=== PATIENT | female | born 1945 | race Caucasian/White ===

== ENCOUNTER 2018-01-12 11:28 | Inpatient (IN) | payer OTHER ==
[2018-01-12] MEDS ORDERED: ADENOSINE 6 MG/ 2ML VIAL IV ONE (11:33)
[2018-01-12] MEDS ORDERED: NA CHLORIDE 0.9% 1,000 ML ONE (11:34)
[2018-01-12] MEDS ORDERED: NOREPINEPHRINE 4mg/D5W 250mL 4 MG/250 ML BAG IV ONE (11:55)
[2018-01-12 12:08] LABS: Absolute Lymphocytes (CBC) 1.5 K/uL (0.7-4.9); Basophils % 0.2 % (0-1.3); Hematocrit 34.2 % (36.0-45.0); Lymphocytes % 10.6 % (15.3-44.8); MCH 30.9 pg (27.0-35.0); MCV 99.4 fL (80-100); MPV 9.7 fL (7.6-11.3); Monocytes % 6.6 % (3.3-12.3); RBC Red Blood Cell Count 3.44 M/uL (3.86-4.86)
[2018-01-12 12:12] LABS: Protime INR 1.07
[2018-01-12 12:34] LABS: ALT/SGPT 29 IU/L (10-60); AST/SGOT 30 IU/L (10-42); Alkaline Phosphatase 74 IU/L (42-121); Amylase Level 30 U/L (28-100); Bicarbonate 17 mEq/L (21-31); Bilirubin Direct < 0.1 mg/dL (0-0.2); Bilirubin Total 0.4 mg/dL (0.3-1.2); C-Reactive Protein 22.7 mg/L (<10.0); CKMB Creatine Kinase MB 1.1 ng/ml (0.3-4.0); Creatine Phosphokinase 31 IU/L (22-269); Glucose Level 221 mg/dL (65-120); Lipase 14 U/L (22-51); Potassium 5.3 mEq/L (3.6-5.0); Protein, Total 5.9 g/dL (6.0-8.3); Sodium Level 138 mEq/L (135-145)
--- NOTE | 2018-01-12 12:49 | RAD REPORT ---
EXAM DESCRIPTION: RAD - Chest Single View - 01/12/2018 12:42 pm CLINICAL HISTORY: Central line placement COMPARISON: January 2017 TECHNIQUE: AP portable chest image was obtained 1217 hours . FINDINGS: Right subclavian central line has been placed. Tip is in the right atrium. No mass, consolidation or failure. Interstitial markings are prominent but not clearly different from prior imaging. Heart and vasculature are normal. No measurable pleural effusion and no pneumothorax. No acute bone finding. No acute aortic findings suspected. IMPRESSION: Right subclavian central line placement with tip in the right atrium. No pneumothorax.
[2018-01-12] MEDS ORDERED: VANCOMYCIN 1 GM/250 ML BAG ONE (13:06)
[2018-01-12] MEDS ORDERED: NA CHLORIDE 0.9% 2,000 ML ONE (13:06)
[2018-01-12] MEDS ORDERED: CEFEPIME 1 GM/100 ML BAG IV ONE (13:06)
--- NOTE | 2018-01-12 13:31 | RAD REPORT ---
EXAM DESCRIPTION: RAD - Chest Single View - 01/12/2018 1:11 pm CLINICAL HISTORY: Central line repositioning COMPARISON: January 12 chest film TECHNIQUE: AP portable chest image was obtained 1300 hours . FINDINGS: Right subclavian central line has been modified from earlier positioning. Tip of the line is now 0 in the proximal to mid SVC. No acute bend or kink of the tubing. The remains no pneumothorax or acute lung parenchymal process. Heart and vasculature are normal. IMPRESSION: Right subclavian central line has been modified. Tip is in the proximal to mid SVC.
[2018-01-12] MEDS ORDERED: NA CHLORIDE 0.9% 750 ML ONE (13:41)
[2018-01-12 13:46] LABS: Albumin 2.8 g/dL (3.2-5.5); BUN Blood Urea Nitrogen 28 mg/dL (6-20)
[2018-01-12] MEDS ORDERED: ALBUTEROL 2.5 MG/3 ML NEB SOL ONE (14:11)
[2018-01-12] MEDS ORDERED: INSULIN -REGULAR HUMAN 50 UNIT/0.5 ML ML ONE (14:11)
[2018-01-12] MEDS ORDERED: D50W 25 GM/50 ML SYRINGE IV ONE (14:11)
--- NOTE | 2018-01-12 14:16 | RAD REPORT ---
EXAM DESCRIPTION: CT - Chest Abd Pelvis Wo Con - 01/12/2018 1:52 pm CLINICAL HISTORY: Abdominal pain, nausea, hypotension, left-sided abdominal wall bruising and tenderness tachypnea and bradycardia COMPARISON: None. TECHNIQUE: Axial 5 millimeter thick images of the chest, abdomen and pelvis were obtained without IV contrast. No oral contrast administered. All CT scans are performed using dose optimization technique as appropriate and may include automated exposure control or mA/KV adjustment according to patient size. FINDINGS: The lungs are clear of mass and infiltrate. No pneumothorax or pleural effusion. No ches t wall mass or abnormal axillary lymphadenopathy seen. Mediastinal and hilar regions show no mass or lymphadenopathy. No significant cardiac finding. Liver and spleen show no suspicious findings on noncontrast imaging. The head and body of the pancrea s show no suspicious findings. There is some fullness at the pancreatic tail. Assessment is limited b y motion and lack of IV contrast. No congestion or edema. This is probably still normal pancreatic ti ssue but can be further evaluated once the patient's more urgent findings are managed. Hemorrhage sonny r the pancreatic tail is unlikely. Motion degradation is present on the examination. Multiple gallsto katharine are seen in a normal-sized gallbladder. No biliary tree dilatation. No acute hydronephrosis of either kidney. A large 7 centimeter cyst is present upper pole left kidney with a 4.7 centimeter cyst lower pole No adrenal abnormalities. Bilateral pelvic and calyceal hyper densities are present. By report, the patient received no contrast for this examination. These are pr esumed to be nonobstructing staghorn type calculi. Urinary bladder is fully contracted around a Dupree catheter. Atrophic uterus is present. No suspicious adnexal mass. No dilated bowel loops or focal ball bowel wall thickening. No free air, free fluid or inflammatory stranding within the peritoneal or retroperitoneal spaces. No mass or bulky lymphadenopathy. In the left-side subcutaneous fatty tissues of the abdomen and pelvis there is a very large 19 centim eter CC by 12 centimeter TR x 8 centimeter AP heterogeneous lobulated mass. This has the appearance o f a very large hematoma. There is congestion or contusion change in the surrounding soft tissues. Add itional smaller hematomas are present in the subcutaneous fat along the superior medial margin measur ing 2-3 cm in size. Hematoma localizes to the subcutaneous fatty tissues. The abdominal wall and rectus musculature is di splaced posteriorly by the mass effect. Disc and bony degenerative changes are present. IMPRESSION: Large 19 x 12 x 8 cm hematoma in the subcutaneous fatty tissues of the left anterior abd omen. Hematoma does not reside within the musculature. The abdominal wall and rectus musculature disp laced posteriorly. No peritoneal or retroperitoneal hemorrhage. Fullness of the pancreatic tail. This is probably still normal range for the patient. The absence of IV contrast and the presence of motion limit assessment. Incidental note made of cholelithiasis, staghorn type renal calculi and large renal cysts. No acute chest finding.
--- NOTE | 2018-01-12 15:40 | ER ---
Nurse's Notes [facility] Name: Meredith Pearson Age: 72 yrs Sex: Female : 1945 Arrival Date: 01/12/2018 Time: 11:40 Bed 2 Private MD: Diagnosis: Acute kidney failure;Hypotension;Supraventricular tachycardia;Hematoma abdomen;Sepsis Presentation: 01/12 11:26 Note EMS vitals, BP 110/70 HR-170, pt was given the Adenosine 6mg and HR after was 150, sv BS-330. EMS stated that pt also has left upper arm swelling that is new per [facility] staff. 11:45 Acuity: JOSE ANTONIO 1 iw 11:45 Presenting complaint: EMS states: called out for abd pain, nausea, hypotension, upon iw arrival, pt was tachypneic at 40 bpm, 92% on RA, has bruising to left abdominal wall, tenderness to abdomen, rhythm was SVT at 173 bpm. Transition of care: patient was received from another setting of care (long-term care facility), [facility]. Onset of symptoms was January 12, 2018. Risk Assessment: Do you want to hurt yourself or someone else? Patient reports no desire to harm self or others. Initial Sepsis Screen: Does the patient meet any 2 criteria? RR > 20 per min. Systolic BP < 90 mmHg. HR > 90 bpm. Does the patient have a suspected source of infection? Yes: Acute abdominal pain. Care prior to arrival: Medication(s) given: Adenosine, 6 mg, x 1, IV initiated. 20 GA, in the right antecubital area, Oxygen administered. via nasal cannula. 11:45 Method Of Arrival: EMS: [facility] iw Triage Assessment: 11:26 General: Appears distressed, uncomfortable, Behavior is cooperative, anxious. Pain: sv Complains of pain in chest Pain currently is 5 out of 10 on a pain scale. Is continuous. EENT: No signs and/or symptoms were reported regarding the EENT system. Neuro: Level of Consciousness is awake, alert, obeys commands, Oriented to person, place, time, situation, Weakness in left in bilateral arm(s) leg(s) Gait is non-ambulatory. Speech is normal. Cardiovascular: Pulses are 3+ in right radial artery and left radial artery Rhythm is SVT. Respiratory: Reports shortness of breath Respiratory effort is even, labored, Respiratory pattern is tachypnea Breath sounds are clear bilaterally. GI: Abdomen is distended, bruised on left lower quadrant Abd is soft in right upper quadrant Abdomen is tender to palpation in left upper quadrant, right lower quadrant and left lower quadrant Abd is rigid in left lower quadrant Reports that she is getting Lovenox injections at the detention and they give them in her abdomen and upper arms. Derm: Skin is dry, Skin is pale, Skin temperature is cool Bruising that is on right lower quadrant and left lower quadrant. Musculoskeletal: Swelling present in left arm Reports weakness in left arm, right leg and left leg. Historical: - Allergies: 13:02 Ampicillin; iw 13:02 Aspirin; iw 13:02 PENICILLINS; iw 13:02 Tylenol; iw - PMHx: 13:12 Dementia; DVT; fatigue; Hypertension; Multiple Sclerosis; Osteoporosis; iw Tubulo-interstitial nephritis; - Immunization history:: Adult Immunizations up to date. - Social history:: Smoking status: Patient/guardian denies using tobacco. - Ebola Screening: : No symptoms or risks identified at this time. Screenin:35 Abuse screen: Denies threats or abuse. Denies injuries from another. Nutritional sv screening: No deficits noted. Tuberculosis screening: No symptoms or risk factors identified. Fall Risk No fall in past 12 months (0 pts). Secondary diagnosis (15 points) impaired mobility, MS. IV access (20 points). Ambulatory Aid- None/Bed Rest/Nurse Assist (0 pts). Gait- Impaired (20 pts.). Mental Status- Oriented to own ability (0 pts). Total Alves Fall Scale indicates High Risk Score (45 or more points). Fall prevention measures have been instituted. Side Rails Up X 2 Placed Close to Nursing Station Frequent Obs/Assessments Occuring As available patient and family educated on Fall Prevention Program and Strategies. Assessment: 11:43 Reassessment: AGNES Hardy and Dr. Jurado at bedside to set up for central line placement, iw pt now in sinus tach at 132 bpm, hypotensive at 78/54. 12:30 Reassessment: Dr Villagomez at the bedside assessing pt and speaking to her regarding code sv status. Pt is a full code at this time. 13:00 Reassessment: Patient appears in no apparent distress at this time. Patient and/or sv family updated on plan of care and expected duration. Pain level reassessed. 14:15 Reassessment: Patient appears in no apparent distress at this time. Patient and/or sv family updated on plan of care and expected duration. Pain level reassessed. Respiratory: Respiratory effort is even, unlabored, Respiratory pattern is tachypnea. 14:20 Reassessment: FFP infusion started. See paperwork transfusion record for charting. sv 15:30 Reassessment: Patient appears in no apparent distress at this time. Patient and/or sv family updated on plan of care and expected duration. Pain level reassessed. 15:58 Reassessment: 2nd unit of FFP started. See paper transfusion record. sv 16:30 Reassessment: Patient appears in no apparent distress at this time. Patient and/or sv family updated on plan of care and expected duration. Pain level reassessed. Vital Signs: 11:30 Weight 77.11 kg; sv 11:34 Pulse 166 MON; sv 11:37 BP 81 / 71; Pulse 143; sv 11:39 BP 67 / 43; Pulse 140; Pulse Ox 100% on 2 lpm NC; sv 11:44 BP 78 / 54; Pulse 130; Resp 30 S; Pulse Ox 98% on R/A; iw 11:47 BP 64 / 22; Pulse 129; Pulse Ox 100% on Non-rebreather mask; sv 11:50 BP 77 / 61; Pulse 131; Resp 28; Pulse Ox 97% ; sv 11:59 BP 89 / 69; sv 12:05 BP 82 / 34; Pulse 121; Resp 24; Pulse Ox 96% on 15% Non-rebreather mask; sv 12:08 BP 72 / 53; Pulse 118; Resp 27; Pulse Ox 100% on 15% Non-rebreather mask; sv 12:10 BP 92 / 50; Pulse 115; Resp 33; Pulse Ox 94% on 15% Non-rebreather mask; sv 12:15 BP 89 / 44; Pulse 114; Resp 29; Pulse Ox 94% on 15% Non-rebreather mask; sv 12:20 BP 88 / 72; Pulse 112; Resp 22; Pulse Ox 96% ; sv 12:25 BP 92 / 33; Pulse 117; Resp 24; Pulse Ox 100% ; sv 12:32 BP 106 / 75; Pulse 123; Resp 24; Pulse Ox 100% on 15% Non-rebreather mask; sv 12:54 BP 71 / 57; Pulse 127; Resp 26; Temp 93.5(C); Pulse Ox 96% ; sv 13:00 BP 64 / 37; Pulse 123; Pulse Ox 98% on 2 lpm NC; sv 13:13 BP 71 / 52; Pulse 118; Resp 24; Temp 97.2(C); iw 13:20 BP 86 / 66; Pulse 111; Resp 24 S; iw 13:30 BP 129 / 89; Pulse 106; Resp 21; Temp 97.5; Pulse Ox 100% on 2 lpm NC; sv 13:50 BP 121 / 63; Pulse 113; sv 14:00 BP 126 / 76; Pulse 111; Resp 24; Pulse Ox 100% on 2 lpm NC; sv 14:10 BP 131 / 97; Pulse 112 MON; Resp 26; Temp 96(C); Pulse Ox 100% on 2 lpm NC; sv 14:20 BP 126 / 101; Pulse 111; Resp 23; Temp 96.1; Pulse Ox 95% on 2 lpm NC; sv 14:25 BP 109 / 87; Pulse 138; Resp 24; Temp 96(C); Pulse Ox 100% on 2 lpm NC; sv 14:30 BP 118 / 95; Pulse 115; Resp 29; Temp 95.7(C); Pulse Ox 100% on 2 lpm NC; sv 14:35 BP 97 / 63; Pulse 117; Resp 25; Temp 95.5(C); Pulse Ox 96% on 2 lpm NC; sv 14:50 BP 135 / 80; Pulse 120; Resp 26; Temp 95.2(C); Pulse Ox 100% on 2 lpm NC; sv 15:00 BP 145 / 69; Pulse 120; Resp 24; Temp 95.1(C); Pulse Ox 100% 2 lpm ; sv 15:15 BP 145 / 85; Pulse 125; Resp 24; Temp 95.3(C); Pulse Ox 100% on 2 lpm NC; sv 15:30 BP 151 / 68; Pulse 128; Resp 24; Temp 95.6(C); Pulse Ox 100% on 2 lpm NC; sv 15:34 BP 151 / 68; Pulse 128; Resp 25; Temp 95.7; Pulse Ox 99% on 2 lpm NC; sv 15:45 BP 129 / 74; Pulse 128; Resp 24; Temp 96.3(C); Pulse Ox 100% on 2 lpm NC; sv 16:03 BP 121 / 72; Pulse 127 MON; Resp 22; Temp 96.4(C); Pulse Ox 100% on 2 lpm NC; sv 16:13 BP 95 / 56; Pulse 124; Resp 21; Temp 96.7; Pulse Ox 100% on 2 lpm NC; sv 16:26 Weight 66.68 kg (R); sv 16:28 BP 111 / 68; Pulse 119 MON; Resp 20; Temp 97.1(C); Pulse Ox 100% on 2 lpm NC; sv 16:45 BP 125 / 53; Pulse 124 MON; Resp 26; Pulse Ox 100% on 2 lpm NC; sv 11:34 SVT sv 11:37 Sinus tachycardia sv 11:39 Sinus tachycardia sv 11:47 Sinus tachycardia sv 11:59 Sinus tachycardia sv 12:05 Sinus tachycardia sv 12:08 Sinus tachycardia sv 14:10 Sinus tachycardia sv 14:25 Sinus tachycardia sv 14:30 Sinus tachycardia sv 14:35 Sinus tachycardia sv 14:50 Sinus tachycardia sv 16:03 Sinus tachycardia sv 16:28 Sinus tachycardia sv 16:45 Sinus tachycardia sv 16:26 Reported from NH. sv ED Course: 11:30 nurse monitoring on. Pulse ox on. NIBP on. sv 11:35 Patient has correct armband on for positive identification. Placed in gown. Bed in low sv position. Side rails up X2. 11:40 Patient arrived in ED. bd 11:43 Maintain EMS IV. Dressing intact. Good blood return noted. Site clean \T\ dry. Gauge \T\ iw site: 20 RAC. 11:43 Assisted provider with central line placement. Set up central line tray. Triple lumen sv line placed in right femoral. Line placed by Antony ALARCON Dressed with Tegaderm, Was a 2nd qualified MD obtained after 3 unsuccessful insertion attempts? Yes. 11:45 Triage completed. iw 11:45 Arm band placed on left wrist. sv 11:48 EKG done, by operating room technician. reviewed by Antony ALARCON. at1 11:49 EKG done, by operating room technician. reviewed by Antony ALARCON. at1 11:49 EKG done, by operating room technician. reviewed by Phillip Jurado MD post Adenosine given. at1 11:50 EKG done, by operating room technician. reviewed by Phillip Jurado MD post cardioversion. at1 12:08 Assisted provider with central line placement. Set up central line tray. Triple lumen sv line placed in right subclavian. Line placed by Antony ALARCON Placement verified by CXR, blood return, Dressed with Tegaderm, Blood was collected. Patient tolerated well. Before procedure, did Practitioner(s) obtain informed consent? No. Patient \T\ family education about procedure, CLABSI prevention and S/S of infection? Yes. Time-out/Briefing performed prior to start of procedure? Yes. Was handwashing/sanitizing done immediately prior to procedure? Yes. Was patient positioned to in a way to prevent air embolism? Yes. Was procedure site sterilized? Yes, with chlorhexidine. Was the site allowed to dry? Yes. Was local anesthetic and/or sedation utilized? Yes. During the procedure, did the Practitioner(s) maintain a sterile field? Yes. Were unused ports clamped during insertion? Yes. Was a 2nd qualified MD obtained after 3 unsuccessful insertion attempts? Yes. Was blood aspirated from each lumen? Yes. After the procedure, did the Practitioner(s) clean the site and apply a sterile dressing? Yes. 12:09 Radiology exam delayed due to CENTRAL LINE PLACEMENT. jb2 12:18 [facility] Galvan [facility]. jr8 12:18 Phillip Jurado MD is Attending Physician. jr8 12:20 X-ray(s) taken. sv 12:25 X-ray completed. Portable x-ray completed in exam room. Patient tolerated procedure jb2 well. 12:26 Chest Single View XRAY In Process Unspecified. EDMS 12:55 Escobar cath inserted, using sterile technique, 16 Fr., by mt, balloon inflated, to sv gravity drainage, other Criticore escobar Patient tolerated well. 13:01 Taylor Monique, RN is Primary Nurse. sv 13:10 CXR XRAY In Process Unspecified. EDMS 13:28 Radiology exam delayed due to. sw 13:29 Radiology exam delayed due to delay per Taylor Monique. Pt is receiving plasma at the sw moment. 13:30 Consent for blood and/or blood product transfusion explained by staff, explained by physician, signed by patient. 13:49 CT completed. Patient tolerated procedure well. Patient moved to CT via stretcher. sj Patient moved back from CT. 13:51 CT Chest Abdomen Pelvis W/O Contrast In Process Unspecified. EDMS 15:09 Bb Add On Sent. sv 15:09 C-Reactive Protein Sent. sv 15:10 BNP Sent. sv 15:10 Blood Culture Adult (2) Sent. sv 15:10 Basic Metabolic Panel Sent. sv 15:10 Amylase, Serum Sent. sv 15:38 Sandy Villagomez MD is Hospitalizing Provider. jr8 16:40 Patient admitted, IV remains in place. intact. sv 16:40 One-on-one care X 300 minutes. sv Administered Medications: 11:35 Drug: Adenosine 12 mg Route: IVP; Site: right antecubital; sv 11:40 Follow up: Response: No adverse reaction sv 13:00 Drug: Levophed (4 mg/250 mL D5W 5 mcg/min Route: IV; Rate: calculated rate; Site: right sv subclavian; 13:10 Follow up: Rate change 7 mcg/min sv 13:20 Follow up: Rate change 10 mcg/min sv 13:44 Follow up: Rate change 7 mcg/min sv 15:34 Follow up: BP 151 / 68; Pulse 128 bpm; Resp 25 bpm; Temp 95.7; Pulse Ox 99% 2 lpm Nasal sv Cannula; Rate change 6 mcg/min 18:59 Follow up: Response: No adverse reaction; IV Status: Infusion continued upon admission sv 13:20 Drug: NS 0.9% (30 ml/kg) 30 ml/kg Route: IV; Rate: bolus; Site: right subclavian; sv 14:20 Follow up: Response: No adverse reaction; IV Status: Completed infusion; IV Intake: sv 2300ml 13:20 Drug: Cefepime 1 grams Route: IVPB; Rate: 200 ml/hr; Infused Over: 30 mins; Site: right sv subclavian; 13:50 Follow up: Response: No adverse reaction; IV Status: Completed infusion; IV Intake: sv 100ml 13:33 Drug: vancoMYCIN 1 grams Route: IVPB; Infused Over: 2 hrs; Site: right subclavian; sv 15:35 Follow up: Response: No adverse reaction; IV Status: Completed infusion; IV Intake: sv 250ml 14:15 Drug: Albuterol 2.5 mg Route: Inhalation; sv 14:15 Drug: Albuterol 2.5 mg Route: Inhalation; sv 14:15 Drug: Albuterol 2.5 mg Route: Inhalation; sv 14:15 Drug: D50W 25 ml Route: IVP; Site: right subclavian; sv 14:30 Follow up: Response: No adverse reaction sv 14:15 Drug: Insulin Regular Human 10 units {Co-Signature: ss (Maggie Maxwell RN).} Route: IVP; sv Site: right subclavian; 14:30 Follow up: Response: No adverse reaction sv 14:20 Drug: NS 0.9% 1000 ml Route: IV; Rate: 100 ml/hr; Site: right subclavian; sv 16:40 Follow up: Response: No adverse reaction; IV Status: Infusion continued upon admission sv Intake: 13:50 IV: 100ml; Total: 100ml. sv 14:20 IV: 2300ml; Total: 2400ml. sv 15:35 IV: 250ml; Total: 2650ml. sv Output: 17:00 Urine: 30ml (Escobar); Total: 30ml. sv Outcome: 15:40 Decision to Hospitalize by Provider. jrEpifanio 16:39 Admitted to ICU accompanied by nurse, accompanied by tech, via stretcher, room 7, with sv oxygen, on monitor, with chart, Report called to Makayla FORTE 16:39 Condition: stable 16:39 Instructed on the need for admit. 17:27 Patient left the ED. sv Signatures: Dispatcher [employer] EDMS Tereza Vizcaino Stephanie, RN RN sv Buechter, Jesse jb2 Jones, Susan sj Williams, Irene, RN RN iw Roszak, Josh, PA PA jr8 Dottie maher, graduating machine operator EKG Tat1 Preethi Alves RN ss Corrections: (The following items were deleted from the chart) 11:45 11:44 BP 78 / 54; Pulse 130bpm; Resp 30bpm; Spontaneous; iw 13:29 13:[address] via stretcher. [facility] 15:33 12:08 Assisted provider with central line placement. Set up central line tray. Triple sv lumen line placed in right subclavian. Line placed by Antony ALARCON Placement verified by CXR, blood return, Dressed with Tegaderm, Blood was collected. Patient tolerated well. Before procedure, did Practitioner(s) obtain informed consent? No. Patient \T\ family education about procedure, CLABSI prevention and S/S of infection? Yes. Time-out/Briefing performed prior to start of procedure? Yes. Was handwashing/sanitizing done immediately prior to procedure? Yes. Was patient positioned to in a way to prevent air embolism? Yes. Was procedure site sterilized? Yes, with chlorhexidine. Was the site allowed to dry? Yes. Was local anesthetic and/or sedation utilized? Yes. During the procedure, did the Practitioner(s) maintain a sterile field? Yes. Were unused ports clamped during insertion? Yes. Was a 2nd qualified MD obtained after 3 unsuccessful insertion attempts? Yes. Was blood aspirated from each lumen? Yes. After the procedure, did the Practitioner(s) clean the site and apply a sterile dressing? Yes. sv 15:45 14:20 Reassessment: FFP infusion started. sv sv
--- NOTE | 2018-01-12 15:40 | EDPHYS ---
Physician Documentation [facility] Name: Meredith Pearson Age: 72 yrs Sex: Female : 1945 Arrival Date: 01/12/2018 Time: 11:40 Bed 2 Private MD: ED Physician Phillip Jurado HPI: 01/12 12:49 This 72 yrs old Female presents to ER via Unassigned with complaints of jr8 Abdominal Pain - SVT. 12:49 The patient presents with abdominal pain in the lower abdomen. Onset: The jr8 symptoms/episode began/occurred at an unknown time. The symptoms do not radiate. Associated signs and symptoms: Pertinent positives: nausea, palpitations, shortness of breath. Modifying factors: The symptoms are alleviated by nothing, the symptoms are aggravated by nothing. Severity of pain: At its worst the pain was moderate. The patient has not experienced similar symptoms in the past. The patient has not recently seen a physician. EMS brought patient in after being called out by [facility]. Patient was found to have rigid swollen abdomen, in SVT with hypotension and tachypnea . Historical: - Allergies: 13:02 Ampicillin; iw 13:02 Aspirin; iw 13:02 PENICILLINS; iw 13:02 Tylenol; iw - PMHx: 13:12 Dementia; DVT; fatigue; Hypertension; Multiple Sclerosis; Osteoporosis; iw Tubulo-interstitial nephritis; - Immunization history:: Adult Immunizations up to date. - Social history:: Smoking status: Patient/guardian denies using tobacco. - Ebola Screening: : No symptoms or risks identified at this time. ROS: 12:49 Eyes: Negative for injury, pain, redness, and discharge, ENT: Negative for injury, jr8 pain, and discharge, Neck: Negative for injury, pain, and swelling, Back: Negative for injury and pain, MS/Extremity: Negative for injury and deformity, Skin: Negative for injury, rash, and discoloration, Neuro: Negative for headache, weakness, numbness, tingling, and seizure. 12:49 Cardiovascular: Positive for palpitations, Negative for chest pain. 12:49 Respiratory: Positive for shortness of breath. 12:49 Abdomen/GI: Positive for abdominal pain, nausea, abdominal distension, Negative for diarrhea. Exam: 12:49 Eyes: Pupils equal round and reactive to light, extra-ocular motions intact. Lids and jr8 lashes normal. Conjunctiva and sclera are non-icteric and not injected. Cornea within normal limits. Periorbital areas with no swelling, redness, or edema. ENT: Nares patent. No nasal discharge, no septal abnormalities noted. Tympanic membranes are normal and external auditory canals are clear. Oropharynx with no redness, swelling, or masses, exudates, or evidence of obstruction, uvula midline. Dry mucous membranes Neck: Trachea midline, no thyromegaly or masses palpated, and no cervical lymphadenopathy. Supple, full range of motion without nuchal rigidity, or vertebral point tenderness. No Meningismus. Back: No spinal tenderness. No costovertebral tenderness. Full range of motion. Skin: cool moist skin. Pallor present MS/ Extremity: Pulses equal, no cyanosis. Neurovascular intact. Contracted left arm present Neuro: Awake and alert, GCS 15, oriented to person, place, time, and situation. Cranial nerves II-XII grossly intact. Motor strength 5/5 in all extremities. Sensory grossly intact. Cerebellar exam normal. Normal gait. 12:49 Cardiovascular: Rate: tachycardic, Rhythm: irregular, Pulses: Pulses are 1+ in right radial artery and left radial artery. Heart sounds: normal, normal S1and S2, no S3 or S4, no murmur, no rub, no gallop, Edema: 2+ edema to level of left midcalf, left ankle, left foot, left upper arm, left forearm, left wrist, right midcalf, right ankle and right foot. 12:49 Respiratory: Respirations: tachypnea, Breath sounds: decreased breath sounds, are located in both bases. 12:49 Abdomen/GI: Inspection: bruising, left lower quadrant, obese Palpation: moderate abdominal tenderness, in the left lower quadrant, mass, is not appreciated, rebound tenderness, is not appreciated, voluntary guarding, is not appreciated, involuntary guarding, is not appreciated, no appreciated organomegaly, rigid/solid feeling region over bruising to RLQ region. This is were lovenox has been given in NH, Indicators: McBurney's point is not tender, Jewell's sign is negative, Rovsing's sign is negative, Liver: no appreciated palpable abnormalities, tenderness, is not appreciated. Vital Signs: 11:30 Weight 77.11 kg; sv 11:34 Pulse 166 MON; sv 11:37 BP 81 / 71; Pulse 143; sv 11:39 BP 67 / 43; Pulse 140; Pulse Ox 100% on 2 lpm NC; sv 11:44 BP 78 / 54; Pulse 130; Resp 30 S; Pulse Ox 98% on R/A; iw 11:47 BP 64 / 22; Pulse 129; Pulse Ox 100% on Non-rebreather mask; sv 11:50 BP 77 / 61; Pulse 131; Resp 28; Pulse Ox 97% ; sv 11:59 BP 89 / 69; sv 12:05 BP 82 / 34; Pulse 121; Resp 24; Pulse Ox 96% on 15% Non-rebreather mask; sv 12:08 BP 72 / 53; Pulse 118; Resp 27; Pulse Ox 100% on 15% Non-rebreather mask; sv 12:10 BP 92 / 50; Pulse 115; Resp 33; Pulse Ox 94% on 15% Non-rebreather mask; sv 12:15 BP 89 / 44; Pulse 114; Resp 29; Pulse Ox 94% on 15% Non-rebreather mask; sv 12:20 BP 88 / 72; Pulse 112; Resp 22; Pulse Ox 96% ; sv 12:25 BP 92 / 33; Pulse 117; Resp 24; Pulse Ox 100% ; sv 12:32 BP 106 / 75; Pulse 123; Resp 24; Pulse Ox 100% on 15% Non-rebreather mask; sv 12:54 BP 71 / 57; Pulse 127; Resp 26; Temp 93.5(C); Pulse Ox 96% ; sv 13:00 BP 64 / 37; Pulse 123; Pulse Ox 98% on 2 lpm NC; sv 13:13 BP 71 / 52; Pulse 118; Resp 24; Temp 97.2(C); iw 13:20 BP 86 / 66; Pulse 111; Resp 24 S; iw 13:30 BP 129 / 89; Pulse 106; Resp 21; Temp 97.5; Pulse Ox 100% on 2 lpm NC; sv 13:50 BP 121 / 63; Pulse 113; sv 14:00 BP 126 / 76; Pulse 111; Resp 24; Pulse Ox 100% on 2 lpm NC; sv 14:10 BP 131 / 97; Pulse 112 MON; Resp 26; Temp 96(C); Pulse Ox 100% on 2 lpm NC; sv 14:20 BP 126 / 101; Pulse 111; Resp 23; Temp 96.1; Pulse Ox 95% on 2 lpm NC; sv 14:25 BP 109 / 87; Pulse 138; Resp 24; Temp 96(C); Pulse Ox 100% on 2 lpm NC; sv 14:30 BP 118 / 95; Pulse 115; Resp 29; Temp 95.7(C); Pulse Ox 100% on 2 lpm NC; sv 14:35 BP 97 / 63; Pulse 117; Resp 25; Temp 95.5(C); Pulse Ox 96% on 2 lpm NC; sv 14:50 BP 135 / 80; Pulse 120; Resp 26; Temp 95.2(C); Pulse Ox 100% on 2 lpm NC; sv 15:00 BP 145 / 69; Pulse 120; Resp 24; Temp 95.1(C); Pulse Ox 100% 2 lpm ; sv 15:15 BP 145 / 85; Pulse 125; Resp 24; Temp 95.3(C); Pulse Ox 100% on 2 lpm NC; sv 15:30 BP 151 / 68; Pulse 128; Resp 24; Temp 95.6(C); Pulse Ox 100% on 2 lpm NC; sv 15:34 BP 151 / 68; Pulse 128; Resp 25; Temp 95.7; Pulse Ox 99% on 2 lpm NC; sv 15:45 BP 129 / 74; Pulse 128; Resp 24; Temp 96.3(C); Pulse Ox 100% on 2 lpm NC; sv 16:03 BP 121 / 72; Pulse 127 MON; Resp 22; Temp 96.4(C); Pulse Ox 100% on 2 lpm NC; sv 16:13 BP 95 / 56; Pulse 124; Resp 21; Temp 96.7; Pulse Ox 100% on 2 lpm NC; sv 16:26 Weight 66.68 kg (R); sv 16:28 BP 111 / 68; Pulse 119 MON; Resp 20; Temp 97.1(C); Pulse Ox 100% on 2 lpm NC; sv 16:45 BP 125 / 53; Pulse 124 MON; Resp 26; Pulse Ox 100% on 2 lpm NC; sv 11:34 SVT sv 11:37 Sinus tachycardia sv 11:39 Sinus tachycardia sv 11:47 Sinus tachycardia sv 11:59 Sinus tachycardia sv 12:05 Sinus tachycardia sv 12:08 Sinus tachycardia sv 14:10 Sinus tachycardia sv 14:25 Sinus tachycardia sv 14:30 Sinus tachycardia sv 14:35 Sinus tachycardia sv 14:50 Sinus tachycardia sv 16:03 Sinus tachycardia sv 16:28 Sinus tachycardia sv 16:45 Sinus tachycardia sv 16:26 Reported from NH. sv Procedures: 12:20 Central Line: the site was prepped with Betadine, in sterile fashion, a triple lumen jr8 catheter was inserted, in the right femoral vein, in 1 attempts. the patient tolerated the procedure, well, Unable to pass guidewire to acceptable level. Blood draw from site normal. Plaque, vs clot, vs anatomic abnormality suspected. Central Line: the site was prepped with Betadine, in sterile fashion, a triple lumen catheter was inserted, in the right subclavian vein, in 1 attempts. placement was verified, by CXR, by blood return, the site was dressed with 4X4s, Tegaderm, using sterile technique, the patient tolerated the procedure, well. MDM: 12:18 Patient medically screened. [facility] 12:25 ED course: Dr. Villagomez consulted as it is his patient. Dr. Villagomez coming down to ED to see 8 patient . 12:25 Data reviewed: vital signs, nurses notes. Physician consultation: A Dahlia KIM was kdr contacted at 12:26, and will see patient in ED, immediately. ED course: I was in the room for the initial exam and the central line attempts. She tolerated the procedures well including the attempt at chemical conversion and the central line placement. 13:10 ED course: Dr. Villagomez wants to add 3 units FFP . [facility] 01/12 11:42 Order name: Amylase, Serum 01/12 11:42 Order name: Basic Metabolic Panel 01/12 11:42 Order name: Blood Culture Adult (2) 01/12 11:42 Order name: BNP 01/12 11:42 Order name: C-Reactive Protein 01/12 11:42 Order name: CBC with Diff; Complete Time: 12:41 01/12 11:42 Order name: Ckmb; Complete Time: 13:55 01/12 11:42 Order name: CPK; Complete Time: 13:55 01/12 11:42 Order name: Lactate; Complete Time: 13:10 01/12 11:42 Order name: LFT's; Complete Time: 13:55 01/12 11:42 Order name: Lipase; Complete Time: 13:55 iw 01/12 11:42 Order name: Procalcitonin; Complete Time: 13:39 iw 01/12 11:42 Order name: Protime (+inr); Complete Time: 12:25 iw 01/12 11:42 Order name: Ptt, Activated; Complete Time: 12:25 iw 01/12 11:42 Order name: Sed Rate; Complete Time: 12:41 iw 01/12 11:42 Order name: Troponin (emerg Dept Use Only); Complete Time: 12:41 iw 01/12 11:42 Order name: Chest Single View XRAY; Complete Time: 13:01 iw 01/12 11:42 Order name: Type And Screen iw 01/12 11:42 Order name: Amylase Level; Complete Time: 13:55 EDRI 01/12 11:42 Order name: Basic Metabolic Panel; Complete Time: 13:55 EDMS 01/12 11:42 Order name: Blood Culture EDRI 01/12 11:42 Order name: BNP B-Type Natriuretic Peptide; Complete Time: 12:41 EDMS 01/12 11:42 Order name: C-Reactive Protein; Complete Time: 13:55 EDMS 01/12 13:01 Order name: CXR XRAY; Complete Time: 13:39 bd 01/12 13:09 Order name: Bb Add On bd 01/12 13:15 Order name: Fresh Frozen Plasma EDRI 08 13:17 Order name: CT Chest Abdomen Pelvis W/O Contrast; Complete Time: 14:18 01/12 13:25 Order name: ABO/RH no charge; Complete Time: 13:39 EDRI 01/12 11:42 Order name: Cardiac monitoring; Complete Time: 15:17 01/12 11:42 Order name: EKG - Nurse/Tech; Complete Time: 15:17 01/12 11:42 Order name: IV Saline Lock - Large Bore; Complete Time: 15:17 01/12 11:42 Order name: Labs collected and sent; Complete Time: 15:17 01/12 11:42 Order name: O2 Per Protocol; Complete Time: 15:17 01/12 11:42 Order name: O2 Sat Monitoring; Complete Time: 15:17 01/12 11:55 Order name: EKG Electrocardiogram EDRI 01/12 11:55 Order name: EKG Electrocardiogram EDMS 01/12 11:55 Order name: EKG Electrocardiogram EDMS 01/12 11:55 Order name: EKG Electrocardiogram EDMS 01/12 14:57 Order name: CONS Physician Consult EDMS Administered Medications: 11:35 Drug: Adenosine 12 mg Route: IVP; Site: right antecubital; sv 11:40 Follow up: Response: No adverse reaction sv 13:00 Drug: Levophed (4 mg/250 mL D5W 5 mcg/min Route: IV; Rate: calculated rate; Site: right sv subclavian; 13:10 Follow up: Rate change 7 mcg/min sv 13:20 Follow up: Rate change 10 mcg/min sv 13:44 Follow up: Rate change 7 mcg/min sv 15:34 Follow up: BP 151 / 68; Pulse 128 bpm; Resp 25 bpm; Temp 95.7; Pulse Ox 99% 2 lpm Nasal sv Cannula; Rate change 6 mcg/min 18:59 Follow up: Response: No adverse reaction; IV Status: Infusion continued upon admission sv 13:20 Drug: NS 0.9% (30 ml/kg) 30 ml/kg Route: IV; Rate: bolus; Site: right subclavian; sv 14:20 Follow up: Response: No adverse reaction; IV Status: Completed infusion; IV Intake: sv 2300ml 13:20 Drug: Cefepime 1 grams Route: IVPB; Rate: 200 ml/hr; Infused Over: 30 mins; Site: right sv subclavian; 13:50 Follow up: Response: No adverse reaction; IV Status: Completed infusion; IV Intake: sv 100ml 13:33 Drug: vancoMYCIN 1 grams Route: IVPB; Infused Over: 2 hrs; Site: right subclavian; sv 15:35 Follow up: Response: No adverse reaction; IV Status: Completed infusion; IV Intake: sv 250ml 14:15 Drug: Albuterol 2.5 mg Route: Inhalation; sv 14:15 Drug: Albuterol 2.5 mg Route: Inhalation; sv 14:15 Drug: Albuterol 2.5 mg Route: Inhalation; sv 14:15 Drug: D50W 25 ml Route: IVP; Site: right subclavian; sv 14:30 Follow up: Response: No adverse reaction sv 14:15 Drug: Insulin Regular Human 10 units {Co-Signature: ss Abe Maxwell RN).} Route: IVP; sv Site: right subclavian; 14:30 Follow up: Response: No adverse reaction sv 14:20 Drug: NS 0.9% 1000 ml Route: IV; Rate: 100 ml/hr; Site: right subclavian; sv 16:40 Follow up: Response: No adverse reaction; IV Status: Infusion continued upon admission sv Disposition: 18:44 Co-signature as Attending Physician, Phillip Jurado MD I agree with the assessment and kdr plan of care. Disposition: 01/12/18 15:40 Hospitalization ordered by Sandy Villagomez for Inpatient Admission. Preliminary diagnosis are Acute kidney failure, Hypotension, Supraventricular tachycardia, Hematoma abdomen, Sepsis. - Bed requested for Intensive Care Unit. - Status is Inpatient Admission. sv - Condition is Fair. - Problem is new. - Symptoms have improved. UTI on Admission? No Critical care time excluding procedures: 16:14 Critical care time: Bedside Care: 20 minutes, Consultation: 15 minutes, Family jr8 Intervention: 5 minutes, labs and imaging review: 20 minutes. Total time: 60 minutes Signatures: Dispatcher [employer] EDMS Tereza Vizcaino Stephanie, RN RN sv Rittger, Kevin, MD MD [facility] Donna Lugo RN RN iw Roszak, Josh, PA PA jr8 Maggie Maxwell RN ss Corrections: (The following items were deleted from the chart) 13:02 12:49 Eyes: Pupils equal round and reactive to light, extra-ocular motions intact. Lids jr8 and lashes normal. Conjunctiva and sclera are non-icteric and not injected. Cornea within normal limits. Periorbital areas with no swelling, redness, or edema. ENT: Nares patent. No nasal discharge, no septal abnormalities noted. Tympanic membranes are normal and external auditory canals are clear. Oropharynx with no redness, swelling, or masses, exudates, or evidence of obstruction, uvula midline. Dry mucous membranes Neck: Trachea midline, no thyromegaly or masses palpated, and no cervical lymphadenopathy. Supple, full range of motion without nuchal rigidity, or vertebral point tenderness. No Meningismus. Back: No spinal tenderness. No costovertebral tenderness. Full range of motion. Skin: Warm, dry with normal turgor. Normal color with no rashes, no lesions, and no evidence of cellulitis. MS/ Extremity: Pulses equal, no cyanosis. Neurovascular intact. Contracted left arm present Neuro: Awake and alert, GCS 15, oriented to person, place, time, and situation. Cranial nerves II-XII grossly intact. Motor strength 5/5 in all extremities. Sensory grossly intact. Cerebellar exam normal. Normal gait. jr8 15:17 11:42 Accucheck ordered. iw sv 15:41 15:40 Hospitalization Ordered by A Dahlia KIM for Inpatient Admission. Preliminary bd diagnosis is Acute kidney failure; Hypotension; Supraventricular tachycardia; Hematoma abdomen; Sepsis. Bed requested for Intensive Care Unit. Status is Inpatient Admission. Condition is Fair. Problem is new. Symptoms have improved. UTI on Admission? No. jr8 15:44 15:41 01/12/2018 15:40 Hospitalization Ordered by A Dahlia KIM for Inpatient Admission. bd Preliminary diagnosis is Acute kidney failure; Hypotension; Supraventricular tachycardia; Hematoma abdomen; Sepsis. Bed requested for Intensive Care Unit. Status is Inpatient Admission. Condition is Fair. Problem is new. Symptoms have improved. UTI on Admission? No. bd 17:27 15:44 01/12/2018 15:40 Hospitalization Ordered by A Dahlia KIM for Inpatient Admission. sv Preliminary diagnosis is Acute kidney failure; Hypotension; Supraventricular tachycardia; Hematoma abdomen; Sepsis. Bed requested for Intensive Care Unit. Status is Inpatient Admission. Condition is Fair. Problem is new. Symptoms have improved. UTI on Admission? No. bd
[2018-01-12] MEDS ORDERED: DIPHENHYDRAMINE 50 MG/ML VIAL IV ONE (16:53)
[2018-01-12] MEDS ORDERED: NA CHLORIDE 0.9% 250 ML IV SCH (16:53)
[2018-01-12] MEDS ORDERED: ACETAMINOPHEN 500 MG TAB PO PRN (16:53)
[2018-01-12] MEDS ORDERED: NA CHLORIDE 0.9% 1,000 ML IV SCH (16:53)
[2018-01-12] MEDS ORDERED: ONDANSETRON 4 MG/2 ML VIAL IV PRN (16:53)
[2018-01-12 18:23] LABS: Hematocrit 15.7 % (36.0-45.0)
[2018-01-12] MEDS ORDERED: FUROSEMIDE 20 MG/ 2ML VIAL IV ONE (18:37)
[2018-01-12 18:39] LABS: Urine Blood 2+ (NEG); Urine Glucose 1+ (NEG); Urine Protein 2+ (NEG); Urine Specific Gravity 1.025 (1.005-1.030)
[2018-01-12 19:51] LABS: Potassium 4.5 mEq/L (3.6-5.0)
[2018-01-12] MEDS ORDERED: NA CHLORIDE 0.9% 250 ML ONE (19:53)
[2018-01-12] MEDS ORDERED: NA CHLORIDE 0.9% 250 ML IV PRN ×2 (20:22→20:32)
[2018-01-12] MEDS: NA CHLORIDE 0.9% 250 ML IV SCH (20:56)
[2018-01-12] MEDS: FAMOTIDINE 20 MG/2 ML VIAL IV SCH (20:57)
[2018-01-12] MEDS ORDERED: D5W 1,000 ML IV ONE (21:14)
[2018-01-12] MEDS: D5W 1,000 ML with NA BICARB 8.4% 100 MEQ IV SCH ×2 (21:19)
[2018-01-12] MEDS: NOREPINEPHRINE 4 MG in D5W 250 ML IV PRN (21:20)
--- NOTE | 2018-01-12 21:31 | RAD REPORT ---
EXAM DESCRIPTION: VASExtrem Venous W Compress Bil01/12/2018 9:12 pm CLINICAL HISTORY: Bilateral leg swelling COMPARISON: none FINDINGS: Echogenic material is present within the right common femoral vein. The vein is not compre ssible. It has the appearance of subacute thrombus. The right superficial femoral, right popliteal, right posterior tibial veins as well as the deep vein s of left lower extremity are compressible and demonstrate augmentation. Doppler demonstrates good fl ow IMPRESSION: Thrombus within the right common femoral vein appears subacute. The exam was discussed w chidi Villagomez 9:25 p.m. January 12, 2018.
[2018-01-12 21:33] LABS: Urine Appearance TURBID; Urine Bilirubin NEGATIVE (NEG); Urine Blood 2+ (NEG); Urine Color YELLOW; Urine Glucose NEGATIVE (NEG); Urine Protein 2+ (NEG); Urine Specific Gravity 1.015 (1.005-1.030); Urine Urobilinogen 0.2 mg/dL (0.2-1.0); Urine pH 6.5 (5.0-7.0)
[2018-01-12 22:16] LABS: Urine Amorphous Sediment 1+ /HPF (NONE SEEN); Urine Bacteria <20 /HPF (<20); Urine Culture Reflex Order REFLEXED
[2018-01-12 22:17] LABS: Urine Triple Phosphate Crystal FEW (NONE SEEN)
[2018-01-13] MEDS ORDERED: CEFEPIME 1 GM/VIAL IV SCH
--- NOTE | 2018-01-13 02:12 | HP ---
Date of Admission: 01/12/2018 Chief Complaint: Nausea, abdominal pain. History Of Present Illness: A 72-year-old female patient living at [facility], is bedboun d, and she has end-stage multiple sclerosis. She stays in bed all day. She is not able to get out o f bed, and because of her advanced multiple sclerosis, she is spending 100% of her time in the bed. About a year ago or so, she was diagnosed as having DVT of her leg and she was started on Eliquis. S he did very well with Eliquis, and while she was on Eliquis within last month to 2 months, she develo ped another DVT of both lower extremities, and considering this DVT while on Eliquis, it was consider ed as failure of Eliquis, so we have discontinued Eliquis and started her on Lovenox. She did well o n Lovenox, responded well. Repeat Doppler study of legs showed resolution of her DVT and Lovenox was continued, and today all of a sudden, she started to have abdominal pain, nausea. Nurse on duty at [facility] noted large abdominal wall bruising and the patient was transferred to the emergency [facility]. In the ER when she was evaluated, her blood pressure was low, and it dropped down to systolic 64. Fluid resuscitation was provided and I saw her in the emergency room this morning and her systolic blood pressure was around 94 or so at that time. By that time, she had already received 1 L of IV fl uid. Another 500 cc of IV fluid was ordered at that time and subsequently she was started on vasopre ssor medication. Further workup was done in the emergency room, and the patient was admitted to inte nsive care unit. The patient has out of hospital, DNR, and we have a copy of that, but when I talked to her about her advance directive while in the hospital, she was not able to make any decision, so she remains full code until she makes the decision about DNR and she was made aware of that and she u nderstands that. I will try to communicate with her again tomorrow regarding advance directives. Medications: List reviewed. Review of Systems: GI: As mentioned above. BRIQUETTE MAKER: The patient has end-stage multiple sclerosis and she is bed bound as a result of that. All other systems reviewed and negative. Allergies: TO TYLENOL, SHE IS LISTED ALLERGIC, BUT SHE DESCRIBES IT DOES NOT HELP WITH THE PAIN, OTHERWISE SHE IS LISTED ALLERGIC TO PENICILLIN CAUSING RASH AND ITCHING, ASPIRIN INTERACTS WITH IN TERFERON. ALL OTHER SYSTEMS REVIEWED AND NEGATIVE. Past Medical History: Significant for multiple sclerosis, hypertension, allergic rhinitis, deep vein thrombosis of lower extremities, and osteoporosis. Past Surgical History: Negative. Family History: Not pertinent. Social History: Negative for smoking and alcohol use. Physical Examination: Vital Signs: When she first came into emergency room, pulse rate was 166, blood pressure 81/71, lowe st blood pressure was 64/22. Initial temperature 93.5 and then subsequently temperature was 97.2. General: Awake, alert, oriented, not in distress. HEENT: Head atraumatic, normocephalic. Conjunctivae nonerythematous. Sclerae white. Mouth, no thr ush or edema noted. Ears/Nose, no mass, lesion, discharge noted. Neck: Supple. No JVD, lymph nodes, bruit, thyromegaly noted. Lungs: Bilateral good equal air entry. Clear to auscultation. No rhonchi. No rales. Heart: Normal heart sounds, no murmur or gallop. Abdomen: Appears slightly distended. Has extremely large area of hematoma involving the entire left abdominal wall muscles and it is tender to touch, bluish in color. Bowel sounds normal. No guardin g or rigidity on right side of abdomen. No tenderness on the right side of abdomen. Extremities: Trace to grade 1 pedal edema, more on the right leg than the left leg. Skin: No rash, ulcer, cellulitis. Lymphatics: No lymph node enlargement in neck, supraclavicular, infraclavicular region. Neuro: No focal neurological deficit. Chest: Unremarkable. External Genitalia: Deferred. Rectal: Deferred. BRIQUETTE MAKER: The patient is not able to move lower extremities at all and upper extremity movement is limite d and has atrophy of all the 4 extremity muscles. Laboratory Data: Chest x-ray; no evidence of pneumothorax, presence of right subclavian line placeme nt with tip in the right atrium. CAT scan of chest, abdomen, and pelvis shows a large 19 x 12 x 8 cm hematoma in the subcutaneous fatty tissue of the left anterior abdomen, hematoma does not reside wit hin the musculature, abdominal wall and rectus musculature displaced posteriorly, no peritoneal or re troperitoneal hemorrhage, fullness of the pancreatic tail, presence of gallstone, staghorn type of re nal calculi, and large renal cyst, no acute chest finding. White count 14.5, hemoglobin 10.6, platel ets 306. Sodium 138, potassium 5.3, chloride 108, bicarb 17, BUN 28, creatinine 1.67, glucose 221. Liver function tests unremarkable. Lactic acid 46. Troponin less than 0.03. Procalcitonin 0.37. L ipase 14. Repeat hemoglobin at 5:35 p.m. was 5 and initial hemoglobin of 10.6, was at 11:30 a.m. Impression: 1.Acute hematoma, abdominal wall. 2.Acute blood loss anemia. 3.Hemorrhagic shock. 4.Acute renal failure. 5.Hyperkalemia. 6.Multiple sclerosis. 7.Deep venous thrombosis, leg. 8.Osteoporosis. 9.Allergic rhinitis. Plan: Admit the patient to hospital for further evaluation and management of this problem. The fay ent is appropriate for inpatient and she will be admitted to intensive care unit. After her arrival to the emergency room, she received IV fluid resuscitation. Her heart rate was 170-180 per minute wh en she was brought in via ambulance and she received adenosine in the ambulance and another dose of a denosis in the emergency room. When I saw her, she was in sinus rhythm with sinus tachycardia with h eart rate around 110 or so. I did order 2 units of fresh frozen plasma to be given in the emergency room, and we will monitor hemoglobin frequently. Give blood transfusion as it becomes necessary per order. We will get a venous Doppler of lower extremity, and if it is negative, then we will go ahead and order SCD. Keep her n.p.o. Empiric antibiotic will be given per order. We will consult nephro logist and GI prophylaxis will be given using famotidine. The patient has family members, these are distant family members, living out of town, and I did call and talked to both of them. One is lady, contact #[phone], and another contact number for her [phone]. I also talked to Dr. Rajesh funez at [phone], and details were discussed with both of these family members. Overall, prognos is is poor. The patient will not be able to take any anticoagulant medication in the future and one will need to consider IVC filter placement type of device in the future if it is necessary. I will s ee her tomorrow for followup. LAUREN/WAI Voice ID: [id number]
[2018-01-13] MEDS: CEFEPIME/SWI 1gm 1 GM/10 ML SYR IV SCH ×2 (05:35→18:18)
[2018-01-13 07:21] LABS: Protime INR 1.08
[2018-01-13 07:25] LABS: Absolute Lymphocytes (CBC) 1.5 K/uL (0.7-4.9); Absolute Monocytes 2.4 K/uL (0.1-1.3); Absolute Neutrophil 12.5 K/uL (1.8-8.0); Basophils % 0.1 % (0-1.3); Hematocrit 29.9 % (36.0-45.0); Lymphocytes % 9.4 % (15.3-44.8); MCH 29.9 pg (27.0-35.0); MCV 87.5 fL (80-100); MPV 10.2 fL (7.6-11.3); Monocytes % 14.8 % (3.3-12.3); RBC Red Blood Cell Count 3.42 M/uL (3.86-4.86)
[2018-01-13 07:30] LABS: Potassium 4.8 mEq/L (3.6-5.0)
[2018-01-13 07:31] LABS: Magnesium 1.5 mg/dL (1.8-2.5); Phosphorus 4.4 mg/dL (2.5-4.3); Uric Acid 5.6 mg/dL (2.6-8.0)
[2018-01-13 07:49] LABS: Blood Morphology Comment NOT SEEN (NOT SEEN); Platelet Estimate DECR; Urine White Blood Cell Casts OK
--- NOTE | 2018-01-13 07:57 | EKG ---
Test Date: 2018-01-12 Test Time: 11:31:29 Electronics Engineering Technologist: PRESTON MEASUREMENT RESULTS: Intervals: Rate: 287 [place]: QRSD: 134 QT: 130 QTc: 284 [place]: P: DE: QRS: 26 T: 0 INTERPRETIVE STATEMENTS: Wide QRS tachycardia with fusion complexes Right bundle branch block Cannot rule out Inferior infarct, age undetermined Abnormal ECG Compared to ECG 01/12/2018 11:30:20 Fusion complex(es) now present Wide-QRS tachycardia now present Right bundle-branch block now present Ventricular-paced complex(es) or rhythm no longer present Atrial fibrillation no longer present Ventricular premature complex(es) no longer present Myocardial infarct finding still present Electronically Signed On 01-13-18 07:55:06 CDT by Mundo Johnson
--- NOTE | 2018-01-13 07:57 | EKG ---
Test Date: 2018-01-12 Test Time: 11:30:20 Retail District Manager: PRESTON MEASUREMENT RESULTS: Intervals: Rate: 46 [place]: QRSD: 126 QT: 390 QTc: 341 [place]: P: MO: QRS: 36 T: 66 INTERPRETIVE STATEMENTS: Demand pacemaker, interpretation is based on intrinsic rhythm Atrial fibrillation with slow ventricular response with premature ventricular or aberrantly conducted complexes Nonspecific intraventricular block Cannot rule out Septal infarct, age undetermined Possible Lateral infarct, age undetermined Abnormal ECG Compared to ECG 01/12/2018 11:26:24 Myocardial infarct finding now present Atrial flutter no longer present ST (T wave) deviation no longer present Electronically Signed On 01-13-18 07:55:07 CDT by Mundo Johnson
--- NOTE | 2018-01-13 07:58 | EKG ---
Test Date: 2018-01-12 Test Time: 11:26:24 Process Safety Engineer: PRESTON MEASUREMENT RESULTS: Intervals: Rate: 186 [place]: QRSD: 76 QT: 276 QTc: 485 [place]: P: CA: QRS: 45 T: 58 INTERPRETIVE STATEMENTS: Atrial flutter with variable AV block with premature ventricular or aberrantly conducted complexes ST abnormality, possible digitalis effect Abnormal ECG Compared to ECG 01/12/2018 11:25:06 Supraventricular tachycardia no longer present Fusion complex(es) no longer present ST (T wave) deviation still present Electronically Signed On 01-13-18 07:55:08 CDT by Mundo Johnson
--- NOTE | 2018-01-13 07:58 | EKG ---
Test Date: 2018-01-12 Test Time: 11:25:06 High School French Teacher: PRESTON MEASUREMENT RESULTS: Intervals: Rate: 183 [place]: QRSD: 78 QT: 278 QTc: 485 [place]: P: AL: QRS: 38 T: 55 INTERPRETIVE STATEMENTS: Supraventricular tachycardia with frequent and consecutive premature ventricular complexes and fusion complexes Nonspecific ST abnormality Abnormal ECG Compared to ECG 01/31/2017 09:20:59 Fusion complex(es) now present Ventricular premature complex(es) now present ST (T wave) deviation now present Sinus rhythm no longer present Electronically Signed On 01-13-18 07:55:09 CDT by Mundo Johnson
[2018-01-13] MEDS: D5W 1,000 ML with NA BICARB 8.4% 100 MEQ IV SCH ×4 (08:03→18:31)
[2018-01-13] MEDS: FAMOTIDINE 20 MG/2 ML VIAL IV SCH ×2 (08:05→19:50)
[2018-01-13 11:52] LABS: Hematocrit 27.9 % (36.0-45.0)
[2018-01-13] MEDS ORDERED: NA CHLORIDE 0.9% 250 ML ONE ×2 (11:52→18:19)
[2018-01-13] MEDS: NOREPINEPHRINE 4 MG in D5W 250 ML IV PRN ×2 (13:11→20:02)
--- NOTE | 2018-01-13 15:09 | PN ---
Date of Progress Note: 01/13/2018 Subjective: The patient was seen this morning for followup. No new complaints or problems reported by patient. Lying in bed, not in distress. Objective: Vital Signs: Reviewed. Intake and output records reviewed. General: The patient is awake, alert, not in any respiratory distress, answering questions appropria tely. Lungs: Clear to auscultation. Cardiac: Heart sounds normal. Abdomen: Soft. Bowel sounds normal. Large bruising with hematoma of abdominal wall on the left ant erior abdominal wall remains unchanged. Extremity: Leg edema remains unchanged. Laboratory Data: White count 16.5, hemoglobin 10.2 after 3 units of PRBC blood transfusion overnight . Platelet count down to 96. Sodium 140, potassium 4.8, chloride 114, bicarb 18, BUN 30, creatinine 1.64, glucose 227. phosphorus 4.4, magnesium 1.5. Impression: 1.Acute blood loss anemia. 2.Hemorrhagic shock. 3.Acute renal failure. 4.Hematoma, abdominal wall, secondary to anticoagulation, Lovenox. 5.Deep vein thrombosis, right leg. 6.Multiple sclerosis, advanced. Plan: We will go ahead and continue current IV fluid, vasopressor medication. Monitor intake output . Monitor the patient's hemoglobin. Give blood transfusion as it becomes necessary, and we will ord er 1 unit of single donor platelets today. I did talk to patient this morning in presence of ICU clarita se regarding her advanced directive, and she tells me that she really does not want any CPR or life s upport machine, but she is not 100% sure about her decision, so after I spend some time talking to he r in presence of nurse, I have advised the nurse to go back and talk to her again and ask the patient to think about her decision and let us know. Her overall prognosis is guarded. The patient will remain in IC U. LAUREN/MODL Voice ID: [id number] Report ID: [id number]
[2018-01-13] MEDS ORDERED: NA CHLORIDE 0.9% 500 ML ONE (15:14)
[2018-01-13] MEDS: NA CHLORIDE 0.9% 1,000 ML IV SCH (15:49)
[2018-01-13 17:14] LABS: Absolute Lymphocytes (CBC) 2.3 K/uL (0.7-4.9); Absolute Monocytes 2.2 K/uL (0.1-1.3); Absolute Neutrophil 16.7 K/uL (1.8-8.0); Basophils % 0.1 % (0-1.3); Hematocrit 20.8 % (36.0-45.0); Lymphocytes % 10.7 % (15.3-44.8); MCH 29.5 pg (27.0-35.0); MCV 86.9 fL (80-100); MPV 8.8 fL (7.6-11.3); Monocytes % 10.2 % (3.3-12.3); RBC Red Blood Cell Count 2.39 M/uL (3.86-4.86)
--- NOTE | 2018-01-13 17:21 | RAD REPORT ---
EXAM DESCRIPTION: US - Renal Ultrasound-Complete - 01/13/2018 5:15 pm CLINICAL HISTORY: Acute renal failure. COMPARISON: None. FINDINGS: Both kidneys are mildly echogenic. The right kidney measures 10.4 x 5.8 x 4.6 cm.. No hydronephrosis. Prominent right renal cyst is note d, benign in appearance measuring 5 cm. The left kidney measures 10.9 x 5.2 x 4.0 cm. No hydronephrosis. Prominent anechoic left renal cyst i s also noted measuring 7 cm. IMPRESSION: Bilateral echogenic kidneys most compatible with underlying medical renal disease. Benign renal cysts bilaterally.
[2018-01-13] MEDS ORDERED: FUROSEMIDE 40 MG/4 ML VIAL IV ONE (19:05)
--- NOTE | 2018-01-13 19:23 | CON ---
Date of Consultation: 01/13/2018 Reason For Consult: Acute renal insufficiency. History Of Present Illness: Ms. Pearson is a 72-year-old, very pleasant female who is bed[facility] at a [facility] secondary to underlying multiple sclerosis with contractures and history of multiple DVT s, who presented to [facility] after she was found to have large abdominal wall bruising wit h hypotension. The patient had been on Eliquis previously, but has been switched over to Lovenox because of failure of Eliquis. Despite that, she has been getting chronic lower extremity DVTs. She was found to be in hemorrhagic shock with blood pressure in the 60s and 70s. She also was noted to be in SVT and had m ultiple doses of adenosine, which was given with improvement in her SVTs. She has been in sinus tach ycardia since. She has been transferred to the ICU. Her hemoglobin was found to be 5. She has rece ived 3 units of blood transfusion along with FFP and also 1 unit of platelets this morning. She has been oliguric to anuric and Nephrology is being consulted for further evaluation. The patient was also found to have a huge abdominal wall hematoma measuring about 19 x 12 x 8 cm in t he subcutaneous fatty tissues of the left anterior abdomen, and it was pushing down on the abdominal wall and the rectus musculature posteriorly. She has been started on D5 with 2 amps of sodium bicarb christo and also has been on Levophed because of severe hypotension. The patient denies any pain at this time. She denies any shortness of breath. Denies any chest pain . All review of systems are negative. Past Medical History: Significant for history of multiple sclerosis, history of recurrent DVTs, hype rtension, osteoporosis. She has contracture of the left arm. Past Surgical History: Negative. Family History: Not pertinent. Social History: Negative for tobacco and alcohol use. [facility]. Review of Systems: As mentioned in history of present illness Physical Examination: Vital Signs: Showing temperature of 97.2, pulse rate of 120, respiratory rate of 24, blood pressure of 79/69. General: She appears thin, cachectic, malnourished. HEENT: Shows atraumatic head. Lungs: Auscultation of the lungs revealed bilateral equal air entry anteriorly. Left arm is contrac maggi. She is able to move the right arm. Abdomen: With a huge hematoma noted with bruising underlying. She does not seem to be having any ab dominal wall tenderness, rebound or guarding on the other areas of the abdomen where the hematoma is not covering. Extremities: Were very cold to touch. However, Dopplers were palpable. We were able to find the pu lse with Dopplers. She has trace swelling of the left lower extremity and the right lower extremity has about 1+ pitting edema. She has a Dupree catheter in place. Laboratory Data: Showing sodium of 140, potassium of 4.8, chloride of 114, bicarb of 18, BUN of 30, and creatinine of 1.6. Lactic acid has increased from 46-68 this morning, and magnesium was very low at 1.5. CBC showing hemoglobin of 9.4, hematocrit 27.9, which is improved from a hemoglobin of 5 at the time of admission. Urinalysis showed evidence of urinary tract infection and cultures are still pending at this time. Current Medications: Include cefepime 1 g every 12 hours, Benadryl x1 time dose, Lasix x1 time dose. She is receiving D5 with 2 amps of sodium bicarbonate. Impression: 1.Acute renal insufficiency secondary to acute tubular necrosis from hemorrhagic shock. The patient is oliguric to anuric at this time. Concern for abdominal compartment syndrome versus renal vein th rombosis, but most likely possibly from acute tubular necrosis. We will get renal vein Dopplers as w ell as renal ultrasound for further evaluation. We will try to give her some more fluids with normal saline up to 2 L and monitor her MAP and try to wean down her Levophed and monitor her closely. 2.Hypotension, secondary to hemorrhagic shock. The patient does have chronic hypotension. We will try to wean off Levophed and give more volume and monitor her closely to prevent further vasospasms. 3.Abdominal wall hematoma secondary to complication of Lovenox. The patient does not seem to be hav ing any compartment syndrome at this time as the location of the hematoma seems to be external, and c linically also she does not have any rebound or guarding, and she does have palpable Dopplers on her bilateral lower extremities. Bladder pressure has been checked and was noted to be a 9, not elevated . Hence, we will hold off on requesting any General Surgery consultation for drainage of the hematom a. 4.Anemia, secondary to blood loss. Currently stable. Monitor. 5.Recurrent deep vein thrombosis. The patient will benefit from IVC filter as outpatient after she improves her condition. The patient cannot be on further anticoagulation. 6.Severe debility and weakness and bed-bound status secondary to multiple sclerosis with poor progno sis overall. 7.Possible urinary tract infection. Currently remains on cefepime 1 g every 12 hours. Plan: The patient's condition is very guarded at this time. She has been oliguric to anuric. We wi ll request renal ultrasound along with renal vein Dopplers and monitor her urine output closely, and may need to give Lasix if blood pressure is improving. We will try to wean off Levophed as tolerated and avoid hypotension and nephrotoxic agents as much as we can. We will continue the antibiotics fo r urinary tract infection and monitor her closely. Discussed the case with Dr. Villagomez in detail and also with the patient in detail, explained all her con dition. Time spent about 1 hour. HENRI/WAI Voice ID: [id number] Report ID: [id number]
[2018-01-13 19:24] LABS: Blood Morphology Comment NOT SEEN (NOT SEEN); Platelet Estimate ADEQ
--- NOTE | 2018-01-13 22:11 | P.CNS ---
Date of Consult: 01/13/18 PC: I was asked to see this 72-year-old female in regards to a abdominal wall hematoma. HPC: This 72-year-old female, with multiple sclerosis, has been on Eliquis for any DVTs. She recently had an episode of hypotension was brought to the emergency room for evaluation and treatment. She was found to have a large hematoma most likely due to her anticoagulants. PMH: Multiple sclerosis PSHx: NAD SOC: Conclusion acetaminophen ampicillin and aspirin SYS REVIEW: patient states that she is okay, and her health has been about the same over the last few months. O/E awake alert conversant, BP 118/80 HEENT: not jaundiced Chest: Chest movements equal bilaterally ABD: as a large palpable hematoma on the left side of her abdomen measuring approximately 20 cm x 12 cm in size. The right side of her abdomen is soft, nontender, it is not tense. LOCO: Intact DATA: Patient has received 3 units of blood, also some platelets and some fresh frozen. Her hemoglobin at the current time is 7.5/26th IMPRESSION: Abdominal wall hematoma however this is confined mainly to the subcutaneous tissue. It does not heal the deep fascia. Below the CT scan shows him impression of the abdominal contents, she does not have a compartment syndrome at this time. The bleeding seems to have stabilized. 1 can see layering of the hematoma on the CT scan. No evidence of any fresh bleeding. PLAN: bleeding was recognized and the patient has been resuscitated. She is being seen in consultation with Nephrology. At the current time she is on pressors with adequate blood pressure. Will continue to follow with you, but does not require surgical intervention at this moment. If she does need a IVC filter, would recommend consult with Dr. Nair or Gerard as I do not place these.
[2018-01-14] MEDS: NA CHLORIDE 0.9% 250 ML IV SCH (00:02)
[2018-01-14 01:16] LABS: Protime INR 1.01
[2018-01-14] MEDS: D5W 1,000 ML with NA BICARB 8.4% 100 MEQ IV SCH ×6 (05:25→17:00)
[2018-01-14] MEDS: CEFEPIME/SWI 1gm 1 GM/10 ML SYR IV SCH ×2 (05:26→17:28)
[2018-01-14 05:57] LABS: Absolute Lymphocytes (CBC) 1.2 K/uL (0.7-4.9); Absolute Monocytes 1.7 K/uL (0.1-1.3); Absolute Neutrophil 11.2 K/uL (1.8-8.0); Basophils % 0.1 % (0-1.3); Hematocrit 22.6 % (36.0-45.0); Lymphocytes % 8.7 % (15.3-44.8); MCH 29.3 pg (27.0-35.0); MCV 84.6 fL (80-100); MPV 9.1 fL (7.6-11.3); RBC Red Blood Cell Count 2.67 M/uL (3.86-4.86)
[2018-01-14] MEDS: NA CHLORIDE 0.9% 1,000 ML IV SCH ×2 (06:05→23:02)
[2018-01-14 06:14] LABS: Albumin 2.2 g/dL (3.2-5.5); Phosphorus 3.8 mg/dL (2.5-4.3); Potassium 4.4 mEq/L (3.6-5.0)
[2018-01-14 06:18] LABS: Magnesium 1.4 mg/dL (1.8-2.5)
[2018-01-14] MEDS ORDERED: FUROSEMIDE 40 MG/4 ML VIAL IV ONE ×3 (06:43→15:54)
[2018-01-14] MEDS ORDERED: Magnesium Sulfate 2gm IVPB 2 G/50 ML BAG IV ONE (06:43)
[2018-01-14 06:48] LABS: Hematocrit 23.5 % (36.0-45.0)
[2018-01-14] MEDS: FAMOTIDINE 20 MG/2 ML VIAL IV SCH ×2 (08:28→20:30)
[2018-01-14] MEDS ORDERED: Magnesium Sulfate 2gm IVPB 2 G/50 ML BAG IV SCH (09:00)
--- NOTE | 2018-01-14 11:49 | P.PN ---
Date of Service: 01/14/18 S: The patient has no complaints, resting at the moment O: Vital signs stable, off Levophed, hemoglobin is holding up the moment A: Surgically stable for now P: Continue current therapy, does not require surgical intervention yet
[2018-01-14 12:11] LABS: Absolute Lymphocytes (CBC) 1.2 K/uL (0.7-4.9); Absolute Monocytes 1.5 K/uL (0.1-1.3); Absolute Neutrophil 10.8 K/uL (1.8-8.0); Basophils % 0.2 % (0-1.3); Eosinophils % 0.1 % (0-4.4); Hematocrit 22.1 % (36.0-45.0); Lymphocytes % 8.8 % (15.3-44.8); MCH 28.8 pg (27.0-35.0); MCV 85.9 fL (80-100); MPV 8.6 fL (7.6-11.3); Monocytes % 11.2 % (3.3-12.3); RBC Red Blood Cell Count 2.58 M/uL (3.86-4.86)
[2018-01-14 13:14] LABS: Urine White Blood Cell Casts OK
[2018-01-14 13:15] LABS: Blood Morphology Comment NOT SEEN (NOT SEEN); Platelet Estimate DECR
[2018-01-14] MEDS ORDERED: NA CHLORIDE 0.9% 250 ML ONE ×2 (13:44→15:25)
--- NOTE | 2018-01-14 14:15 | PN ---
Date of Progress Note: 01/14/2018 Subjective: The patient was seen this morning for followup. No new complaints or problems reported by nursing staff. The patient was sleeping this morning. Vital signs reviewed. Intake and output records reviewed. As of early this morning around 2:45 a.m. or so, we were able to discontinue her Levophed drip and she is able to maintain her adequate blood pressure. At the evening, I did discuss details with Dr. Guardado, e commerce architect and general surgeon, Dr. Briones. Physical Examination: HEENT: This morning, unremarkable. Lungs: Clear to auscultation. No rhonchi or rales. Heart: Sounds normal. Abdomen: Soft. Bowel sounds normal. No guarding, rigidity, tenderness. Abdomen appears distended. Left side of abdomen where she had large area of bruising and abdominal wall hematoma, the bruising part has shown significant improvement compared to last couple of days. Extremities: Edema of both lower extremities. SCD present over left leg. Laboratory Data: White count this morning 14.2, yesterday afternoon white count was 21.2. Hemoglobin this morning was 7.8, platelets 122. Repeat hemoglobin this morning was 8.1. A 7.8 hemoglobin was from central line and 8.1 hemoglobin was peripheral drop, bicarb 24, BUN 35, creatinine 1.92, glucose 123, magnesium 1.4. Impression: 1. Acute blood loss anemia. 2. Hematoma, abdominal wall, due to Lovenox. 3. Acute renal failure. 4. Hemorrhagic shock. 5. Hypomagnesemia. 6. Multiple sclerosis, end-stage. Plan: We will go ahead and follow up on blood work later this morning that I will do CBC instead of hemoglobin so we can follow up on platelet count along with a hemoglobin and if hemoglobin is less than 8, then she will receive 2 units of PRBC blood transfusion. Depending on the platelet count, we will decide if she needs any platelet transfusion or not. So far for this hospital admission, she has received 5 units of PRBC, 4 units of FFP and 1 unit of single donor platelet transfusion. No surgical intervention needed as per Dr. Briones, but we will continue to follow up with him. Continue to follow with e commerce architect for renal failure. We will replace magnesium per protocol. I will see her tomorrow for followup. LAUREN/MODL Voice ID: [id number] Report ID: [id number] JIE
[2018-01-15 00:53] LABS: Absolute Monocytes 1.2 K/uL (0.1-1.3); Absolute Neutrophil 10.8 K/uL (1.8-8.0); Basophils % 0.1 % (0-1.3); Eosinophils % 0.2 % (0-4.4); Hematocrit 29.6 % (36.0-45.0); Lymphocytes % 7.7 % (15.3-44.8); MCH 29.7 pg (27.0-35.0); MCV 86.9 fL (80-100); MPV 8.5 fL (7.6-11.3); Monocytes % 9.1 % (3.3-12.3); RBC Red Blood Cell Count 3.41 M/uL (3.86-4.86)
[2018-01-15] MEDS: D5W 1,000 ML with NA BICARB 8.4% 100 MEQ IV SCH ×2 (04:49)
[2018-01-15 05:30] LABS: Absolute Lymphocytes (CBC) 0.9 K/uL (0.7-4.9); Absolute Monocytes 1.1 K/uL (0.1-1.3); Eosinophils % 0.3 % (0-4.4); Hematocrit 28.7 % (36.0-45.0); MCH 30.3 pg (27.0-35.0); MCV 87.2 fL (80-100); MPV 8.7 fL (7.6-11.3); Monocytes % 9.8 % (3.3-12.3); RBC Red Blood Cell Count 3.29 M/uL (3.86-4.86)
[2018-01-15] MEDS: CEFEPIME/SWI 1gm 1 GM/10 ML SYR IV SCH ×2 (05:38→17:33)
[2018-01-15 05:47] LABS: Albumin 2.3 g/dL (3.2-5.5); Magnesium 2.5 mg/dL (1.8-2.5); Phosphorus 3.3 mg/dL (2.5-4.3); Potassium 3.5 mEq/L (3.6-5.0)
[2018-01-15] MEDS ORDERED: FAMOTIDINE 20 MG/2 ML VIAL IV ONE (10:00)
[2018-01-15 11:20] LABS: Hematocrit 29.5 % (36.0-45.0)
[2018-01-15] MEDS ORDERED: POTASSIUM CL SA 10 MEQ TAB PO ONE (17:00)
[2018-01-15] MEDS: VITAMIN D 5,000 UNIT CAP PO SCH (17:33)
[2018-01-15] MEDS: CALCITROL 0.25 MCG CAP PO SCH (17:37)
[2018-01-15 20:31] LABS: Hematocrit 28.6 % (36.0-45.0)
--- NOTE | 2018-01-15 21:30 | P.PN ---
Date of Service: 01/15/18 Vital Signs Temp Pulse Resp BP Pulse Ox 97.7 F 102 H 10 L 141/88 H 99 01/15/18 12:00 01/15/18 19:00 01/15/18 19:00 01/15/18 19:00 01/15/18 19:00 Medications Acetaminophen (Tylenol -Extra Strength) 500 mg PO Q6H PRN PRN Reason: [id number] Stop: 02/11/18 16:54 Calcitriol (Rocaltrol) 0.5 mcg PO DAILY [facility] Stop: 02/14/18 17:01 Last Admin: 01/15/18 17:37 Dose: 0.5 mcg Cholecalciferol (Vitamin D 5,000 Iu Cap) 5,000 unit PO DAILY [facility] Stop: 02/14/18 17:01 Last Admin: 01/15/18 17:33 Dose: 5,000 unit Famotidine (Pepcid) 20 mg IV DAILY [facility] Stop: 02/11/18 21:01 Cefepime HCl (Maxipime 1 Gm/10 Ml Swi Ivp) 1 gm in 10 mls @ 200 mls/hr IV Q12HR 6AM AND 6PM [facility] Stop: 02/12/18 06:01 Last Admin: 01/15/18 17:33 Dose: 10 mls Sodium Chloride (Sodium Chloride) 250 mls @ 0 mls/hr IV .Q0M [facility]ERICK Stop: 02/11/18 20:01 Last Admin: 01/14/18 00:02 Dose: 250 mls Sodium Chloride (Sodium Chloride) 250 mls @ 999 mls/hr IV Q30M PRN PRN Reason: HYPOTENSION Stop: 02/11/18 20:23 Last Admin: 01/13/18 05:30 Dose: 250 mls Ondansetron HCl (Zofran) 4 mg IV Q4H PRN PRN Reason: NAUSEA / VOMITING Sodium Chloride (Normal Saline Flush) 10 ml IV BID [facility] Stop: 02/11/18 21:01 Last Admin: 01/15/18 21:03 Dose: 10 ml Lab Results (last 24 hrs) 01/12/18 11:32: ABO/Rh A POSITIVE, Antibody Screen Negative, Crossmatch See Detail Microbiology Results 01/12/18 13:00 Blood - Blood Aerobic Blood Culture - Preliminary No growth in 24 hours. 01/12/18 13:00 Blood - Blood Anaerobic Blood Culture - Preliminary No growth in 24 hours. 01/12/18 13:15 Blood - Blood Aerobic Blood Culture - Preliminary No growth in 24 hours. 01/12/18 13:15 Blood - Blood Anaerobic Blood Culture - Preliminary No growth in 24 hours. Assessment/ Plan: Nephrology. Feeling better. Off pressors with BP improving. Improving urine output. CPS stable without CP or SOB. No acute events overnight. Vitals, medications, blood work and imaging reviewed in the chart. NAD. MMM. Neck supple. CTA. RRR. Left abd mass. No C/C. Hip & LE Edema 2+ . No rash. AA. Normal speech. Muscle atrophy and contracture. A/ MING may be Prerenal Azotemia vs ATN. Resolving oliguria. Cr 1.8 Proteinuria. Hyperkalemia/ Hypokalemia. Acidosis. Lactic Acidosis. Hemorrhagic shock with Left abdominal hematoma. Anemia due to blood loss. Hgb 10 Hypocalcemia. Hypomagnesemia. Hypoalbuminemia. RLE DVT. Multiple sclerosis. P/ Continue current POC and Medications. Discontinue IVF. Give IVF boluses as needed for hypotension. Give KCl 40meq X1 dose. Start Vitamin D. Advance diet as tolerated. No NSAIDs. AM labs. Daily weight. Greater 30min patient care.
--- NOTE | 2018-01-15 23:38 | PN ---
Date of Progress Note: 01/15/2018 Subjective: The patient was seen this morning for followup. She was lying in bed in ICU. Awake, al ert, answering questions. Denied any new complaints. Not in any respiratory distress. Intake and o utput records reviewed. Objective: Vital Signs: Reviewed. HEENT: Unremarkable. Lungs: Clear to auscultation. Heart: Heart sounds normal. Abdomen: Soft. Bowel sounds normal. No guarding, rigidity, or distention. Left-sided abdominal wa ll hematoma present. Bruising from abdominal wall is significantly better in last 2 days compared to before. Extremities: Leg edema remains unchanged. Laboratory Data: White count 11, hemoglobin 10, platelets 166. Sodium 139, potassium 3.5, chloride 103, bicarb 29, BUN 33, creatinine 1.88, glucose 107, magnesium 2.5. Impression: 1.Acute blood loss anemia. 2.Hematoma, abdominal wall. 3.Deep venous thrombosis, right leg. 4.Multiple sclerosis. 5.Hypokalemia. 6.Thrombocytopenia. Plan: We will go ahead and continue current antibiotics. Start the patient on liquid diet per order . We will monitor her in the ICU today. Renal function has shown minimal improvement today compared to yesterday. Depending on her condition, we will decide if she is stable enough for transfer by tomorrow from ICU to medical floor or not. Details and plan of treatme nt discussed with the patient. LAUREN/MODL Voice ID: [id number] Report ID: [id number]
[2018-01-16 05:17] LABS: Absolute Lymphocytes (CBC) 0.7 K/uL (0.7-4.9); Absolute Monocytes 0.9 K/uL (0.1-1.3); Absolute Neutrophil 7.5 K/uL (1.8-8.0); Basophils % 0.2 % (0-1.3); Eosinophils % 1.8 % (0-4.4); Hematocrit 29.9 % (36.0-45.0); Lymphocytes % 7.5 % (15.3-44.8); MCH 30.1 pg (27.0-35.0); MCV 89.9 fL (80-100); MPV 8.5 fL (7.6-11.3); Monocytes % 9.7 % (3.3-12.3); RBC Red Blood Cell Count 3.32 M/uL (3.86-4.86)
[2018-01-16 05:33] LABS: Albumin 2.2 g/dL (3.2-5.5); Bilirubin Total 0.8 mg/dL (0.3-1.2); Magnesium 2.2 mg/dL (1.8-2.5); Phosphorus 2.9 mg/dL (2.5-4.3); Protein, Total 4.7 g/dL (6.0-8.3); Uric Acid 6.7 mg/dL (2.6-8.0)
[2018-01-16] MEDS: CEFEPIME/SWI 1gm 1 GM/10 ML SYR IV SCH ×2 (05:55→17:18)
[2018-01-16 06:02] LABS: Urine Appearance HAZY; Urine Bilirubin NEGATIVE (NEG); Urine Blood 2+ (NEG); Urine Color YELLOW; Urine Glucose NEGATIVE (NEG); Urine Protein 1+ (NEG); Urine Specific Gravity 1.015 (1.005-1.030); Urine Urobilinogen 0.2 mg/dL (0.2-1.0)
[2018-01-16 06:03] LABS: UR CREAT 35.5 mg/dL (20-320)
[2018-01-16 06:04] LABS: Urine Bacteria <20 /HPF (<20); Urine Culture Reflex Order REFLEXED; Urine RBC <5 /HPF (NONE SEEN)
[2018-01-16 06:10] LABS: UR CREAT 34.4 mg/dL (20-320); UR MICROALBUMIN 2.4 mg/dL (< 1.9)
[2018-01-16] MEDS: FAMOTIDINE 20 MG/2 ML VIAL IV SCH (11:10)
[2018-01-16] MEDS: CALCITROL 0.25 MCG CAP PO SCH (11:10)
[2018-01-16] MEDS: VITAMIN D 5,000 UNIT CAP PO SCH (11:10)
--- NOTE | 2018-01-16 14:43 | EKG ---
Test Date: 2018-01-12 Test Time: 19:53:42 Brush Loader And Handle Attacher: RT MEASUREMENT RESULTS: Intervals: Rate: 127 AR: 142 QRSD: 64 QT: 318 QTc: 462 [place]: P: 76 AR: 142 QRS: 45 T: 25 INTERPRETIVE STATEMENTS: Sinus tachycardia Nonspecific ST abnormality Abnormal ECG Compared to ECG 01/12/2018 11:31:29 ST (T wave) deviation now present Fusion complex(es) no longer present Wide-QRS tachycardia no longer present Right bundle-branch block no longer present Myocardial infarct finding no longer present Electronically Signed On 01-16-18 14:40:14 CDT by Mundo Johnson
--- NOTE | 2018-01-16 22:21 | P.PN ---
Date of Service: 01/16/18 Vital Signs Temp Pulse Resp BP Pulse Ox 98.9 F 110 H 13 149/73 H 98 01/16/18 16:00 01/16/18 19:00 01/16/18 19:00 01/16/18 19:00 01/15/18 23:00 Medications Acetaminophen (Tylenol -Extra Strength) 500 mg PO Q6H PRN PRN Reason: [id number] Stop: 02/11/18 16:54 Calcitriol (Rocaltrol) 0.5 mcg PO DAILY [facility] Stop: 02/14/18 17:01 Last Admin: 01/16/18 11:10 Dose: 0.5 mcg Cholecalciferol (Vitamin D 5,000 Iu Cap) 5,000 unit PO DAILY [facility] Stop: 02/14/18 17:01 Last Admin: 01/16/18 11:10 Dose: 5,000 unit Famotidine (Pepcid) 20 mg IV DAILY [facility] Stop: 02/11/18 21:01 Last Admin: 01/16/18 11:10 Dose: 20 mg Cefepime HCl (Maxipime 1 Gm/10 Ml Swi Ivp) 1 gm in 10 mls @ 200 mls/hr IV Q12HR 6AM AND 6PM [facility] Stop: 02/12/18 06:01 Last Admin: 01/16/18 17:18 Dose: 10 mls Sodium Chloride (Sodium Chloride) 250 mls @ 0 mls/hr IV .Q0M [facility] Stop: 02/11/18 20:01 Last Admin: 01/14/18 00:02 Dose: 250 mls Sodium Chloride (Sodium Chloride) 250 mls @ 999 mls/hr IV Q30M PRN PRN Reason: HYPOTENSION Stop: 02/11/18 20:23 Last Admin: 01/13/18 05:30 Dose: 250 mls Ondansetron HCl (Zofran) 4 mg IV Q4H PRN PRN Reason: NAUSEA / VOMITING Sodium Chloride (Normal Saline Flush) 10 ml IV BID [facility] Stop: 02/11/18 21:01 Last Admin: 01/16/18 11:10 Dose: 10 ml Microbiology Results 01/12/18 13:00 Blood - Blood Aerobic Blood Culture - Preliminary No growth in 24 hours. 01/12/18 13:00 Blood - Blood Anaerobic Blood Culture - Preliminary No growth in 24 hours. 01/12/18 13:15 Blood - Blood Aerobic Blood Culture - Preliminary No growth in 24 hours. 01/12/18 13:15 Blood - Blood Anaerobic Blood Culture - Preliminary No growth in 24 hours. Assessment/ Plan: Nephrology. Doing well. CPS stable without CP or SOB. No acute events overnight. Tolerating advanced diet. Vitals, medications, blood work and imaging reviewed in the chart. NAD. MMM. Neck supple. CTA. RRR. Left abd mass. No C/C. Hip & LE Edema 2+ . No rash. AA. Normal speech. Muscle atrophy and contracture. A/ MING may be Prerenal Azotemia vs ATN. Proteinuria. Hyperkalemia/ Hypokalemia. Acidosis. Lactic Acidosis. Hemorrhagic shock with Left abdominal wall hematoma. Anemia due to blood loss. Hypocalcemia. Hypomagnesemia. Hypoalbuminemia. RLE DVT. Multiple sclerosis. P/ Continue current POC and Medications. Give IVF boluses as needed for hypotension. Advance diet as tolerated. No NSAIDs. AM labs. Daily weight.
--- NOTE | 2018-01-17 01:46 | PN ---
Date of Progress Note: 01/16/2018 Subjective: The patient was seen this morning for followup. No new complaints or problems reported by the patient. Lying in bed, not in distress. She was in ICU. Intake and output records reviewed. Objective: Vital signs: Reviewed. Overall, she is doing much better. HEENT: Unremarkable. Lungs: Clear to auscultation. No rhonchi. No rales. Heart: Heart sounds normal. Abdomen: Soft, bowel sounds normal. No guarding, rigidity, tenderness, left abdominal wall bruising present but overall stable since yesterday and overall much better compared to time of admission with improvement in hematoma and bruising abdominal wall. Extremity: Bilateral leg edema present, but better today than yesterday. Laboratory Data: White count 9.3, hemoglobin 10, platelets 171, sodium 141, potassium 4, chloride 10 3, bicarb 32, BUN 31, creatinine 1.55, glucose 97. Impression: 1.Acute blood loss anemia. 2.Abdominal wall hematoma secondary to Lovenox. 3.Deep venous thrombosis, right leg. 4.Acute blood loss anemia. 5.Acute renal failure. Plan: The patient's condition overall is stable. We will consider to transfer her out of ICU to [facility]. I did talk to Dr. Nair this evening and requested him to consider IVC filter placement a s the patient is not a candidate for any anticoagulation therapy now with this bleeding complication, so we will plan to do this procedure on of this week. We will s ee her tomorrow for followup. LAUREN/MODL Voice ID: [id number] Report ID: [id number]
[2018-01-17] MEDS: CEFEPIME/SWI 1gm 1 GM/10 ML SYR IV SCH ×2 (05:55→18:02)
[2018-01-17 08:07] LABS: Absolute Lymphocytes (CBC) 0.6 K/uL (0.7-4.9); Absolute Monocytes 1.2 K/uL (0.1-1.3); Absolute Neutrophil 7.5 K/uL (1.8-8.0); Basophils % 0.3 % (0-1.3); Eosinophils % 4.3 % (0-4.4); Hematocrit 32.2 % (36.0-45.0); Lymphocytes % 6.1 % (15.3-44.8); MCH 30.3 pg (27.0-35.0); MPV 8.2 fL (7.6-11.3); Monocytes % 12.7 % (3.3-12.3)
[2018-01-17 08:08] LABS: Protime INR 0.97
[2018-01-17 08:14] LABS: Potassium 3.5 mEq/L (3.6-5.0)
[2018-01-17] MEDS: VITAMIN D 5,000 UNIT CAP PO SCH (08:42)
[2018-01-17] MEDS: FAMOTIDINE 20 MG/2 ML VIAL IV SCH (08:42)
[2018-01-17] MEDS: CALCITROL 0.25 MCG CAP PO SCH (08:42)
[2018-01-17 09:26] LABS: Anisocytosis 1+; Blood Morphology Comment NOT SEEN (NOT SEEN); Macrocytosis 1+; Platelet Estimate ADEQ
[2018-01-17] MEDS ORDERED: KCL 20 MEQ/100 mL IVPB 20 MEQ/100 ML BAG IV SCH (10:00)
--- NOTE | 2018-01-17 13:25 | CON ---
Date of Consultation: 01/17/2018 Reason For Consultation: The patient needs a [place] filter. History Of Present Illness: The patient is a 72-year-old female, who is a bedbound patient would not like [facility], has end-stage multiple sclerosis, and she was diagnosed with DVT. She was starte d on Eliquis; however, she had another DVT while on Eliquis and she was started on Lovenox, but she d eveloped a large abdominal wall hematoma requiring blood transfusion, and therefore she was brought t o the hospital and she is in the ICU. The bleeding has stopped. She is off blood thinners and she n eeds a filter because of her DVTs. She is awake, alert, in no respiratory distress. No chest pain. No fever or chills. Review of Systems: Otherwise unremarkable. Past Medical History: Significant for multiple sclerosis, hypertension, DVT, osteoporosis. Past Surgical History: Negative. Allergies: TYLENOL AND ASPIRIN. Social History: She does not smoke or drink. Family History: Noncontributory. Physical Examination: Vital Signs: Currently, her vital signs are stable. She is afebrile. General: She is awake, alert, and oriented x3. Head and Neck: Cranial nerves 2 through 12 are grossly within normal limits. No neck masses. No JV D. Throat clear. Neck is supple. She does have a right subclavian central line. Chest: Clear. Heart: S1, S2. Abdomen: Soft. Extremities: Contracted. Neuro: Nonfocal. Laboratory Data: Reviewed. H and H 10.6 and 32.2, platelets are 194. INR is 0.97. Chemistry revie wed. Assessment: Deep venous thrombosis, high risk of bleeding. Recommendations: We will attempt to put a right IJ Thornton filter as the patient cannot be antico agulated. The patient understands the risks, benefits, and alternatives and agrees to procedure. /MODL Voice ID: [id number] Report ID: [id number]
[2018-01-17] MEDS ORDERED: POTASSIUM CL SA 10 MEQ TAB PO ONE (13:30)
--- NOTE | 2018-01-17 17:10 | PN ---
Date of Progress Note: 01/17/2018 Subjective: The patient is doing okay. She is eating her lunch. She has been moved to step-down. Her blood pressures have remained stable. Physical Examination: Vital Signs: Showing temperature of 97.2, pulse rate of 94, respiratory rate of 20, blood pressure o f 130/67. General: She appears in no acute distress. Left-sided weakness. Right hand no focal weakness. Abdomen: Soft with a hematoma, which seems to be resolving. Extremities: Warm to touch and edema noted in bilateral lower extremities, worse on the right side. Laboratory Data: At this time showing hemoglobin stable at 10.6, hematocrit of 32.2, and platelet co unt of 194. BMP results are showing creatinine improving to 1.2, BUN of 27. Sodium of 140 and potas sium of 3.5. Impression: 1.Acute renal insufficiency secondary to acute tubular necrosis from hemorrhagic shock, currently wi th improving renal function, nonoliguric. 2.Hypokalemia, need to be replaced gently. 3.Multiple sclerosis. 4.Abdominal wall hematoma secondary to complication of Lovenox therapy, treated conservatively with RBCs, FFPs, and reversal of anticoagulation. 5.Right lower extremity deep vein thrombosis and history of recurrent deep vein thromboses. The [facility] ient is planned for IVC filter placement. 6.Hypoalbuminemia. Plan: The patient is overall doing okay at this time. Do IV fluid boluses as tolerated. Gentle rep lacement of potassium. I agree with transfer to regular floor. Avoid hypotension and nephrotoxins. Continue all other medications. No further anticoagulation for this patient. VV/MODL Voice ID: [id number] Report ID: [id number]
[2018-01-17] MEDS: CEFTAZIDIME 1 GM in NA CHLORIDE 0.9% 100 ML IV SCH (19:19)
[2018-01-17] MEDS ORDERED: VANCOMYCIN/NS 1 gm 1 GM/250 ML BAG IVPB SCH (20:00)
--- NOTE | 2018-01-18 00:40 | PN ---
Date of Progress Note: 01/17/2018 Subjective: The patient was seen this morning for followup. No new complaints or problems reported by the patient. Lying in bed, not in distress. Objective: Vital Signs: Reviewed. HEENT: Unremarkable. Lungs: Clear to auscultation. Heart: Heart sounds normal. Abdomen: Soft. Bowel sounds normal. No guarding, rigidity, or tenderness. Bruising of left abdomi nal wall with hematoma of abdominal wall noted. Extremities: Leg edema unchanged. Laboratory Data: White count 9.8, hemoglobin 10.6, platelets 194. Sodium 140, potassium 3.5, chlori de 103, bicarb 31, BUN 27, creatinine 1.22, glucose 105. Impression: 1.Acute blood loss anemia. 2.Urinary tract infection from organisms Pseudomonas and Enterococcus faecalis. 3.Hypokalemia. 4.Anemia due to acute blood loss. 5.DVT, right leg. 6.Multiple sclerosis. Plan: We will go ahead and discontinue cefepime. Start the patient on ceftazidime for Pseudomonas a nd vancomycin for Enterococcus faecalis. The patient is stable for transfer from ICU to [facility]. See copy of transfer order for more details. We will consult Dr. Nair for IVC filter placement. Details were discussed with the patient this morning regarding reasoning for IVC filter and she is agreeable for this procedure. Dr. Nair will do this procedure tomorrow. We will keep her n.p.o. after midnight. Start IV fluid at midnight when she is n.p.o. and I will see her tomorrow for followup. LAUREN/MODL Voice ID: [id number] Report ID: [id number]
[2018-01-18] MEDS ORDERED: CEFTAZIDIME 1 GM VIAL IV SCH (01:00)
[2018-01-18] MEDS: D5 0.9 NS 1,000 ML IV SCH ×2 (03:19→20:58)
[2018-01-18] MEDS: CEFTAZIDIME 1 GM in NA CHLORIDE 0.9% 100 ML IV SCH ×3 (03:19→17:53)
[2018-01-18 06:11] LABS: Absolute Lymphocytes (CBC) 0.6 K/uL (0.7-4.9); Absolute Monocytes 1.3 K/uL (0.1-1.3); Absolute Neutrophil 6.8 K/uL (1.8-8.0); Basophils % 0.3 % (0-1.3); Eosinophils % 5.2 % (0-4.4); Hematocrit 28.8 % (36.0-45.0); MCH 31.2 pg (27.0-35.0); MCV 92.3 fL (80-100); MPV 8.1 fL (7.6-11.3); Monocytes % 14.3 % (3.3-12.3); RBC Red Blood Cell Count 3.12 M/uL (3.86-4.86)
[2018-01-18 06:32] LABS: Magnesium 1.9 mg/dL (1.8-2.5); Potassium 4.5 mEq/L (3.6-5.0)
[2018-01-18 06:40] VITALS: BMI 28.5
[2018-01-18] MEDS: FAMOTIDINE 20 MG/2 ML VIAL IV SCH (08:27)
[2018-01-18] MEDS ORDERED: Ringers Lactate 1,000 ML IV ONE (09:14)
[2018-01-18] MEDS ORDERED: HEPARIN 5000 UNIT/ML 1 ML VIAL ONE (09:25)
[2018-01-18] MEDS: LIDOCAINE 1% 20 ML MDV ONE ×2 (09:25→10:23)
[2018-01-18] MEDS ORDERED: NA CHLORIDE 0.9% 50 ML ONE (09:25)
[2018-01-18] MEDS ORDERED: PROPOFOL 200 MG/20 ML VIAL IV ONE (09:39)
[2018-01-18] MEDS ORDERED: MIDAZOLAM HCL 2 MG/2 ML INJ ONE (09:40)
[2018-01-18] MEDS ORDERED: LIDOCAINE 2% MPF 5 ML VIAL ONE (09:40)
[2018-01-18] MEDS ORDERED: FENTANYL CITR 100 MCG/2 ML ONE (09:41)
[2018-01-18] MEDS ORDERED: ONDANSETRON HCL 40 MG/20 ML VIAL ONE (09:41)
[2018-01-18] MEDS ORDERED: Phenylephrine HCl 10 MG/ML 1 ML VIAL ONE (10:26)
--- NOTE | 2018-01-18 10:40 | P.OP ---
Preoperative diagnosis: DVT, Risk of bleeding Postoperative diagnosis: same Primary procedure: Placement of [place] Filter, Fluoroscopy Anesthesia: Gen Estimated blood loss: min Specimen: none Findings: Normal anatomy Transferred to: Recovery Room Condition: Good
--- NOTE | 2018-01-18 11:23 | RAD REPORT ---
EXAM DESCRIPTION: RAD - Fluoroscopy <1 Hour - 01/18/2018 10:50 am CLINICAL HISTORY: IVC filter placement. COMPARISON: None. FINDINGS: Fluoroscopic imaging is submitted from placement of an IVC filter. Details of the procedu re not available. Fluoro time 1.2 minutes.
--- NOTE | 2018-01-18 11:25 | OP ---
Date of Procedure: 01/18/2018 Surgeon: Jose Nair MD Preoperative Diagnosis: Deep venous thrombosis and risk of bleeding. Postoperative Diagnosis: Deep venous thrombosis and risk of bleeding. Procedure Performed: Right IJ [place] filter placement and interpretation of intraoperative fluor oscopy. Estimated Blood Loss: Minimal. Specimen: None. Findings: Normal anatomy. Anesthesia: General. Complications: None. Disposition: The patient tolerated the procedure in stable condition and taken to Recovery in good g eneral condition. Operative Note: The patient was brought to the OR and placed in the supine position. General anesth esia was begun. The patient was prepped and draped in usual sterile fashion. Lidocaine 1% was infil trated locally. An 18-gauge needle was used to access the right IJ vein. Guidewire was passed. Pos ition was confirmed with fluoroscopy. Then, Seldinger technique used, vein dilated, and then sheath and introducer dilator placed at the L3-L4 region above the bifurcation, and then under fluoroscopy, [place] filter deployed with complete opening and no movement of the filter. Subsequently, introd ucer removed, pressure applied, and 3-0 chromic was used to close the wound. Sterile dressing was ap plied. The patient tolerated the procedure in stable condition and taken to Recovery in good general condition. Chest x-ray has b een ordered. /MODL Voice ID: [id number] Report ID: [id number]
--- NOTE | 2018-01-18 11:46 | RAD REPORT ---
EXAM DESCRIPTION: RAD - Chest Single View - 01/18/2018 11:36 am CLINICAL HISTORY: Status post Dakotah filter placement. COMPARISON: 01/12/2018 FINDINGS: Portable technique limits examination quality. Mild interstitial lung opacities bilaterally, greater on the right, may represent mild interstitial p ulmonary edema. A small amount of pleural fluid is also likely present. No pneumothorax is present. T he heart is mildly prominent size. Right-sided venous catheter has its tip in the SVC. IMPRESSION: Mild pulmonary edema suspected.
[2018-01-18] MEDS: METOPROLOL XL 25 MG TAB PO SCH (12:02)
[2018-01-18] MEDS: CALCITROL 0.25 MCG CAP PO SCH (12:03)
[2018-01-18] MEDS: VITAMIN D 5,000 UNIT CAP PO SCH (12:03)
[2018-01-18] MEDS: VANCOMYCIN 1.25 GM in NA CHLORIDE 0.9% 250 ML IV SCH (20:58)
--- NOTE | 2018-01-18 21:09 | P.PN ---
Date of Service: 01/18/18 Vital Signs Temp Pulse Resp BP Pulse Ox 98.8 F 94 H 20 177/86 H 98 01/18/18 16:38 01/18/18 16:38 01/18/18 16:38 01/18/18 16:38 01/18/18 16:38 Medications Acetaminophen (Tylenol -Extra Strength) 500 mg PO Q6H PRN PRN Reason: [id number] Stop: 02/11/18 16:54 Calcitriol (Rocaltrol) 0.5 mcg PO DAILY [facility] Stop: 02/14/18 17:01 Last Admin: 01/18/18 12:03 Dose: 0.5 mcg Cholecalciferol (Vitamin D 5,000 Iu Cap) 5,000 unit PO DAILY [facility] Stop: 02/14/18 17:01 Last Admin: 01/18/18 12:03 Dose: 5,000 unit Famotidine (Pepcid) 20 mg IV DAILY [facility] Stop: 02/11/18 21:01 Last Admin: 01/18/18 08:27 Dose: 20 mg Sodium Chloride (Sodium Chloride) 250 mls @ 0 mls/hr IV .Q0M [facility] Stop: 02/11/18 20:01 Last Admin: 01/14/18 00:02 Dose: 250 mls Sodium Chloride (Sodium Chloride) 250 mls @ 999 mls/hr IV Q30M PRN PRN Reason: HYPOTENSION Stop: 02/11/18 20:23 Last Admin: 01/13/18 05:30 Dose: 250 mls Dextrose/Sodium Chloride (D5w Ns 1-Liter Bag) 1,000 mls @ 50 mls/hr IV .Q20H [facility] Stop: 02/17/18 00:01 Last Admin: 01/18/18 20:58 Dose: 1,000 mls Ceftazidime 1 gm/ Sodium (Chloride) 100 mls @ 200 mls/hr IV Q8HR [facility] Stop: 02/16/18 20:01 Last Admin: 01/18/18 17:53 Dose: 100 mls Vancomycin HCl 1.25 gm/ Sodium (Chloride) 250 mls @ 166.667 mls/hr IV Q24H [facility] ; Protocol Stop: 02/17/18 20:01 Last Admin: 01/18/18 20:58 Dose: 250 mls Metoprolol Succinate (Toprol Xl) 25 mg PO [id number] [facility] Stop: 02/17/18 09:01 Last Admin: 01/18/18 12:02 Dose: 25 mg Ondansetron HCl (Zofran) 4 mg IV Q4H PRN PRN Reason: NAUSEA / VOMITING Sodium Chloride (Normal Saline Flush) 10 ml IV BID [facility] Stop: 02/11/18 21:01 Last Admin: 01/18/18 20:59 Dose: 10 ml Microbiology Results 01/12/18 13:00 Blood - Blood Aerobic Blood Culture - Final No growth in 5 days. 01/12/18 13:00 Blood - Blood Anaerobic Blood Culture - Final No growth in 5 days. 01/12/18 13:15 Blood - Blood Aerobic Blood Culture - Final No growth in 5 days. 01/12/18 13:15 Blood - Blood Anaerobic Blood Culture - Final No growth in 5 days. Assessment/ Plan: Nephrology. Doing well. CPS stable without CP or SOB. No acute events overnight. Tolerating advanced diet. Vitals, medications, blood work and imaging reviewed in the chart. NAD. MMM. Neck supple. CTA. RRR. Left abd mass. No C/C. Hip & LE Edema 1+ . No rash. AA. Normal speech. Muscle atrophy and contracture. EXAM DESCRIPTION: RAD - Chest Single View - 01/18/2018 11:36 am CLINICAL HISTORY: Status post [place] filter placement. COMPARISON: 01/12/2018 FINDINGS: Portable technique limits examination quality. Mild interstitial lung opacities bilaterally, greater on the right, may represent mild interstitial pulmonary edema. A small amount of pleural fluid is also likely present. No pneumothorax is present. The heart is mildly prominent size. Right-sided venous catheter has its tip in the SVC. IMPRESSION: Mild pulmonary edema suspected. A/ MING may be Prerenal Azotemia vs ATN. Proteinuria. HTN/ Tachycardia. Hyperkalemia/ Hypokalemia. Acidosis. Lactic Acidosis. Hemorrhagic shock with Left abdominal wall hematoma. Anemia due to blood loss. Hypocalcemia. Hypomagnesemia. Hypoalbuminemia. RLE DVT. Multiple sclerosis. P/ Continue current POC and Medications. Start Metoprolol 25mg BID for HTN/ tachycardia. Give IVF boluses as needed for hypotension. Advance diet as tolerated. No NSAIDs. AM labs. Daily weight.
--- NOTE | 2018-01-18 23:32 | PN ---
Date of Progress Note: 01/18/2018 Subjective: The patient was seen this morning for followup. She was still in ICU as overflow patien t. Denied any complaints. No new problems reported by nursing staff. Objective: Vital Signs: Reviewed. Intake and output records reviewed. HEENT: Unremarkable. Lungs: Clear to auscultation. Heart: Sounds normal. Abdomen: Soft, bowel sounds normal. No guarding, rigidity, tenderness, distention. Extremities: Leg edema present, unchanged. Laboratory Data: White count 9.2, hemoglobin 9.7, platelets 186. Sodium 140, potassium 4.5, chlorid e 106, bicarb 30, BUN 24, creatinine 1.06, glucose 102, magnesium 1.1. Impression: 1.Deep venous thrombosis, right leg, recurrent. 2.Multiple sclerosis, advanced. 3.Acute blood loss anemia. 4.Hematoma, abdominal wall. 5.Acute kidney injury, improved. 6.Urinary tract infection. Plan: We will go ahead and continue current antibiotics. The patient will have procedure done today with Dr. Nair for IVC filter placement. Use of anticoagulation medication is contraindicated now w ith her this hospital admission and presentation with hemorrhagic shock. The patient is at very high risk of having recurrent DVT. So far she has not had a pulmonary embolism, but considering her high risk of DVT, we are afraid that she may actually end up having such life-threatening complication. So, IVC filter was recommended for prevention of sudden from pulmonary embolism. I will see her tomorrow for followup. We will c ontinue current antibiotics. LAUREN/MODL Voice ID: [id number] Report ID: [id number]
[2018-01-19] MEDS: CEFTAZIDIME 1 GM in NA CHLORIDE 0.9% 100 ML IV SCH ×3 (00:31→16:40)
[2018-01-19 05:18] LABS: Absolute Lymphocytes (CBC) 0.6 K/uL (0.7-4.9); Absolute Monocytes 1.4 K/uL (0.1-1.3); Basophils % 0.3 % (0-1.3); Eosinophils % 5.4 % (0-4.4); Hematocrit 28.5 % (36.0-45.0); Lymphocytes % 6.2 % (15.3-44.8); MCH 31.4 pg (27.0-35.0); MCV 94.4 fL (80-100); MPV 8.1 fL (7.6-11.3); RBC Red Blood Cell Count 3.02 M/uL (3.86-4.86)
[2018-01-19 05:20] LABS: Monocytes % 15.1 % (3.3-12.3)
[2018-01-19 05:23] LABS: Magnesium 1.6 mg/dL (1.8-2.5); Potassium 4.5 mEq/L (3.6-5.0)
[2018-01-19] MEDS: METOPROLOL XL 25 MG TAB PO SCH (05:37)
[2018-01-19] MEDS: FAMOTIDINE 20 MG/2 ML VIAL IV SCH (09:13)
[2018-01-19] MEDS: VITAMIN D 5,000 UNIT CAP PO SCH (09:14)
[2018-01-19] MEDS: CALCITROL 0.25 MCG CAP PO SCH (09:14)
[2018-01-19] MEDS: D5 0.9 NS 1,000 ML IV SCH ×2 (16:00→21:01)
--- NOTE | 2018-01-19 17:14 | PN ---
Date of Progress Note: 01/19/2018 Subjective: The patient was seen this morning for followup. No new complaints or problems reported by patient. Lying in bed, not in any distress. Objective: Vital Signs: Reviewed. HEENT: Unremarkable. Lungs: Clear to auscultation. Heart: Heart sounds normal. Abdomen: Soft, bowel sounds normal. No guarding, rigidity. Presence of bruising on the left side o f abdomen unchanged from yesterday with some hematoma of abdominal wall unchanged from yesterday. Extremities: Leg edema unchanged. Laboratory Data: White count 9.6, hemoglobin 9.5, platelets 180. Sodium 141, potassium 4.5, chlorid e 110, bicarb 27, BUN 23, creatinine 1.06, glucose 104, magnesium 1.6. Impression: 1.Urinary tract infection. 2.Acute blood loss anemia. 3.Abdominal wall hematoma. 4.Multiple sclerosis. 5.Hypomagnesemia. 6.Hypertension. Plan: We will go ahead and continue current medications, which are current antibiotics. The patient is tolerating diet very well. Hemoglobin is stable from yesterday, no need for any blood transfusio n. We will monitor her over the weekend, and possible discharge to go to intermediate on Monday. I will see her tomorrow for followup. We will initiate antihypertensive therapy for her considering her blood pressure readings. The patient had IVC filter placement yesterday. LAUREN/MODL Voice ID: [id number] Report ID: [id number]
[2018-01-19] MEDS: VANCOMYCIN 1.25 GM in NA CHLORIDE 0.9% 250 ML IV SCH (20:00)
[2018-01-20] MEDS: CEFTAZIDIME 1 GM in NA CHLORIDE 0.9% 100 ML IV SCH ×3 (00:57→16:58)
[2018-01-20] MEDS: METOPROLOL XL 25 MG TAB PO SCH (05:08)
[2018-01-20] MEDS ORDERED: MAGNESIUM SULFATE 1 gm IVPB 1 GM/100 ML BAG IV ONE (09:15)
[2018-01-20] MEDS: FAMOTIDINE 20 MG/2 ML VIAL IV SCH (09:27)
[2018-01-20] MEDS: VITAMIN D 5,000 UNIT CAP PO SCH (09:27)
[2018-01-20] MEDS: CALCITROL 0.25 MCG CAP PO SCH (09:27)
--- NOTE | 2018-01-20 14:37 | PN ---
Date of Progress Note: 01/20/2018 Subjective: The patient was seen this morning for followup. She was lying in bed, not in distress. No new complaints or problems reported by her. Objective: Vital Signs: Reviewed. Intake and output records reviewed. HEENT: Unremarkable. Lungs: Clear to auscultation. Heart: Sounds normal. Abdomen: Soft, bowel sounds normal. No guarding, rigidity, tenderness, or distention. Extremities: Leg edema remains unchanged. Laboratory Data: There was no new blood work done today. Impression: 1.Urinary tract infection. 2.Acute blood loss anemia. 3.Hematoma, abdominal wall. 4.Multiple sclerosis. Plan: We will go ahead and do blood work tomorrow morning. Discontinue IV fluid. We will go ahead and plan to remove Dupere catheter today or tomorrow. Repeat blood work tomorrow morning, and I will see her tomorrow for followup. LAUREN/MODL Voice ID: [id number] Report ID: [id number]
--- NOTE | 2018-01-20 17:28 | PN ---
Date of Progress Note: 01/20/2018 Subjective: The patient is seen at bedside. No overnight events reported. The patient was resting comfortably, but when awakened, she stated that she felt well. Denies any fevers, chills, chest pain , shortness of breath, nausea, vomiting, or diarrhea. Objective: Vital Signs: Blood pressure is 138/73, pulse 93, temperature 98.2, blood pressure trend has been in the 160s to 130s. General: No acute distress. Heart: Regular rhythm. No murmurs, gallops. Lungs: Poor effort. Grossly clear. Abdomen: Distended, soft. Ecchymotic area noted predominantly in the left lower quadrant of the abd ominal wall. Extremities: Trace edema. Bilateral upper extremities are contracted. The patient does have a triple-lumen catheter on the right side of the chest. Dupree catheter draining clear yellow urine. Laboratory Data: CBC reviewed, stable. Serum chemistry sodium 141, potassium 4.5, chloride 110, CO2 27, BUN 23, creatinine 1.06, calcium 8, magnesium 1.6. Microbiology data had showed E. faecalis as well as Pseudomonas in the prior urine cultures. Current Medications: Reviewed. The patient continues on Fortaz 1 g IV q.8h, vitamin D 5000 daily. Magnesium was repleted today for 1 g. The patient received vancomycin every 36 hours. Impression: 1.Acute kidney injury on chronic kidney disease likely from acute tubular necrosis in the setting of initial blood loss anemia as well as possible septic contribution. 2.Urinary tract infection. 3.Acute blood loss anemia. Plan: Continue current medications. Continue IV fluid boluses for hypotension. Avoid all NSAIDs. Avoid contrast. Monitor lytes and H and H. SE/MODL Voice ID: [id number] Report ID: [id number]
[2018-01-20] MEDS ORDERED: VANCOMYCIN 1.25 GM in NA CHLORIDE 0.9% 250 ML IV SCH (21:00)
[2018-01-21] MEDS: CEFTAZIDIME 1 GM in NA CHLORIDE 0.9% 100 ML IV SCH ×3 (00:54→17:05)
[2018-01-21 05:56] LABS: Absolute Lymphocytes (CBC) 0.7 K/uL (0.7-4.9); Absolute Monocytes 1.3 K/uL (0.1-1.3); Absolute Neutrophil 5.6 K/uL (1.8-8.0); Basophils % 0.4 % (0-1.3); Eosinophils % 5.5 % (0-4.4); Hematocrit 31.1 % (36.0-45.0); Lymphocytes % 8.3 % (15.3-44.8); MCH 31.4 pg (27.0-35.0); MCV 94.4 fL (80-100); MPV 7.8 fL (7.6-11.3); Monocytes % 16.3 % (3.3-12.3)
[2018-01-21 06:10] LABS: Magnesium 1.7 mg/dL (1.8-2.5); Potassium 3.9 mEq/L (3.6-5.0)
[2018-01-21] MEDS: METOPROLOL XL 25 MG TAB PO SCH (06:58)
[2018-01-21 07:00] LABS: Blood Morphology Comment NOT SEEN (NOT SEEN); Platelet Estimate ADEQ
[2018-01-21] MEDS ORDERED: POTASSIUM 25 MEQ EFFERV TAB PO ONE (07:00)
[2018-01-21] MEDS ORDERED: MAGNESIUM SULFATE 1 gm IVPB 1 GM/100 ML BAG IV ONE (08:00)
[2018-01-21] MEDS: CALCITROL 0.25 MCG CAP PO SCH (09:15)
[2018-01-21] MEDS: VITAMIN D 5,000 UNIT CAP PO SCH (09:15)
[2018-01-21] MEDS: FAMOTIDINE 20 MG/2 ML VIAL IV SCH (09:34)
--- NOTE | 2018-01-21 11:50 | PN ---
Date of Progress Note: 01/21/2018 Subjective: The patient was seen this morning for followup. Lying in bed, not in distress. No new complaints or problems reported by patient. Objective: HEENT: Unremarkable. Lungs: Clear to auscultation. Heart: Heart sounds normal. Abdomen: Soft. Bowel sounds normal. No guarding, rigidity, tenderness, or distention. Extremities: Leg edema present, unchanged. Laboratory Data: White count 8.1, hemoglobin 10.4, platelets 189. Sodium 142, potassium 3.9, chlori de 110, bicarb 25, BUN 17, creatinine 0.76, glucose 90, magnesium 1.7. Impression: 1.Hypomagnesemia. 2.Anemia due to acute blood loss. 3.Abdominal wall hematoma. 4.Urinary tract infection. 5.Multiple sclerosis. Plan: We will go ahead and remove Dupree catheter. Continue current antibiotics. I will see her jc orrow for followup. Possible discharge to go to half-way in the next day or 2 days. LAUREN/MODL Voice ID: [id number] Report ID: [id number]
[2018-01-22] MEDS: CEFTAZIDIME 1 GM in NA CHLORIDE 0.9% 100 ML IV SCH ×3 (00:13→16:58)
[2018-01-22 05:30] LABS: Potassium 3.9 mEq/L (3.6-5.0)
[2018-01-22] MEDS ORDERED: POTASSIUM 25 MEQ EFFERV TAB PO ONE (06:00)
[2018-01-22] MEDS: METOPROLOL XL 25 MG TAB PO SCH (06:35)
[2018-01-22] MEDS: METOPROLOL TAR 25 MG TAB PO SCH ×2 (09:22→20:11)
[2018-01-22] MEDS: CALCITROL 0.25 MCG CAP PO SCH (09:22)
[2018-01-22] MEDS: VITAMIN D 5,000 UNIT CAP PO SCH (09:22)
[2018-01-22] MEDS: FAMOTIDINE 20 MG TAB PO SCH (09:22)
[2018-01-22] MEDS ORDERED: VANCOMYCIN 1.25 GM in NA CHLORIDE 0.9% 250 ML IV SCH (21:00)
--- NOTE | 2018-01-22 23:33 | PN ---
Date of Progress Note: 01/22/2018 Subjective: The patient was seen this morning for followup. Lying in bed, not in distress. Objective: Vital Signs: Reviewed. HEENT: Examination unremarkable. Lungs: Clear to auscultation. Heart: Heart sounds normal. Abdomen: Soft. Bowel sounds normal. No guarding, rigidity, tenderness, or distention. Extremities: Leg edema remains unchanged. Laboratory Data: Sodium 139, potassium 3.9, chloride 108, bicarb 24, BUN 18, creatinine 0.82, glucos e 87. Impression: 1.Deep venous thrombosis, acute, right leg. 2.Anemia due to acute blood loss. 3.Abdominal wall hematoma. 4.Urinary tract infection. 5.Multiple sclerosis. Plan: We will continue current medications and antibiotics. Social Service to make arrangements for IV vancomycin and IV ceftazidime therapy at [facility]. The patient has central line in place and possible discharge to go to [facility] tomorrow if arrangements get completed by Social Service fo r such antibiotics. I will see her tomorrow for followup. LAUREN/MODL Voice ID: [id number] Report ID: [id number]
[2018-01-23] MEDS: CEFTAZIDIME 1 GM in NA CHLORIDE 0.9% 100 ML IV SCH ×2 (00:28→08:45)
[2018-01-23 05:07] LABS: Magnesium 1.7 mg/dL (1.8-2.5); Potassium 4.2 mEq/L (3.6-5.0)
[2018-01-23 06:43] LABS: Basophils % 0.5 % (0-1.3); MCH 31.9 pg (27.0-35.0); MPV 8.4 fL (7.6-11.3)
[2018-01-23 06:50] LABS: Absolute Lymphocytes (CBC) 0.5 K/uL (0.7-4.9); Absolute Neutrophil 5.7 K/uL (1.8-8.0); Eosinophils % 3.8 % (0-4.4); Lymphocytes % 7.2 % (15.3-44.8); MCV 95.6 fL (80-100); Monocytes % 12.8 % (3.3-12.3); RBC Red Blood Cell Count 3.14 M/uL (3.86-4.86)
[2018-01-23 07:50] VITALS: BP 169/99; TEMP 97.8
[2018-01-23] MEDS: VITAMIN D 5,000 UNIT CAP PO SCH (08:45)
[2018-01-23] MEDS: CALCITROL 0.25 MCG CAP PO SCH (08:45)
[2018-01-23] MEDS: METOPROLOL TAR 25 MG TAB PO SCH (08:45)
[2018-01-23] MEDS: FAMOTIDINE 20 MG TAB PO SCH (08:45)
[2018-01-23 09:53] VITALS: O2SAT 94
--- NOTE | 2018-01-23 20:27 | P.PN ---
Date of Service: 01/22/18 Vital Signs Temp Pulse Resp BP Pulse Ox 97.8 F 83 18 169/99 H 94 01/23/18 07:49 01/23/18 08:45 01/23/18 07:49 01/23/18 08:45 01/23/18 07:49 Microbiology Results 01/12/18 13:00 Blood - Blood Aerobic Blood Culture - Final No growth in 5 days. 01/12/18 13:00 Blood - Blood Anaerobic Blood Culture - Final No growth in 5 days. 01/12/18 13:15 Blood - Blood Aerobic Blood Culture - Final No growth in 5 days. 01/12/18 13:15 Blood - Blood Anaerobic Blood Culture - Final No growth in 5 days. Assessment/ Plan: Nephrology. Doing well. CPS stable without CP or SOB. No acute events overnight. Vitals, medications, blood work and imaging reviewed in the chart. NAD. MMM. Neck supple. CTA. RRR. Left abd mass. No C/C. Hip & LE Edema 2+ . No rash. AA. Normal speech. Muscle atrophy and contracture. A/ MING may be Prerenal Azotemia vs ATN. Proteinuria. Hyperkalemia/ Hypokalemia. Acidosis. Lactic Acidosis. Hemorrhagic shock with Left abdominal wall hematoma. Anemia due to blood loss. Hypocalcemia. Hypomagnesemia. Hypoalbuminemia. RLE DVT. Multiple sclerosis. P/ Continue current POC and Medications. Increase Metoprolol as needed. Advance diet as tolerated. No NSAIDs. AM labs. Daily weight.
--- NOTE | 2018-01-23 20:28 | P.PN ---
Date of Service: 01/23/18 Vital Signs Temp Pulse Resp BP Pulse Ox 97.8 F 83 18 169/99 H 94 01/23/18 07:49 01/23/18 08:45 01/23/18 07:49 01/23/18 08:45 01/23/18 07:49 Microbiology Results 01/12/18 13:00 Blood - Blood Aerobic Blood Culture - Final No growth in 5 days. 01/12/18 13:00 Blood - Blood Anaerobic Blood Culture - Final No growth in 5 days. 01/12/18 13:15 Blood - Blood Aerobic Blood Culture - Final No growth in 5 days. 01/12/18 13:15 Blood - Blood Anaerobic Blood Culture - Final No growth in 5 days. Assessment/ Plan: Nephrology. Doing well. CPS stable without CP or SOB. No acute events overnight. Vitals, medications, blood work and imaging reviewed in the chart. NAD. MMM. Neck supple. CTA. RRR. Left abd mass. No C/C. Hip & LE Edema 2+ . No rash. AA. Normal speech. Muscle atrophy and contracture. A/ MING may be Prerenal Azotemia vs ATN. Proteinuria. Hyperkalemia/ Hypokalemia. Acidosis. Lactic Acidosis. Hemorrhagic shock with Left abdominal wall hematoma. Anemia due to blood loss. Hypocalcemia. Hypomagnesemia. Hypoalbuminemia. RLE DVT. Multiple sclerosis. P/ Continue current POC and Medications. Advance diet as tolerated. No NSAIDs. AM labs. Daily weight. Plan for discharge today; case discussed with nurse.
--- NOTE | 2018-01-24 07:47 | DS ---
Date of Discharge: 01/23/2018 Disposition: Discharged to go to [facility]. Physical Examination: HEENT: Unremarkable. Lungs: Clear to auscultation. Heart: Sounds normal. Abdomen: Soft, bowel sounds normal. No guarding, rigidity, tenderness, distention. Left sided abdominal wall hematoma present with minimum oozing. Overall, symmetrically better than before. Extremities: Leg edema present. Laboratory Data: Last white count today is 7.6, hemoglobin 10, platelets 198. Her hemoglobin when she first came in on 01/12/2018 was 10.6 and it dropped down to 5 on the same day of admission. That was the lowest hemoglobin during this hospitalization. The patient has received multiple PRBC blood transfusion about 7 units on the day of this hospitalization. Last time she received blood transfusion was on 01/14/2018. After that her hemoglobin has remained stable at around 9-10 range. Her white count when she came in was 14.5, highest white count 21.2, last white count 7.6 today. Her platelet count when she came in was 306, it dropped down to 96 on the day after admission and the patient received 2 units of single donor platelet transfusion during this hospitalization. Last time, she received platelet transfusion was on 2017. After that platelet has remained stable. Last platelet count today 198. Her urine culture grew Pseudomonas and Enterococcus faecalis. Blood culture is negative. Discharge Medications And Instructions: 1. Continue all prior [facility] medication except we will discontinue Lovenox, discontinue potassium, and discontinue ibuprofen. New medication includes metoprolol 25 mg by mouth 2 times a day. 2. long-term to give 1 week of IV vancomycin 1.25 g IV piggyback every 48 hours for 1 week and ceftazidime 1 g IV piggyback every 8 hours for 1 week. 3. Draw blood for a vancomycin trough level, CBC, Chem-7, and magnesium level with every other dose of vancomycin. 4. Flush central line per protocol. 5. Change central line dressing per protocol. 6. Remove central line after 1 week of IV antibiotic therapy completed. Hospital Course: This is a 72-year-old female patient living at [facility] who has advanced multiple sclerosis problem, who is bed-bound, and has quadriplegia due to her multiple sclerosis. She only has range of motion with 1 upper extremity; otherwise, she is not able to move her extremities at all. She has a history of DVT of leg, which was almost a year ago that was diagnosed at the [facility] and was treated with oral anticoagulant medication Eliquis. Just about a month or 2 months ago while on Eliquis, she had recurrence of DVT of lower extremity and this was considered as failure of Eliquis, so she was started on Lovenox and Eliquis was discontinued. Venous Doppler was repeated at [facility] which showed resolution of her DVT after Lovenox was started and we decided to continue Lovenox therapy. Meanwhile, she now ends up having problem with abdominal wall hematoma and she was sent to emergency room with this problem. After she was evaluated, she was admitted to the hospital. The patient had significantly large hematoma involving left anterior abdominal wall. There was no evidence of abdominal compartment syndrome. The patient was in hemorrhagic shock and she was admitted to intensive care unit. Central line was placed in emergency room. IV fluid was given to her. She also required vasopressor medication in the beginning. Over a period of time, some blood pressure improved. We were able to discontinue vasopressor medication. She received approximately 7 units of PRBC blood transfusion, about 4 units of fresh frozen plasma, and 2 units of single donor platelet transfusion. Venous Doppler of lower extremity showed DVT involving right lower extremity. No DVT of left leg. SCD was applied to left leg. Once her condition was stable in ICU , she was transferred to medical floor and Dr. Nair from General surgery was consulted because of the patient's now inability to take any oral anticoagulant medication and she is at very high risk of having recurrent DVT, and as a result of complications like pulmonary embolism which could result in left hip problems, so it was recommended for patient to have IVC filter placement. Dr. Nair performed the procedure, it went without any complication and the patient has urinary tract infection requiring IV antibiotic therapy and she has a central line in the right subclavian region. Social Service was consulted to make arrangements for IV antibiotics to be given at [facility]. Once all arrangements completed, the patient was discharged to go to [facility]. The patient also had acute kidney injury resolved. Nephrology consulted. The patient did not require any dialysis. Her creatinine has normalized. I did contact two of patient's family members, Talia and Dr. Mena who is out of town. Initially we provide details and information. The patient has recovered very well. Final Diagnoses: 1. Hemorrhagic shock. 2. Acute hematoma, abdominal wall. 3. Acute blood loss, anemia. 4. Thrombocytopenia. 5. Quadriplegia secondary to multiple sclerosis. 6. Acute renal failure. 7. Hyperkalemia. 8. Multiple sclerosis. 9. Deep vein thrombosis, right leg. 10. Osteoporosis. 11. Hypertension. 12. Allergic rhinitis. 13. Urinary tract infection. LAUREN/MODL Voice ID: [id number] Report ID: [id number] MTDD
== END 2018-01-23 10:25 | DRG 853 ==
LOC: ER 11:28 → ERHOLD 14:44 → 3RD-ICU 16:39 → 4TH 01-18 15:15
PROVIDERS: ADMIT Internal Medicine; ATTEND Internal Medicine
PROC: 06H03DZ Insertion of Intraluminal Device into Inferior Vena Cava, Percutaneous Approach (ICD-10-PCS; principal; 2018-01-18 09:00)
DX: R57.8 Other shock (principal); N17.0 Acute kidney failure with tubular necrosis; G82.50 Quadriplegia, unspecified; D62 Acute posthemorrhagic anemia; I82.401 Acute embolism and thrombosis of unspecified deep veins of right lower extremity; N39.0 Urinary tract infection, site not specified; M79.81 Nontraumatic hematoma of soft tissue; D69.6 Thrombocytopenia, unspecified; G35 Multiple sclerosis; I10 Essential (primary) hypertension; J30.9 Allergic rhinitis, unspecified; E87.6 Hypokalemia; E87.5 Hyperkalemia; I95.9 Hypotension, unspecified; R53.81 Other malaise; E83.42 Hypomagnesemia; B96.5 Pseudomonas (aeruginosa) (mallei) (pseudomallei) as the cause of diseases classified elsewhere; B95.2 Enterococcus as the cause of diseases classified elsewhere; M81.0 Age-related osteoporosis without current pathological fracture; T45.515A Adverse effect of anticoagulants, initial encounter; Z74.01 Bed confinement status; Z86.718 Personal history of other venous thrombosis and embolism
CPT/HCPCS: 36415; 51702; 71045; 71250; 74176; 76000; 76770; 80048; 80053; 80069; 80076; 80202; 81001; 81003; 82043; 82150; 82550; 82553; 82570; 83605; 83690; 83735; 83880; 84100; 84145; 84300; 84484; 84550; 85014; 85018; 85025; 85610; 85652; 85730; 86140; 86850; 86900; 86901; 86927; 87040; 87077; 87086; 87088; 87186; 93005; 93970; 99291; 99292; J0153; J0692; J0713; J1644; J1940; J2250; J2370; J2405; J3010; J3370; J3475; J7030; J7060; P9016; P9017; P9035; P9059

== ENCOUNTER 2018-04-23 14:00 | Inpatient (IN) | payer OTHER ==
--- NOTE | 2018-04-23 16:03 | RAD REPORT ---
EXAM DESCRIPTION: RAD - Chest Single View - 04/23/2018 3:54 pm CLINICAL HISTORY: COUGH Chest pain. COMPARISON: Chest Single View dated 01/18/2018; Chest Single View dated 01/12/2018; Chest Single View d ated 01/12/2018; Chest Single View dated 01/31/2017 FINDINGS: Portable technique and patient rotation to the left limits examination quality. The lungs are grossly clear. The heart is moderately enlarged. No displaced fractures.Diffuse osteope floyd. IMPRESSION: No acute intrathoracic process suspected.
[2018-04-23 16:13] LABS: Absolute Lymphocytes (CBC) 1.2 K/uL (0.7-4.9); Absolute Monocytes 0.7 K/uL (0.1-1.3); Basophils % 0.3 % (0-1.3); Eosinophils % 4.6 % (0-4.4); Hematocrit 41.6 % (36.0-45.0); Lymphocytes % 23.5 % (15.3-44.8); MCH 32.4 pg (27.0-35.0); MCV 99.8 fL (80-100); MPV 8.3 fL (7.6-11.3); Monocytes % 13.8 % (3.3-12.3); RBC Red Blood Cell Count 4.16 M/uL (3.86-4.86)
[2018-04-23 16:33] LABS: ALT/SGPT 26 U/L (12-78); AST/SGOT 27 U/L (15-37); Albumin 2.3 g/dL (3.4-5.0); Alkaline Phosphatase 114 U/L (45-117); BUN Blood Urea Nitrogen 17 mg/dL (7-18); Bicarbonate 29 mmol/L (21-32); Bilirubin Direct < 0.1 mg/dL (0-0.2); Bilirubin Total 0.2 mg/dL (0.2-1.0); CKMB Creatine Kinase MB < 1.0 ng/mL (0.3-3.6); Creatine Phosphokinase 26 U/L (26-192); Glucose Level 99 mg/dL (74-106); Lipase 117 U/L (73-393); NT PRO-BNP 416 pg/mL (<125); Potassium 4.4 mmol/L (3.5-5.1); Protein, Total 6.2 g/dL (6.4-8.2); Sodium Level 144 mmol/L (136-145); Troponin (Emerg Dept Use Only) < 0.02 ng/mL (0.0-0.045)
[2018-04-23 16:34] LABS: Protime INR 0.94
--- NOTE | 2018-04-23 17:06 | RAD REPORT ---
EXAM DESCRIPTION: US - Extrem Venous W Compress [place] - 04/23/2018 4:42 pm CLINICAL HISTORY: Leg pain and swelling COMPARISON: Ultrasound January 12 TECHNIQUE: Real-time sonographic evaluation of the bilateral lower extremity common femoral, superfi cial femoral, popliteal and posterior tibial veins was performed. FINDINGS: Normal compressibility, flow augmentation, phasic flow and spontaneous flow are identified in the left lower extremity common femoral, superficial femoral, popliteal and posterior tibial vein s. No left leg intraluminal filling defects seen. Echogenic material is present in the right common femoral vein near the junction with the greater sap henous vein. There is partial compression of the vessel. The superficial femoral, popliteal and poste rior tibial veins show no thrombus in the right leg. IMPRESSION: Suspected chronic thrombus partially filling the right common femoral vein. A small comp onent of acute thrombus cannot be entirely excluded. The left leg and remainder of the right lower extremity show no thrombus findings.
--- NOTE | 2018-04-23 17:10 | RAD REPORT ---
EXAM DESCRIPTION: US - Lower Extremity Arterial Bilat - 04/23/2018 4:43 pm CLINICAL HISTORY: Bilateral leg pain COMPARISON: None. TECHNIQUE: Grayscale and Doppler interrogation of the bilateral lower extremity arterial tree perfor med. Waveforms were obtained along the length of each lower extremity. Visual inspection of the lower extremity arterial tree performed. FINDINGS: Triphasic to biphasic waveform patterns were seen along the length of each lower extremity . No occlusion or focal flow restrictive lesion identifiable. There is asymmetry of the common femora l velocity. Right common femoral artery peak systolic velocity was 68 cm/second. Left common femoral velocity was 150 cm/second. Similar velocity values were seen in the femoral, popliteal and ankle art eries. No suspicious waveform pattern. No suspicious soft tissue finding. IMPRESSION: Bilateral lower extremity peripheral arterial disease is present but no occlusion or foc al flow restricting lesion identified.
--- NOTE | 2018-04-23 17:51 | RAD REPORT ---
EXAM DESCRIPTION: CTAbdomen Pelvis W Contrast - 04/23/2018 5:33 pm CLINICAL HISTORY: Abdominal pain. ABD PAIN COMPARISON: CT ABD PELVIS W CONTRAST dated 06/04/2009 TECHNIQUE: Biphasic CT imaging of the abdomen and pelvis was performed with 100 ml non-ionic IV cont rast. All CT scans are performed using dose optimization technique as appropriate and may include automated exposure control or mA/KV adjustment according to patient size. FINDINGS: The examination is motion degraded, limiting detailed.Mild linear subsegmental atelectasis is present in the the lung bases. The liver demonstrates no focal mass or biliary dilatation. Cholelithiasis. The spleen, pancreas, adr enal glands are normal. Bilateral renal cysts are present. Several stones are noted in both renal riccardo ices. Prominent stone is present in the proximal left ureter measuring 12 mm (1070 HU). Mild bilatera l hydronephrosis is seen. Nine VC filter is in place. Moderate stool is present in the rectosigmoid colon. The appendix is norm al. Subcutaneous fluid collection is seen in the left lower quadrant with adjacent skin thickening mo st compatible with a subcutaneous abscess. This is 1-2 mm below the skin surface and measures 9 x 9 c m. No acute fracture identified. IMPRESSION: Subcutaneous abscess suspected just below the skin surface in the left lower quadrant (9 x 9 cm). This abscess does not appear to extend into the intra-abdominal or intrapelvic cavity. 12 mm stone proximal left ureter with mild left hydronephrosis. Bilateral nephrolithiasis. Cholelithiasis. Moderate rectosigmoid fecal retention.
[2018-04-23] MEDS ORDERED: CEFTRIAXONE/SWI 1gm 1 GM/10 ML SYR ONE (18:59)
--- NOTE | 2018-04-23 19:23 | EKG ---
Test Date: 2018-04-23 Test Time: 16:43:22 Furnace Caretaker: DIANNA MEASUREMENT RESULTS: Intervals: Rate: 71 WV: 182 QRSD: 76 QT: 382 QTc: 415 [place]: P: 84 WV: 182 QRS: 43 T: 47 INTERPRETIVE STATEMENTS: Normal sinus rhythm Possible Left atrial enlargement Borderline ECG Compared to ECG 01/12/2018 19:53:42 Sinus tachycardia no longer present ST (T wave) deviation no longer present Electronically Signed On 04-23-18 19:22:33 CDT by Mundo Johnson
--- NOTE | 2018-04-23 19:29 | ER ---
Nurse's Notes [facility] Name: Meredith Pearson Age: 72 yrs Sex: Female : 1945 Arrival Date: 04/23/2018 Time: 14:05 Bed 24 Private MD: Diagnosis: Hydronephrosis with renal and ureteral calculous obstruction;Edema, unspecified-right chronic dvt Presentation: 04/23 14:06 Presenting complaint: EMS states: Staff at [facility] noticed that her right aj1 foot appeared red and swollen when they checked on her today so they sent her to ER for evaluation. Patient states that she is unsure when the swelling started. Patient denies fever. half-way staff reports that she had initially been admitted to their care for DVT, but that has now resolved. She was previously taking blood thinners, but was taken off a month ago because she had a GI bleed. Transition of care: patient was received from another setting of care (long-term care facility), [facility]. Onset of symptoms is unknown. Risk Assessment: Do you want to hurt yourself or someone else? Patient reports no desire to harm self or others. Initial Sepsis Screen: Does the patient meet any 2 criteria? No. Patient's initial sepsis screen is negative. Does the patient have a suspected source of infection? No. Patient's initial sepsis screen is negative. Care prior to arrival: None. 14:06 Method Of Arrival: EMS: [facility] aj 14:06 Acuity: JOSE ANTONIO 3 aj1 Triage Assessment: 14:18 General: Appears in no apparent distress. comfortable, Behavior is calm, cooperative, aj1 appropriate for age. Pain: Denies pain. Historical: - Allergies: 14:18 Tylenol; aj1 14:18 Aspirin; aj1 14:18 Ampicillin; aj1 14:18 PENICILLINS; aj1 - Home Meds: 14:18 DuoDERM Hydroactive 4 X 4 " topical bndg [Active]; arginald packet 1 packet daily aj1 [Active]; cetirizine 10 mg Oral tab 1 tab once daily [Active]; interferon beta-1a intramuscular 30 mcg intramuscular 0.5 mL once wkly [Active]; metoprolol tartrate 25 mg Oral tab 1 tab 2 times per day [Active]; multivitamin oral oral daily [Active]; Santyl 250 unit/gram Topical oint once daily [Active]; triamcinolone acetonide 0.1 % Topical crea 2 times per day [Active]; Vitamin C 500 mg Oral tab daily [Active]; zinc sulfate 220 mg Oral tab daily [Active]; - PMHx: 14:18 Dementia; DVT; fatigue; Hypertension; Multiple Sclerosis; Osteoporosis; aj1 Tubulo-interstitial nephritis; ADD/ADHD; - Immunization history:: Adult Immunizations up to date. - Social history:: Smoking status: Patient/guardian denies using tobacco. - Ebola Screening: : Patient denies travel to an Ebola-affected area in the 21 days before illness onset. - Family history:: not pertinent. Screenin:25 Abuse screen: Denies threats or abuse. Denies injuries from another. Nutritional aj1 screening: No deficits noted. Tuberculosis screening: No symptoms or risk factors identified. 20:55 Fall Risk No fall in past 12 months (0 pts). Secondary diagnosis (15 points) impaired aj1 mobility, IV access (20 points). Ambulatory Aid- None/Bed Rest/Nurse Assist (0 pts). Gait- Impaired (20 pts.). Mental Status- Overestimates/Forgets Limitations (15 pts.). Total Alves Fall Scale indicates High Risk Score (45 or more points). Fall prevention measures have been instituted. As available patient and family educated on Fall Prevention Program and Strategies. Assessment: 14:25 General: Appears in no apparent distress. comfortable, Behavior is calm, cooperative, aj1 appropriate for age. Pain: Denies pain. Neuro: Level of Consciousness is awake, alert, obeys commands. Cardiovascular: Denies chest pain, Patient's skin is warm and dry. Edema is 3+ to right foot. Respiratory: Airway is patent Respiratory effort is even, unlabored, Respiratory pattern is regular, symmetrical. GI: No signs and/or symptoms were reported involving the gastrointestinal system. : No deficits noted. EENT: No signs and/or symptoms were reported regarding the EENT system. Derm: Skin is pink, warm \\T\\ dry. normal. Derm: Decubitus located on sacrum is unstageable. Musculoskeletal: Patient has contracture of left arm. 15:30 Reassessment: Patient appears in no apparent distress at this time. No changes from aj1 previously documented assessment. Patient and/or family updated on plan of care and expected duration. Pain level reassessed. Patient is alert, oriented x 3, equal unlabored respirations, skin warm/dry/pink. 16:30 Reassessment: Patient and/or family updated on plan of care and expected duration. Pain aj1 level reassessed. General: Appears in no apparent distress. comfortable, Behavior is calm, cooperative, appropriate for age. Pain: Denies pain. Neuro: Level of Consciousness is awake, alert, obeys commands. Cardiovascular: Patient's skin is warm and dry. Respiratory: Airway is patent Respiratory effort is even, unlabored, Respiratory pattern is regular, symmetrical. Derm: Skin is pink, warm \\T\\ dry. normal. Musculoskeletal: CMs within normal limits for this patietn. 16:55 Reassessment: Patient has finished drinking her contrast, notified [place] in [place]. aj1 17:30 Reassessment: Patient appears in no apparent distress at this time. No changes from aj1 previously documented assessment. Patient and/or family updated on plan of care and expected duration. Pain level reassessed. Patient is alert, oriented x 3, equal unlabored respirations, skin warm/dry/pink. 18:23 Reassessment: Patient and/or family updated on plan of care and expected duration. Pain aj1 level reassessed. General: Appears in no apparent distress. comfortable, Behavior is calm, cooperative, appropriate for age. Pain: Denies pain. Neuro: Level of Consciousness is awake, alert, obeys commands. Cardiovascular: Patient's skin is warm and dry. Respiratory: Airway is patent Respiratory effort is even, unlabored, Respiratory pattern is regular, symmetrical. GI: No signs and/or symptoms were reported involving the gastrointestinal system. : No deficits noted. No signs and/or symptoms were reported regarding the genitourinary system. Derm: Skin is pink, warm \\T\\ dry. normal. Musculoskeletal:. Musculoskeletal: CMS within normal limits for patient. 19:00 Reassessment: Patient diaper changed. aj1 19:30 Reassessment: Patient appears in no apparent distress at this time. No changes from aj1 previously documented assessment. Patient and/or family updated on plan of care and expected duration. Pain level reassessed. Patient is alert, oriented x 3, equal unlabored respirations, skin warm/dry/pink. 20:30 Reassessment: Patient appears in no apparent distress at this time. No changes from aj1 previously documented assessment. Patient and/or family updated on plan of care and expected duration. Pain level reassessed. Patient is alert, oriented x 3, equal unlabored respirations, skin warm/dry/pink. 21:45 Reassessment: Patient appears in no apparent distress at this time. No changes from aj1 previously documented assessment. Patient and/or family updated on plan of care and expected duration. Pain level reassessed. Patient is alert, oriented x 3, equal unlabored respirations, skin warm/dry/pink. Vital Signs: 14:18 BP 123 / 53; Pulse 71; Resp 18; Temp 97.7(O); Pulse Ox 100% on R/A; Height 5 ft. 3 in. aj1 (160.02 cm); Pain 0/10; 15:00 BP 121 / 54; Pulse 62; Resp 18; Pulse Ox 96% ; aj1 16:00 BP 129 / 51; Pulse 72; Resp 16; Pulse Ox 97% on R/A; aj1 17:00 BP 140 / 64; Pulse 75; Resp 18; Pulse Ox 100% on R/A; aj1 18:00 BP 132 / 68; Pulse 69; Resp 20; Pulse Ox 97% on R/A; aj1 20:51 BP 127 / 85; Pulse 72; Resp 20; Pulse Ox 96% on R/A; aj1 20:54 Temp 98.2(O); aj1 ED Course: 14:05 Patient arrived in ED. aj1 14:08 Triage completed. aj1 14:12 Lucas Hicks MD is Attending Physician. [facility] 14:18 Arm band placed on. aj1 14:25 Patient has correct armband on for positive identification. Bed in low position. Call aj1 light in reach. Side rails up X 1. 14:25 No provider procedures requiring assistance completed. aj1 15:34 Lara Cano, RN is Primary Nurse. aj1 15:45 Missed attempt(s): 22 gauge in right antecubital area. Bleeding controlled, band aid jp3 applied, catheter tip intact. 15:50 Inserted saline lock: 24 gauge in right antecubital area, using aseptic technique. jp3 Blood collected. 15:51 Lipase Sent. jp3 15:51 Basic Metabolic Panel Sent. jp3 15:51 Troponin (emerg Dept Use Only) Sent. jp3 15:51 Ptt, Activated Sent. jp3 15:52 PT-INR Sent. jp3 15:52 NT PRO-BNP Sent. jp3 15:52 Magnesium Sent. jp3 15:52 LFT's Sent. jp3 15:52 CPK Sent. jp3 15:52 Ckmb Sent. jp3 15:52 CBC with Diff Sent. jp3 15:54 XRAY Chest (1 view) In Process Unspecified. EDMS 15:57 US Extremity Venous W Compression [place] In Process Unspecified. EDMS 15:57 US LE Arterial Bilateral In Process Unspecified. EDMS 16:48 EKG done, by ED staff, reviewed by Lucas Hicks MD. jp3 17:33 CT Abd/Pelvis - W/Contrast In Process Unspecified. EDIA 19:24 Sandy Villagomez MD is Hospitalizing Provider. [facility] 20:57 Abdomen 1 View (KUB) XRAY Sent. 20:57 Patient admitted, IV remains in place. aj1 Administered Medications: 16:59 Drug: NS 0.9% 1000 ml Route: IV; Rate: 75 ml/hr; Site: right antecubital; aj1 19:07 Drug: Rocephin - (cefTRIAXone) 1 grams Route: IVPB; Infused Over: 30 mins; Site: right rv antecubital; Outcome: 19:28 Decision to Hospitalize by Provider. [facility] 21:07 Admitted to Tele accompanied by [facility], via stretcher, room 228, with chart, Report bb called to Grisel FORTE 21:07 Condition: stable 21:45 Patient left the ED. aj1 Signatures: Dispatcher [employer] EDLara Hurt, RN RN aj1 Lucas Hicks MD MD cha Ballard, Brenda RN RN Yordan Soto, RN RN John Sequeira jp3 Corrections: (The following items were deleted from the chart) 14:23 14:06 Presenting complaint: EMS states: Staff at [facility] noticed that her aj1 right foot appeared red and swollen when they checked on her today so they sent her to ER for evaluation. Patient states that she is unsure when the swelling started. Patient denies fever. aj1
--- NOTE | 2018-04-23 19:29 | EDPHYS ---
Physician Documentation [facility] Name: Meredith Pearson Age: 72 yrs Sex: Female : 1945 Arrival Date: 04/23/2018 Time: 14:05 Bed 24 Private MD: ED Physician Lucas Hicks HPI: 04/23 16:21 This 72 yrs old Female presents to ER via EMS with complaints of Feet dinorah Swelling. 16:21 The patient presents with decreased range of motion. The complaints affect the lateral dinorah aspect of right calf, right ankle, lateral aspect of right foot, right calf, right Achilles, right heel, medial aspect of right calf, medial aspect of right foot, right shahid, anterior aspect of right ankle and dorsum of right foot. Context: The problem was sustained at an unknown site. Onset: The symptoms/episode began/occurred 2 day(s) ago. Modifying factors: The symptoms are alleviated by nothing. Associated signs and symptoms: The patient has no apparent associated signs or symptoms. Severity of symptoms: At their worst the symptoms were mild, in the emergency department the symptoms are unchanged. The patient has experienced similar episodes in the past, several times. Historical: - Allergies: 14:18 Tylenol; aj1 14:18 Aspirin; aj1 14:18 Ampicillin; aj1 14:18 PENICILLINS; aj1 - Home Meds: 14:18 DuoDERM Hydroactive 4 X 4 " topical bndg [Active]; arginald packet 1 packet daily aj1 [Active]; cetirizine 10 mg Oral tab 1 tab once daily [Active]; interferon beta-1a intramuscular 30 mcg intramuscular 0.5 mL once wkly [Active]; metoprolol tartrate 25 mg Oral tab 1 tab 2 times per day [Active]; multivitamin oral oral daily [Active]; Santyl 250 unit/gram Topical oint once daily [Active]; triamcinolone acetonide 0.1 % Topical crea 2 times per day [Active]; Vitamin C 500 mg Oral tab daily [Active]; zinc sulfate 220 mg Oral tab daily [Active]; - PMHx: 14:18 Dementia; DVT; fatigue; Hypertension; Multiple Sclerosis; Osteoporosis; aj1 Tubulo-interstitial nephritis; ADD/ADHD; - Immunization history:: Adult Immunizations up to date. - Social history:: Smoking status: Patient/guardian denies using tobacco. - Ebola Screening: : Patient denies travel to an Ebola-affected area in the 21 days before illness onset. - Family history:: not pertinent. ROS: 16:21 Constitutional: Negative for fever, chills, and weight loss, Eyes: Negative for injury, dinorah pain, redness, and discharge, ENT: Negative for injury, pain, and discharge, Neck: Negative for injury, pain, and swelling, Cardiovascular: Negative for chest pain, palpitations, and edema, Respiratory: Negative for shortness of breath, cough, wheezing, and pleuritic chest pain, Abdomen/GI: Negative for abdominal pain, nausea, vomiting, diarrhea, and constipation, Back: Negative for injury and pain, : Negative for injury, bleeding, discharge, and swelling, Skin: Negative for injury, rash, and discoloration, Neuro: Negative for headache, weakness, numbness, tingling, and seizure, Psych: Negative for depression, anxiety, suicide ideation, homicidal ideation, and hallucinations, Allergy/Immunology: Negative for hives, rash, and allergies, Endocrine: Negative for neck swelling, polydipsia, polyuria, polyphagia, and marked weight changes, Hematologic/Lymphatic: Negative for swollen nodes, abnormal bleeding, and unusual bruising. 16:21 MS/extremity: Positive for decreased range of motion, pain, swelling, tenderness, of the right leg and left leg. Exam: 16:21 Constitutional: This is a well developed, well nourished patient who is awake, alert, dinorah and in no acute distress. Head/Face: Normocephalic, atraumatic. Eyes: Pupils equal round and reactive to light, extra-ocular motions intact. Lids and lashes normal. Conjunctiva and sclera are non-icteric and not injected. Cornea within normal limits. Periorbital areas with no swelling, redness, or edema. ENT: Nares patent. No nasal discharge, no septal abnormalities noted. Tympanic membranes are normal and external auditory canals are clear. Oropharynx with no redness, swelling, or masses, exudates, or evidence of obstruction, uvula midline. Mucous membranes moist. Neck: Trachea midline, no thyromegaly or masses palpated, and no cervical lymphadenopathy. Supple, full range of motion without nuchal rigidity, or vertebral point tenderness. No Meningismus. Chest/axilla: Normal chest wall appearance and motion. Nontender with no deformity. No lesions are appreciated. Cardiovascular: Regular rate and rhythm with a normal S1 and S2. No gallops, murmurs, or rubs. Normal PMI, no JVD. No pulse deficits. Respiratory: Lungs have equal breath sounds bilaterally, clear to auscultation and percussion. No rales, rhonchi or wheezes noted. No increased work of breathing, no retractions or nasal flaring. Abdomen/GI: Soft, non-tender, with normal bowel sounds. No distension or tympany. No guarding or rebound. No evidence of tenderness throughout. Back: No spinal tenderness. No costovertebral tenderness. Full range of motion. Neuro: Awake and alert, GCS 15, oriented to person, place, time, and situation. Cranial nerves II-XII grossly intact. Motor strength 5/5 in all extremities. Sensory grossly intact. Cerebellar exam normal. Normal gait. Psych: Awake, alert, with orientation to person, place and time. Behavior, mood, and affect are within normal limits. 16:21 Musculoskeletal/extremity: DVT Exam: negative Homans' sign noted on exam, no appreciated bluish discoloration, no erythema, no increased warmth, pain, swelling, tenderness. Vital Signs: 14:18 BP 123 / 53; Pulse 71; Resp 18; Temp 97.7(O); Pulse Ox 100% on R/A; Height 5 ft. 3 in. aj1 (160.02 cm); Pain 0/10; 15:00 BP 121 / 54; Pulse 62; Resp 18; Pulse Ox 96% ; aj1 16:00 BP 129 / 51; Pulse 72; Resp 16; Pulse Ox 97% on R/A; aj1 17:00 BP 140 / 64; Pulse 75; Resp 18; Pulse Ox 100% on R/A; aj1 18:00 BP 132 / 68; Pulse 69; Resp 20; Pulse Ox 97% on R/A; aj1 20:51 BP 127 / 85; Pulse 72; Resp 20; Pulse Ox 96% on R/A; aj1 20:54 Temp 98.2(O); aj1 MDM: 14:12 Patient medically screened. [facility] 16:24 Data reviewed: vital signs, nurses notes, lab test result(s), EKG, radiologic studies, [facility] CT scan, doppler, plain films. 04/23 15:30 Order name: Basic Metabolic Panel; Complete Time: 17:31 [facility] 04/23 15:30 Order name: CBC with Diff; Complete Time: 17:31 [facility] 04/23 15:30 Order name: Ckmb; Complete Time: 17:31 [facility] 04/23 15:30 Order name: CPK; Complete Time: 17:31 [facility] 04/23 15:30 Order name: LFT's; Complete Time: 17:31 [facility] 04/23 15:30 Order name: Magnesium; Complete Time: 17:31 [facility] 04/23 15:30 Order name: NT PRO-BNP; Complete Time: 17:31 [facility] 04/23 15:30 Order name: PT-INR; Complete Time: 17:31 [facility] 04/23 15:30 Order name: Ptt, Activated; Complete Time: 17:31 [facility] 04/23 15:30 Order name: Troponin (emerg Dept Use Only); Complete Time: 17:31 [facility] 04/23 15:30 Order name: Lipase; Complete Time: 17:31 [facility] 04/23 15:30 Order name: Urine Culture [facility] 04/23 19:34 Order name: Basic Metabolic Panel [facility] 04/23 19:34 Order name: Basic Metabolic Panel [facility] 04/23 15:30 Order name: XRAY Chest (1 view); Complete Time: 17:31 [facility] 04/23 15:30 Order name: EKG; Complete Time: 15:31 [facility] 04/23 15:41 Order name: CT Abd/Pelvis - W/Contrast; Complete Time: 19:23 [facility] 04/23 15:41 Order name: US Extremity Venous W Compression [place]; Complete Time: 17:31 [facility] 04/23 15:41 Order name: US LE Arterial Bilateral; Complete Time: 17:31 [facility] 04/23 19:34 Order name: CBC with Automated Diff [facility] 04/23 19:34 Order name: CBC with Automated Diff [facility] 04/23 19:34 Order name: Troponin I [facility] 04/23 19:34 Order name: Troponin I [facility] 04/23 19:34 Order name: Troponin I [facility] 04/23 19:34 Order name: Abdomen 1 View (KUB) XRAY [facility] 04/23 20:32 Order name: RAD [facility] 04/23 21:08 Order name: Urine Dipstick--Ancillary (enter results) rg2 04/23 21:40 Order name: Urine Dipstick-Ancillary [facility] 04/23 15:30 Order name: Cardiac monitoring; Complete Time: 15:52 [facility] 04/23 15:30 Order name: EKG - Nurse/Tech; Complete Time: 17:05 [facility] 04/23 15:30 Order name: IV Saline Lock; Complete Time: 15:52 [facility] 04/23 15:30 Order name: Labs collected and sent; Complete Time: 15:52 [facility] 04/23 15:30 Order name: O2 Per Protocol; Complete Time: 15:52 [facility] 04/23 15:30 Order name: O2 Sat Monitoring; Complete Time: 15:52 [facility] 04/23 18:49 Order name: Dupree; Complete Time: 20:35 [facility] 04/23 19:34 Order name: CONS Physician Consult [facility] 04/23 19:34 Order name: NPO [facility] 04/23 19:34 Order name: EKG Electrocardiogram [facility] 04/23 19:34 Order name: EKG Electrocardiogram [facility] 04/23 19:34 Order name: EKG Electrocardiogram [facility] 04/23 19:34 Order name: EKG Electrocardiogram EDMT Administered Medications: 16:59 Drug: NS 0.9% 1000 ml Route: IV; Rate: 75 ml/hr; Site: right antecubital; aj1 19:07 Drug: Rocephin - (cefTRIAXone) 1 grams Route: IVPB; Infused Over: 30 mins; Site: right rv antecubital; Disposition: 04/23/18 19:28 Hospitalization ordered by Sandy Villagomez for Inpatient Admission. Preliminary diagnosis are Hydronephrosis with renal and ureteral calculous obstruction, Edema, unspecified - right chronic dvt. - Bed requested for Telemetry/MedSurg (Inpatient). - Status is Inpatient Admission. aj1 - Condition is Stable. - Problem is new. - Symptoms have improved. UTI on Admission? Yes Signatures: Dispatcher [employer] EDMT Lara Cano RN RN aj1 Viki Plata RN RN dw Anderson, Corey, MD MD cha Vicente, Ronaldo, RN RN rv Corrections: (The following items were deleted from the chart) 19:30 19:28 Hospitalization Ordered by A Dahlia KIM for Inpatient Admission. Preliminary dw diagnosis is Hydronephrosis with renal and ureteral calculous obstruction; Edema, unspecified - right chronic dvt. Bed requested for Telemetry/MedSurg (Inpatient). Status is Inpatient Admission. Condition is Stable. Problem is new. Symptoms have improved. UTI on Admission? Yes. dinorah 21:45 19:30 04/23/2018 19:28 Hospitalization Ordered by A Dahlia KIM for Inpatient Admission. aj1 Preliminary diagnosis is Hydronephrosis with renal and ureteral calculous obstruction; Edema, unspecified - right chronic dvt. Bed requested for Telemetry/MedSurg (Inpatient). Status is Inpatient Admission. Condition is Stable. Problem is new. Symptoms have improved. UTI on Admission? Yes. dw
[2018-04-23] MEDS ORDERED: ONDANSETRON 4 MG/2 ML VIAL IV PRN (19:31)
[2018-04-23] MEDS ORDERED: ACETAMINOPHEN 500 MG TAB PO PRN (19:31)
[2018-04-23] MEDS ORDERED: FENTANYL CITR 100 MCG/2 ML IV PRN (19:33)
--- NOTE | 2018-04-23 20:31 | RAD REPORT ---
EXAM DESCRIPTION: RAD - Abdomen 1 View (KUB) - 04/23/2018 8:19 pm CLINICAL HISTORY: ABD PAIN Pain COMPARISON: Abdomen Pelvis W Contrast dated 04/23/2018 FINDINGS: A nonobstructive bowel-gas pattern is noted. Contrast is present in the colon. No evidence of free intraperitoneal air. IVC filter is in place. calculi are largely obscured by contrast and bowel gas on this study.
[2018-04-23 21:39] LABS: Urine Blood NEGATIVE (NEG); Urine Glucose NEGATIVE (NEG); Urine Protein NEGATIVE (NEG)
[2018-04-23] MEDS: NA CHLORIDE 0.9% 1,000 ML IV SCH (23:00)
[2018-04-23] MEDS: FAMOTIDINE 20 MG/2 ML VIAL IV SCH (23:00)
[2018-04-23 23:05] VITALS: BMI 27.6
[2018-04-24 05:54] LABS: BUN Blood Urea Nitrogen 15 mg/dL (7-18); Bicarbonate 26 mmol/L (21-32); Glucose Level 71 mg/dL (74-106); Potassium 3.8 mmol/L (3.5-5.1); Sodium Level 147 mmol/L (136-145)
[2018-04-24] MEDS: NA CHLORIDE 0.9% 1,000 ML IV SCH (06:00)
[2018-04-24 06:17] LABS: Absolute Lymphocytes (CBC) 1.1 K/uL (0.7-4.9); Absolute Monocytes 1.2 K/uL (0.1-1.3); Absolute Neutrophil 3.8 K/uL (1.8-8.0); Basophils % 0.6 % (0-1.3); Hematocrit 43.1 % (36.0-45.0); Lymphocytes % 17.3 % (15.3-44.8); MCH 32.6 pg (27.0-35.0); MCV 99.5 fL (80-100); MPV 8.8 fL (7.6-11.3); RBC Red Blood Cell Count 4.33 M/uL (3.86-4.86)
--- NOTE | 2018-04-24 06:44 | HP ---
Date of Admission: 04/23/2018 Chief Complaint: Leg swelling and not able to feel pulse. History Of Present Illness: A 72-year-old female patient who has advanced end-stage multiple scleros is, has been bed bound for many many years and she is under care of Dr. Thompson for multiple sclerosis. She had a history of recurrent deep vein thrombosis in spite of adequate anticoagulation therapy. She actually had recurrent DVT and she was on anticoagulation therapy for this. Initially, she was o n, I believe, Eliquis and then subsequently since she had DVT on Eliquis, she was started on Lovenox and while she was on Lovenox injection in January of this year, she actually had hemorrhagic shock and t his was due to her anticoagulation therapy. She had significantly large abdominal wall hematoma that was resulting in hemorrhagic shock and she required multiple units of blood transfusion. She did no t require any surgical intervention for this abdominal wall hematoma, but it was significantly large in size. With that in mind, decision was made that any anticoagulation medication is contraindicated and considering her bed-bound status and proven history of recurrent DVT in spite of taking Eliquis, she is at high risk of having another DVT and complication as a result of that like life-threatening complication including pulmonary embolism. So, recommendation was given to her to have IVC filter p lacement, she agreed and IVC filter was placed in January of last year and then she was sent to [facility] living. She continues to have this abdominal wall hematoma on the left side since that in January 2018, w felipah is 3 months ago. She does not have any pain in this location. She has chronic leg swelling, wh ich is nothing new. Today, nurse from senior living called and informed me that she was not able to f eel her pulse and she was concerned that her right leg felt cooler than left leg. With all these con cerns, we were concerned about any acute limb threatening vascular problems, so she was sent to emerg ency room. After she was evaluated in the ER, she was admitted to the hospital. I did see her in [facility] emergency room this evening. She denies any abdominal pain, nausea, vomiting. Medications: List reviewed. Review of Systems: Cardiovascular: As mentioned above. All other systems reviewed and negative. Allergies: TO AMPICILLIN, PENICILLIN, AND ASPIRIN. SHE IS ALSO LISTED ALLERGIC TO TYLENOL AND [facility] PATIENT SAYS THAT SHE IS ACTUALLY NOT ALLERGIC TO IT, BUT IT DOES NOT HELP WITH HER PAIN. Past Medical History: Significant for multiple sclerosis, hypertension, allergic rhinitis, deep vein thrombosis of lower extremities, osteoporosis. Past Surgical History: IVC filter placement in January of 2018. Family History: Not pertinent. Social History: Negative for smoking and alcohol use. Physical Examination: Vital Signs: When she first came into the emergency room, blood pressure 122/53, pulse 71, respirato ry rate 18, temperature 97.7, pulse ox 100%, height 5 feet 3 inches. General: Awake, alert, oriented, not in distress. HEENT: Head atraumatic, normocephalic. Conjunctivae nonerythematous. Sclerae white. Mouth, no thr ush or edema noted. Ears/Nose, no mass, lesion, discharge noted. Neck: Supple. No JVD, lymph nodes, bruit, thyromegaly noted. Lungs: Bilateral good equal air entry. Clear to auscultation. No rhonchi. No rales. Heart: Normal heart sounds, no murmur or gallop. Abdomen: Soft. Bowel sounds normoactive. No guarding, rigidity. No tenderness. Has large hematom a in left lower quadrant without any tenderness. Normal looking overlying skin, color, temperature. This has remained unchanged from my exam at the senior living. Extremities: Bilateral grade 2 to grade 3 pedal edema involving both thighs, both legs, both feet an d unable to feel dorsalis pedis artery pulse on either leg. There is no evidence of any cellulitis. Skin: No rash, ulcer, cellulitis. Lymphatics: No lymph node enlargement in neck, supraclavicular, infraclavicular region. Neuro: The patient is not able to move lower extremities at all and very limited movement with signi ficant muscle atrophy of upper extremity. This is her chronic finding. Chest: Unremarkable. External Genitalia: Deferred. Rectal: Deferred. Diagnostic Data: Venous Doppler of lower extremity shows suspected chronic thrombus partially fillin g the right common femoral vein. Small component of acute thrombus cannot be entirely excluded. Lef t leg and remainder of the right lower extremity shows no thrombus finding. Arterial Doppler of lowe r extremity shows bilateral lower extremity peripheral arterial disease present, but no occlusive or flow restricting lesion noted. CAT scan of abdomen and pelvis done in the emergency room showing lef t lower quadrant fluid collection likely resolving hematoma, stone in the left proximal ureter, which is a new finding with hydronephrosis. Laboratory Data: White count 5.1, hemoglobin 13.5, platelets 216. INR 0.94. Sodium 144, potassium 4.4, chloride 111, bicarb 29, BUN 17, creatinine 0.70, glucose 99, magnesium 2. Liver function tests unremarkable. Lipase 117. Urinalysis pending. Impression: 1.Deep venous thrombosis, right leg. 2.Peripheral vascular disease. 3.Hematoma, abdominal wall. 4.Multiple sclerosis. 5.Hypertension. 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 7.Osteoporosis. 8.Left ureter stone with hydronephrosis. Plan: Admit the patient to hospital for further evaluation and management of this problem. The fay ent is appropriate for inpatient and is expected to spend 2 midnights in hospital. We will go ahead and see her tomorrow morning for followup. At this point, there is no evidence of any abscess. We w ill go ahead and keep her n.p.o., consult urologist, Dr. Whiting, and she will be given IV fluid, pain medication, IV antibiotics per order and the patient is at acceptable risk from any urological proced ures that Dr. Whiting might perform tomorrow. Details and plan of treatment discussed with her. No fu rther intervention needed for her peripheral arterial disease at this point, and obviously, she is no t a candidate for any anticoagulation medication. Details of plan of treatment discussed with her. LAUREN/WAI Voice ID: [id number]
[2018-04-24] MEDS: FAMOTIDINE 20 MG/2 ML VIAL IV SCH ×2 (08:12→21:08)
[2018-04-24] MEDS: METOPROLOL TAR 25 MG TAB PO SCH ×2 (08:12→21:08)
[2018-04-24] MEDS: D5 0.45 NS 1,000 ML IV SCH ×2 (08:14→21:07)
--- NOTE | 2018-04-24 08:43 | RAD REPORT ---
EXAM DESCRIPTION: RAD - Abdomen 1 View (KUB) - 04/24/2018 7:33 am CLINICAL HISTORY: Abdomen pain. FINDINGS: The bowel gas pattern is unremarkable. Contrast is present throughout colon. A 13 millimeter left ureteral calculus lies adjacent to the L4 vertebral body
[2018-04-24 08:53] LABS: Blood Morphology Comment NOT SEEN (NOT SEEN); Platelet Estimate ADEQ
[2018-04-24] MEDS ORDERED: CEFTRIAXONE 1 GM/NS 50 ML 1 GM/50 ML BAG IV SCH (09:00)
[2018-04-24] MEDS ORDERED: Ringers Lactate 1,000 ML IV ONE (13:23)
[2018-04-24] MEDS ORDERED: LIDOCAINE 2% MPF 5 ML VIAL ONE (13:46)
[2018-04-24] MEDS ORDERED: FENTANYL CITR 100 MCG/2 ML ONE (13:46)
[2018-04-24] MEDS ORDERED: MIDAZOLAM HCL 2 MG/2 ML INJ ONE (13:46)
[2018-04-24] MEDS ORDERED: PROPOFOL 200 MG/20 ML VIAL IV ONE (13:46)
[2018-04-24] MEDS ORDERED: EPHEDRINE SULF 50 MG/10 ML SYR ONE (14:33)
--- NOTE | 2018-04-24 15:37 | EKG ---
Test Date: 2018-04-24 Test Time: 08:06:58 Envelope Machine Adjuster: PRESTON MEASUREMENT RESULTS: Intervals: Rate: 80 MS: 164 QRSD: 74 QT: 392 QTc: 452 [place]: P: 79 MS: 164 QRS: 45 T: 45 INTERPRETIVE STATEMENTS: Normal sinus rhythm Normal ECG Compared to ECG 04/23/2018 16:43:22 No significant changes Electronically Signed On 04-24-18 15:34:46 CDT by Mundo Johnson
--- NOTE | 2018-04-24 15:41 | CON ---
History Of Present Illness: A 72-year-old lady with history of multiple sclerosis and quadriplegia, history of DVT, history of hematoma secondary to anticoagulation, now she has an IVC filter placement . She came to the emergency room for left leg swelling, not able to feel a pulse. She had a DVT keagan dy performed that showed bilateral lower extremity peripheral arterial disease present, but no occlus ion or focal flow restricting or anything like a DVT. She did have a CAT scan revealing a 13 mm ston e in the bilateral left ureter, left L4. This was causing mild hydronephrosis in the left renal syst em. This stone was a new finding compared to the 01/12/2018 study. This stone is [address]. She was given all general information, alternatives and risks for proceed with a left ESWL. Francisca lew has been off her blood thinners for months now. Also given the option of possible cysto-stent plac ement. She denies pain, nausea, vomiting, or fevers. Allergies: TYLENOL DOES NOT HELP WITH PAIN. AMPICILLIN HAS A RASH. PENICILLIN CAUSES ITCHING. ASP IRIN INTERACTS WITH HER INTERFERON. Active Medications: Tylenol, Rocephin, famotidine, Lopressor, Zofran. Home Medications: Zinc, triamcinolone, ascorbic acid, multivitamin, metoprolol, arginine/ascorbic, v itamin C, interferon beta, Zyrtec, collagen collagenase, neomycin, bacitracin, triple antibiotic oint ment. Review of Systems: As mentioned above, 10-point review of system otherwise negative. Allergies: MENTIONED ABOVE. Past Medical History: Multiple sclerosis, hypertension, allergic rhinitis, she has DVT lower extremi ty, osteoporosis. Past Surgical History: IVC filter placed in January 2018. Family History: Noncontributory. Social History: Negative for smoking or alcohol use. Physical Examination: Vital Signs: Temperature 70, pulse 80, respirations 16, blood pressure 119/57. She is 97% saturatin g on room air. Afebrile. Stable. HEENT: Atraumatic, normocephalic. Neck: Supple. Lungs: Clear. Abdomen: Soft. There is some swelling on the left side that was retain from her subcutaneous hemato ma months ago. Neurologic: She has quadriplegia and multiple sclerosis. She is not able to move the lower extremit ies, and very limited movement in her upper extremities. External Dupree catheter draining clear urin e. Diagnostic Data: As mentioned above. Laboratory Data: White count 6.4, H and H 14 and 43, platelet count 194. Coagulations all normal. Chemistry shows sodium 147, potassium 3.8, chloride 113, carbon dioxide 26, BUN 15, creatinine 0.6, G FR greater than 90, glucose 71, calcium 8.2. The urine studies all negative, pH 6.0, specific gravit y 1.020, blood negative, nitrite negative, leukocyte esterase negative. Assessment: A 13 mm stone found in the ureter at the level of L4. Plan: For ESWL, possible cysto-stent. All the general information, alternatives, and risks were rev iewed, and the patient wishes to proceed. PANCHO/WAI Voice ID: [id number] Report ID: [id number]
[2018-04-24] MEDS: CEFTRIAXONE/SWI 1gm 1 GM/10 ML SYR IV SCH (17:58)
[2018-04-24] MEDS ORDERED: TAMSULOSIN 0.4 MG SR CAP PO SCH (21:00)
--- NOTE | 2018-04-25 01:09 | PN ---
Date of Progress Note: 04/24/2018 Subjective: The patient was seen this morning for followup. No abdominal pain, nausea, or vomiting. No shortness of breath. Objective: Vital Signs: Reviewed. HEENT: Examination unremarkable. Lungs: Clear to auscultation. Heart: Sounds normal. Abdomen: Soft. Bowel sounds normal. No guarding, rigidity, tenderness, or distention. Left lower quadrant abdominal wall hematoma present, unchanged. Extremities: Leg edema remains unchanged. Laboratory Data: White count 6.4, hemoglobin 14.1, and platelets 194. Sodium 147, potassium 3.8, ch loride 113, bicarb 26, BUN 15, creatinine 0.60, and glucose 71. Impression: 1.Left ureter stone with hydronephrosis. 2.Volume depletion. 3.Hematoma, abdominal wall. 4.Multiple sclerosis. Plan: We will continue IV antibiotic ceftriaxone. We will change IV fluid to D5 half-normal saline to help address volume depletion problem. We will continue home medications per order, which is meto prolol. Follow up with Dr. Whiting for kidney stone problem, and I will see her tomorrow for followup. LAUREN/MODL Voice ID: [id number] Report ID: [id number]
--- NOTE | 2018-04-25 07:04 | RAD REPORT ---
EXAM DESCRIPTION: RAD - Abdomen 1 View (KUB) - 04/25/2018 6:41 am CLINICAL HISTORY: Left ureteral calculus status post lithotripsy COMPARISON: April 24 KUB, April 23 CT study FINDINGS: Exam has substantial motion degradation. This limits the post lithotripsy assessment. Best estimate indicates fragmentation of the 13 millimeter stone near the mid ureter level. There now danielito ears to be several stone fragments at the left mid ureter approximately L4 level. Motion degraded bowel assessment shows no obstruction. Contrast is still present in the colon. Contra st volume has reduced since prior imaging. No free air or pneumatosis seen. IMPRESSION: Exam has substantial motion degradation limitations. Best estimate is the left mid ureter stone has been fragmented into multiple small stone still cluste red mid left ureter level L4.
[2018-04-25] MEDS: FAMOTIDINE 20 MG/2 ML VIAL IV SCH (09:30)
[2018-04-25] MEDS: METOPROLOL TAR 25 MG TAB PO SCH (09:30)
[2018-04-25] MEDS: D5 0.45 NS 1,000 ML IV SCH (10:40)
[2018-04-25 15:11] VITALS: O2SAT 97
[2018-04-25] MEDS: CEFTRIAXONE/SWI 1gm 1 GM/10 ML SYR IV SCH (16:41)
[2018-04-25 17:45] VITALS: BP 155/74; TEMP 97
--- NOTE | 2018-04-25 19:57 | PN ---
Subjective: Doing well today. Objective: KUB done, showing fragmented stones that she is passing. She is in no pain. Assessment: Status post extracorporeal shock wave lithotripsy, postoperative day 1. Plan: Send the patient home on Flomax. May follow up with me p.r.isiah XIAO pJosuérjess Thank you very much. PANCHO/WAI Voice ID: [id number] Report ID: [id number] JIE
--- NOTE | 2018-04-26 05:36 | DS ---
Date of Discharge: 04/25/2018 Disposition: Discharged to go to [facility]. Physical Examination: HEENT: Unremarkable. Lungs: Clear to auscultation. Heart: Sounds normal. Abdomen: Soft. Bowel sounds normal. No guarding, rigidity, distention. Presence of left lower rubina drant hematoma of abdominal wall present. Nontender. Extremities: Bilateral leg edema present, slightly better compared to what it was at the time of adm ission. Discharge Medications And Instructions: 1.Continue all prior home medications. 2.Follow with Dr. Whiting per his instruction. Hospital Course: A 72-year-old female patient, admitted to the hospital after she was sent to emerge [facility]cy room from [facility]. Please see dictated H and P for more information. The patient has signi ficant bilateral leg swelling and her venous Doppler of the left lower extremity was negative. Right lower extremity venous Doppler shows suspected chronic thrombus partially filling the right common f emoral vein and there is a small component of acute thrombus cannot be entirely excluded. CAT scan o f abdomen and pelvis shows left lower quadrant fluid collection in the abdominal wall, likely resolvi ng hematoma, and there was presence of stone in the left ureter causing left-sided hydronephrosis. E mpiric antibiotic was started, which was ceftriaxone. Dr. Whiting was consulted from Urology and Dr. Miya martini took the patient to surgery yesterday and during surgery he did lithotripsy and did not place an y stent in the ureter. Today, I did talk to Dr. Whiting and, after he evaluated the patient, he has re leased patient from the hospital. Medically, she is stable for discharge. No further intervention n eeded for hematoma as it is resolving compared to January of 2018, which is about 3 months ago. Her art erial Doppler of lower extremity had shown some peripheral vascular disease, but no significant probl em and no intervention needed for that. Final Diagnoses: 1.Left ureteral stone with hydronephrosis. 2.Abdominal wall hematoma. 3.Peripheral vascular disease. 4.Deep venous thrombosis, right leg. 5.Multiple sclerosis. 6.Hypertension. 7.Quadriplegia, secondary to multiple sclerosis. 8.Osteoporosis. LAUREN/MODL Voice ID: [id number] Report ID: [id number]
== END 2018-04-25 18:25 | disposition home or self-care (01) | DRG 691 ==
LOC: ER 14:00 → ERHOLD 19:29 → 2ND 20:09
PROVIDERS: ADMIT Internal Medicine; ATTEND Internal Medicine
PROC: 0T9B70Z Drainage of Bladder with Drainage Device, Via Natural or Artificial Opening (ICD-10-PCS; 2018-04-23)
PROC: 0TF7XZZ Fragmentation in Left Ureter, External Approach (ICD-10-PCS; principal; 2018-04-24 16:45)
DX: N13.2 Hydronephrosis with renal and ureteral calculous obstruction (principal); G82.50 Quadriplegia, unspecified; I82.401 Acute embolism and thrombosis of unspecified deep veins of right lower extremity; G35 Multiple sclerosis; I10 Essential (primary) hypertension; M81.0 Age-related osteoporosis without current pathological fracture; I73.9 Peripheral vascular disease, unspecified; E86.9 Volume depletion, unspecified; Z74.01 Bed confinement status
CPT/HCPCS: 36415; 50590; 71045; 74018; 74177; 80048; 80076; 81003; 82550; 82553; 83690; 83735; 83880; 84484; 85025; 85610; 85730; 87077; 87086; 87088; 87186; 93005; 93925; 93970; 96374; 99285; J0696; J2250; J3010; J7030; Q9967

== ENCOUNTER 2019-02-12 08:10 | Inpatient (IN) | payer OTHER ==
[2019-02-12 12:22] LABS: Protime INR 1.11
[2019-02-12 12:54] LABS: ALT/SGPT 22 U/L (12-78); AST/SGOT 20 U/L (15-37); Alkaline Phosphatase 153 U/L (45-117); BUN Blood Urea Nitrogen 20 mg/dL (7-18); Bicarbonate 30 mmol/L (21-32); Bilirubin Total 0.3 mg/dL (0.2-1.0); Glucose Level 100 mg/dL (74-106); Magnesium 2.3 mg/dL (1.8-2.4); Potassium 3.3 mmol/L (3.5-5.1); Protein, Total 6.3 g/dL (6.4-8.2); Sodium Level 144 mmol/L (136-145)
[2019-02-12 13:09] VITALS: BMI 24.0
[2019-02-12] MEDS: GENTAMICIN 80 MG/100 ML BAG 80 MG/100 ML BAG IV SCH ×2 (13:42→21:00)
--- NOTE | 2019-02-12 14:38 | RAD REPORT ---
EXAM DESCRIPTION: RAD - Chest Single View - 02/12/2019 2:07 pm CLINICAL HISTORY: Device placement PICC line placement COMPARISON: April 2018 FINDINGS: A PICC line has been inserted with its tip in the mid superior vena cava. IMPRESSION: PICC line with its tip in the mid superior vena cava
[2019-02-12] MEDS ORDERED: POTASSIUM 25 MEQ EFFERV TAB PO ONE (16:12)
[2019-02-12] MEDS: POTASSIUM 25 MEQ EFFERV TAB PO ONE ×2 (22:25→22:48)
[2019-02-12] MEDS ORDERED: POTASSIUM CL SA 10 MEQ TAB PO ONE (22:51)
[2019-02-12] MEDS: D5 0.9 NS 1,000 ML IV SCH (23:18)
[2019-02-13] MEDS: GENTAMICIN 80 MG/100 ML BAG 80 MG/100 ML BAG IV SCH ×2 (01:00→14:01)
[2019-02-13 05:26] LABS: Potassium 4.1 mmol/L (3.5-5.1)
--- NOTE | 2019-02-13 10:03 | HP ---
Date of Admission: 02/12/2019 Reason For Admission: Infected decubitus ulcer and low potassium. History Of Present Illness: This is a 73-year-old female patient with advanced multiple sclerosis, w ho is bed-bound, as a result of this multiple sclerosis problem. The patient is having decubitus ulc er on the right buttock region and Dr. Nair is treating her at the long term and today I was cont acted by long term staff that the patient's potassium level was 2.8 and her wound culture from rig ht buttock decubitus grew Proteus ESBL and Dr. Nair is planning to do debridement procedure tomorrow for this infected decubitus and he started the patient on Zosyn at the long term where a PICC bekah e was placed. The patient has received 2 doses of Zosyn at long term and decision was made to adm it her to the hospital today after I talked to Dr. Nair. The patient was given 40 mEq of potassium chloride this morning for the low potassium and arrangements were made for her to be admitted to the hospital directly for direct admission. Dr. Nair was consulted and I saw her this evening. The pat iedorothy was complaining of pain in her buttock region because of decubitus, otherwise no other complaint s reported by her. Allergies: TO PENICILLIN. THE PATIENT SAYS YEARS AGO SHE HAD SOME RASH WITH PENICILLIN, BUT SHE HAS TAKEN AMPICILLIN WITHOUT ANY SIDE EFFECT AND SHE HAS RECEIVED 2 DOSES OF ZOSYN AT [facility] ANY SIDE EFFECT. SHE IS ALSO LISTED ALLERGIC TO ASPIRIN. Medications: List reviewed. Review of Systems: Dermatology: As mentioned above. PHYSICAL THERAPY INSTRUCTOR: As mentioned above. All other systems reviewed and negative. Past Medical History: Significant for multiple sclerosis, hypertension, allergic rhinitis, deep vein thrombosis of lower extremity, osteoporosis. Past Surgical History: IVC filter placement, January 2018. Family History: Not pertinent. Social History: Negative for smoking and alcohol use. Physical Examination: Vital Signs: Temperature 97.1, pulse 74, respiratory rate 16, blood pressure 122/54, oxygen saturati on 98%. Height 5 feet 3 inches, weight 135 pounds. General: Awake, alert, oriented, not in distress. HEENT: Head atraumatic, normocephalic. Conjunctivae nonerythematous. Sclerae white. Mouth, no thr ush or edema noted. Ears/Nose, no mass, lesion, discharge noted. Neck: Supple. No JVD, lymph nodes, bruit, thyromegaly noted. Lungs: Bilateral good equal air entry. Clear to auscultation. No rhonchi. No rales. Heart: Normal heart sounds, no murmur or gallop. Abdomen: Soft, bowel sounds normal. No guarding, rigidity, tenderness, mass, hepatosplenomegaly, dis tention, or bruit noted. Extremities: No leg edema. No calf tenderness. Skin: Large stage IV decubitus of right buttock and sacrococcygeal region has a small stage II decub itus. Lymphatics: No lymph node enlargement in neck, supraclavicular, infraclavicular region. Neuro: The patient has quadriplegia with minimum movement of upper extremity and significant wasting of all the 4 extremity muscles. She is not able to move lower extremity at all. Chest: Unremarkable. External Genitalia: Deferred. Rectal: Deferred. Laboratory Data: INR 1.11. Sodium 144, potassium 3.3, chloride 107, bicarb 30, BUN 20, creatinine 0 .62, glucose 100, liver function tests unremarkable. Albumin 2.0. Blood work done this morning on o utpatient basis had shown white count 7.1, hemoglobin 11.6, platelets 342, potassium was 2.8. Impression: 1.Right buttock infected decubitus ulcer. 2.Hypokalemia. 3.Multiple sclerosis. 4.Anemia. 5.Hypertension. 6.Allergic rhinitis. 7.Quadriplegia. Plan: Admit the patient to hospital for further evaluation and management of this problem. The [facility] ent is appropriate for inpatient and is expected to spend 2 midnights in the hospital. This morning, the patient was started on gentamicin, but after I talked to her, we will go ahead and discontinue g entamicin and start her on Zosyn. Dr. Nair was consulted. He is planning to take the patient to [facility] tomorrow for debridement and PICC line is in place. We will continue IV antibiotics. After th e debridement procedure, we will consider to discharge the patient either to go back to long term or long-term acute care facility depending on the patient's condition. Details and plan of treatment discussed with the patient. LAUREN/MODL Voice ID: [id number]
[2019-02-13] MEDS ORDERED: PROPOFOL 200 MG/20 ML VIAL IV ONE (10:45)
[2019-02-13] MEDS ORDERED: FENTANYL CITR 100 MCG/2 ML ONE (10:46)
[2019-02-13] MEDS ORDERED: MIDAZOLAM HCL 2 MG/2 ML INJ ONE (10:46)
[2019-02-13] MEDS ORDERED: LIDOCAINE 1% MPF 5 ML VIAL ONE (10:46)
[2019-02-13] MEDS ORDERED: Ringers Lactate 1,000 ML IV ONE (10:57)
[2019-02-13] MEDS ORDERED: COLLAGENASE 30 GM OINTMENT TOP ONE (11:20)
[2019-02-13] MEDS ORDERED: BUPIVACAINE 0.5% PF 10 ML VIAL ONE (11:20)
--- NOTE | 2019-02-13 11:37 | P.OP ---
Preoperative diagnosis: Infected Right Buttock wound Postoperative diagnosis: same Primary procedure: Debridement Right Buttock Wound to sq, muscle, and bone 8x6 cm Anesthesia: General Estimated blood loss: min Specimen: tissue for c&s Findings: as above Complications: None Transferred to: Recovery Room Condition: Good
[2019-02-13] MEDS ORDERED: ONDANSETRON 4 MG/2 ML VIAL ONE (11:45)
[2019-02-13 12:09] VITALS: O2SAT 100
[2019-02-13] MEDS ORDERED: TRAMADOL HCL 50 MG TAB PO PRN (15:24)
[2019-02-13] MEDS: PIPER/TAZO/NS 3.375gm 3.375 GM/100 ML BAG IVPB SCH (15:57)
[2019-02-13] MEDS ORDERED: PIPER/TAZO/NS 3.375gm 3.375 GM/100 ML BAG IVPB SCH (16:00)
--- NOTE | 2019-02-13 16:00 | PREOPCON ---
Date of Consultation: 02/12/2019 Reason For Consultation: Infected wound, right buttocks and sacral decubitus. History Of Present Illness: The patient is a 73-year-old female, who I saw last week in the [facility] and she had progressively worsening of wound on her right buttock. Cultures were done . Proteus ESBL grew out, not sensitive to meropenem. She also has preop workup done and blood work showed hypokalemia, therefore she was admitted by Dr. Villagomez yesterday from the [facility] for correc tion of her hypokalemia and scheduling of her debridement today. She is awake, alert. Denies any fe paris or chills. No purulent discharge. Complaining of some discomfort. No sore throat, runny nose, cough, headaches, or dizziness. No chest pain. Review of Systems: Otherwise unremarkable. Past Medical History: Significant for multiple sclerosis, hypertension, rhinitis, deep vein thrombos is, osteoporosis. Past Surgical History: IVC filter placement. Allergies: INCLUDE PENICILLIN. THE PATIENT DOES NOT SMOKE OR DRINK. Family History: Noncontributory. Physical Examination: Vital Signs: Stable. She is afebrile. She is awake, alert, and oriented x3. Head and Neck: Cranial nerves 2 through 12 are grossly within normal limits. No neck masses. No JV D. Throat clear. Neck is supple. Chest: Clear. Heart: S1, S2. Abdomen: Soft. Extremities: Neurovascularly intact. Neuro: Nonfocal. Skin: On the right buttock, there is approximately 8 x 6 cm area of an infected wound, stage IV with necrotic tissue in the base of it. No surrounding erythema. No purulent discharge. There is also stage II or II sacral decubitus in the midline with minimal fibrin present and is approximately 3 x 3 cm total area. Laboratory Data: Reviewed. Assessment: A 73-year-old female with multiple medical problems, infected right buttock wound as wel l as sacral decubitus. Recommendation: We will debride both areas today. The patient understands the risks, benefits, and alternatives and agrees to procedure and she is already on antibiotics and her hypokalemia has been c orrected. /MODL Voice ID: [id number] Report ID: [id number]
[2019-02-13] MEDS ORDERED: HOME MED 1 EA UNK (Ascorbic Acid [Vitamin C] 500 MG) PO SCH (21:00)
[2019-02-13] MEDS: JUVEN PACKET PO SCH (21:00)
[2019-02-13] MEDS: ZINC SULFATE 220 MG CAP PO SCH (21:00)
[2019-02-13] MEDS: ASCORBIC ACID 500 MG TABLET PO SCH (21:00)
[2019-02-13] MEDS: HOME MED 1 EA UNK (Arginine/Ascorbate Sod/Vite Ac [Arginaid Powder] 1 PACKET) PO SCH (21:00)
[2019-02-13] MEDS: METOPROLOL TAR 25 MG TAB PO SCH (21:00)
--- NOTE | 2019-02-13 22:39 | OP ---
Date of Procedure: 02/13/2019 Surgeon: Jose Nair MD Preoperative Diagnosis: Right buttock infected wound. Postoperative Diagnosis: Right buttock infected wound. Procedure Performed: Debridement of right buttock wound, 8 x 6 cm, to subcutaneous tissue, muscle, a nd bone. Estimated Blood Loss: Minimal. Specimens: Tissue for culture and sensitivity. Finding: As above. Anesthesia: General. Complications: None. Disposition: The patient tolerated the procedure in stable condition, taken to recovery in good gene ral condition. Description Of Procedure: The patient was brought to the OR and placed in supine position. General anesthesia was begun. The patient was placed in the left lateral position, prepped and draped in usu al sterile fashion. The sacral decubitus appeared to be just a stage II, did not need any debridemen t. There was minimal fibrin present, which was cleaned with gauze and curette. The right buttock wo und was approximately 8 x 6 cm and had some good granulation tissue, but also had necrotic tissue in the edges in the depth of the wound itself down to the bone. All of that necrotic tissue was debride d. Wound irrigated. Bleeding controlled with cautery. Curette was used. Scissors were utilized an d cautery was utilized and then collagenase wet-to-dry normal saline dressing change applied. The sia may tolerated the procedure in stable condition, taken to recovery in good general condition. /MODL Voice ID: [id number] Report ID: [id number]
[2019-02-14] MEDS: PIPER/TAZO/NS 3.375gm 3.375 GM/100 ML BAG IVPB SCH ×3 (01:00→17:57)
[2019-02-14] MEDS: HYDROCODONE/APAP 5/325 MG TAB PO PRN ×3 (01:44→18:28)
--- NOTE | 2019-02-14 02:33 | PN ---
Date of Progress Note: 02/13/2019 Subjective: The patient was seen this morning for followup. No new complaints, problems reported by the patient, sleeping, easily arousable, not in distress. Objective: Vital Signs: Reviewed. HEENT: Unremarkable. Lungs: Clear to auscultation. Heart: Sounds normal. Abdomen: Soft. Bowel sounds normal. No guarding, rigidity, tenderness, distention. Extremities: Trace leg edema. Impression: 1.Infected right buttock decubitus ulcer. 2.Multiple sclerosis. 3.Hypokalemia. Plan: We will go ahead and continue current medications. We will start IV Zosyn in place of gentami al. Dr. Nair did surgery today in form of debridement of this decubitus and we will get his recomm endation to see whether this patient's care can be provided at the halfway or if she needs to go to long-term acute care facility. In that case, we should consult [facility] for further management of wound care as well as IV antibiotic therapy. The patient has reported that she has taken ampicillin in the past without any side effect and also at the halfway, she r eceived 2 doses of Zosyn without any side effects. We will continue Zosyn and discontinue gentamicin to avoid any nephrotoxicity. LAUREN/MODL Voice ID: [id number] Report ID: [id number]
[2019-02-14] MEDS ORDERED: HOME MED 1 EA UNK (Cetirizine Hcl [Zyrtec] 10 MG) PO SCH (09:00)
[2019-02-14] MEDS: HOME MED 1 EA UNK (Arginine/Ascorbate Sod/Vite Ac [Arginaid Powder] 1 PACKET) PO SCH (09:00)
[2019-02-14] MEDS ORDERED: CETIRIZINE HCL 5 MG TABLET PO SCH (09:00)
[2019-02-14] MEDS ORDERED: MULTIVITAMIN TAB PO SCH (09:00)
[2019-02-14] MEDS ORDERED: COLLAGENASE 30 GM OINTMENT TOP SCH (09:00)
[2019-02-14] MEDS: ASCORBIC ACID 500 MG TABLET PO SCH (09:11)
[2019-02-14] MEDS: ZINC SULFATE 220 MG CAP PO SCH (09:11)
[2019-02-14] MEDS: JUVEN PACKET PO SCH (09:12)
[2019-02-14] MEDS: METOPROLOL TAR 25 MG TAB PO SCH (09:12)
[2019-02-14] MEDS: D5 0.9 NS 1,000 ML IV SCH (09:17)
--- NOTE | 2019-02-14 11:48 | P.PN ---
Subjective Date of Service: 02/14/19 Primary Care Provider: Dr. Villagomez (I am covering for him) Chief Complaint: Sacral wound Subjective: Doing well Physical Examination - Vital Signs Temperature: 97.3 F Blood Pressure: 109/52 Pulse: 94 Respirations: 17 Pulse Ox (%): 95 - Physical Exam General: Alert, In no apparent distress, Cooperative HEENT: Atraumatic Neck: Supple Respiratory: Clear to auscultation bilaterally, Normal air movement Cardiovascular: Normal pulses, Regular rate/rhythm Neurological: Other (patient is bedbound) - Studies Laboratory Data (last 24 hrs) 02/14/19 00:30: Creatinine Cancelled Medications List Reviewed: Yes Assessment & Plan Discharge Plan: LTAC Plan to discharge in: 24 Hours Physician Review Additional Text: Impression: Infected Right Buttock wound to the muscle and bone, measuring 8 by 6 cm, Wound culture positive for Proteus mirabilis-ESBL Multiple Sclerosis Hypokalemia with dehyration Hypertension Plan: Infected Right Buttock wound to the muscle and bone, measuring 8 by 6 cm, Wound culture positive for Proteus mirabilis-ESBL: I am covering for Dr. Villagomez. Case discussed with him yesterday. Case discussed with surgery today. Patient status post debridement of the right buttocks wound. Surgery recommends aggressive wound care with wound VAC-KCI. Surgery also recommends long-term acute care facility placement since skilled placement/residential does not provide wound VAC-KCI. Patient currently on IV Zosyn due to positive wound culture: Proteus-ESBL. Social work to help with transfer to LTAC. Dr. Villagomez prefers [facility] since infectious disease is on the case and can follow patient there. I will turn the over service over to Dr. Burns tomorrow. I will go over the plan of care with her. Multiple Sclerosis: Currently stable this time. Hypokalemia with dehyration: Continue IV fluids. Continue monitor and adjust appropriately. Hypertension: Patient currently on metoprolol. Continue to monitor and adjust appropriately. Time Spent Managing Pts Care (In Minutes): 55
[2019-02-14] MEDS ORDERED: D5 0.45 NS 1,000 ML IV SCH (12:00)
--- NOTE | 2019-02-14 14:31 | PN ---
Date of Progress Note: 02/14/2019 Subjective: The patient is awake, alert, complaining of some wound pain. Objective: Vital Signs: Stable. Afebrile. Dressing is clean, dry, intact. Wound is clean. Assessment: Status post debridement of right buttock wound and sacral decubitus. Recommendations: Nutritional optimization. Vitamins as ordered. Offloading air mattress. Zosyn fo r the Proteus ESBL and we will start wound VAC with collagenase tomorrow. LTAC will be consulted for discharge planning. /MODL Voice ID: [id number] Report ID: [id number]
--- NOTE | 2019-02-14 17:57 | P.DS ---
Admission Date: 02/12/19 Discharge Date: 02/14/19 Primary Care Provider: Dr. Villagomez (I am covering for him) Disposition: [facility] Discharge Condition: GOOD Reason for Admission: Sacral wound Consultations: Surgery-Dr. Nair Procedures: Surgery: Date of Procedure: 02/13/2019 Surgeon: Jose Nair MD Preoperative Diagnosis: Right buttock infected wound. Postoperative Diagnosis: Right buttock infected wound. Procedure Performed: Debridement of right buttock wound, 8 x 6 cm, to subcutaneous tissue, muscle, and bone. Estimated Blood Loss: Minimal. Specimens: Tissue for culture and sensitivity. Finding: As above. Anesthesia: General. Complications: None. Medical Problem List: Infected Right Buttock wound to the muscle and bone, measuring 8 by 6 cm, Wound culture positive for Proteus mirabilis-ESBL, status post debridement Multiple Sclerosis Hypokalemia with dehyration Hypertension Anemia of chronic disease Quadriplegia Brief History of Present Illness: 73-year-old female presented with infected sacral ulcer. Patient was admitted for treatment. Hospital Course: I am covering for Dr. Villagomez. Notes reviewed. Patient presented with infected right buttocks wound to the muscle and bone. Area measures 8 x 6 cm. Wound culture was positive for Proteus mirabilis-ESBL. Patient was admitted for antibiotic treatment. Patient seen by surgery. Surgical debridement was done. Surgery recommends aggressive wound care with wound VAC-KCI. Patient currently on IV Zosyn. [facility] for continued aggressive wound care and long-term IV antibiotic therapy. Patient was approved. [facility] to further address. Patient with underlying multiple sclerosis, hypertension and quadriplegia. Continue with current medications. Patient clinically stable for transfer. Vital Signs/Physical Exam: Temp Pulse Resp BP Pulse Ox 97.2 F 76 18 113/47 L 95 02/14/19 12:00 02/14/19 12:00 02/14/19 12:00 02/14/19 12:00 02/14/19 12:00 General: Alert, In no apparent distress, Cooperative HEENT: Atraumatic Neck: Supple Respiratory: Clear to auscultation bilaterally, Normal air movement Cardiovascular: Normal pulses, Regular rate/rhythm Laboratory Data at Discharge: PT 13.1 SECONDS (9.5-12.5) H 02/12/19 12:05 INR 1.11 02/12/19 12:05 Sodium 145 mmol/L (136-145) 02/13/19 04:55 Potassium 4.1 mmol/L (3.5-5.1) 02/13/19 04:55 BUN 17 mg/dL (7-18) 02/13/19 04:55 Creatinine 0.66 mg/dL (0.55-1.3) 02/13/19 04:55 Glucose 117 mg/dL (74-106) H 02/13/19 04:55 Magnesium 2.3 mg/dL (1.8-2.4) 02/12/19 12:05 Total Bilirubin 0.3 mg/dL (0.2-1.0) 02/12/19 12:05 AST 20 U/L (15-37) 02/12/19 12:05 ALT 22 U/L (12-78) 02/12/19 12:05 Alkaline Phosphatase 153 U/L (45-117) H 02/12/19 12:05 Home Medications: Ascorbic Acid [Vitamin C] 500 mg PO BID 01/12/18 Cetirizine HCl [Zyrtec] 10 mg PO DAILY 01/12/18 Interferon Beta-1A [Avonex] 0.5 ml IM EVERY 7TH DAY 01/12/18 Multivitamin [Multiple Vitamins] 1 tab PO DAILY 01/12/18 Arginine/Ascorbate Sod/Edgar AC [Arginaid Powder] 1 packet PO BID 04/23/18 Collagenase [Santyl Ointment*] 1 appl TOP DAILY 04/23/18 Metoprolol Tartrate [Lopressor*] 25 mg PO BID 04/23/18 Zinc Sulfate [Zinc Sulfate*] 220 mg PO BID 04/23/18 Tramadol HCl [Ultram] 50 mg PO Q12HP PRN 02/12/19 Patient Discharge Instructions: Patient be transferred to long-term acute care facility to continue aggressive wound care, wound VAC, and long-term IV antibiotic therapy. Diet: AHA Activity: Bedrest Time spent managing pt's care (in minutes): 55
[2019-02-14 18:05] VITALS: BP 118/55; TEMP 97.6
[2019-02-20] MEDS ORDERED: [UNRECOGNIZED DRUG - OTHER] IM SCH (09:00)
== END 2019-02-14 21:05 | DRG 579 ==
LOC: UNDOADMIN 08:10 → 4TH 08:10
PROVIDERS: ADMIT Internal Medicine; ATTEND Family Medicine
PROC: 0QD20ZZ Extraction of Right Pelvic Bone, Open Approach (ICD-10-PCS; principal; 2019-02-13 10:45)
DX: L89.314 Pressure ulcer of right buttock, stage 4 (principal); G82.50 Quadriplegia, unspecified; L89.152 Pressure ulcer of sacral region, stage 2; G35 Multiple sclerosis; B96.4 Proteus (mirabilis) (morganii) as the cause of diseases classified elsewhere; Z16.12 Extended spectrum beta lactamase (ESBL) resistance; E86.0 Dehydration; Z74.01 Bed confinement status; I10 Essential (primary) hypertension; E87.6 Hypokalemia; D63.8 Anemia in other chronic diseases classified elsewhere; M81.0 Age-related osteoporosis without current pathological fracture; J30.9 Allergic rhinitis, unspecified; Z86.718 Personal history of other venous thrombosis and embolism; Z88.0 Allergy status to penicillin
CPT/HCPCS: 36415; 71045; 80048; 80053; 83735; 84132; 85025; 85610; 88304; 88305; J1580; J2250; J2405; J2543; J2704; J3010; J3590